=== PATIENT | female | born 1930 | race Caucasian/White ===

== ENCOUNTER 2016-09-06 00:21 | Emergency (ER) ==
[2016-09-06 00:21] VITALS: BMI 26.5
[2016-09-06] MEDS ORDERED: DECADRON 4 MG/ML SDV IM STA (00:31)
[2016-09-06] MEDS ORDERED: TORADOL IM STA (00:31)
[2016-09-06 00:32] VITALS: BP 146/83
--- NOTE | 2016-09-06 00:41 | ED.PDOC ---
General ED Provider: Dr. GERA BORJA Chief Complaint: Hip Pain/Injury Stated Complaint: Been hurting in the left hip and pain goes down, Dr borja, i have sciatica, hurting whole week, today is worse. daughter is in the room, no recent falls. n Time Seen by Physician: 00:57 Mode of Arrival: Wheelchair Information Source: Patient Primary Care Provider: ELSA NASCIMENTO Nursing and Triage Documentation Reviewed and Agree: Yes Musculoskeletal Complaint Exam - Hip/Pelvis Complaint/Exam Location of Pain: Reports: Left Mechanism of Injury: Reports: No known trauma Symptoms Are: Still present Initial Severity: Moderate Current Severity: Severe Location: Reports: Radiating Character: Reports: Aching, Throbbing Aggravating: Reports: Movement Alleviating: Reports: None Associated Signs and Symptoms: Denies: Swelling, Redness, Bruising, Fever, Weakness, Dizziness, Syncope, Abdominal pain, Knee pain Related History: Reports: Similar episode Able to Bear Weight: Yes Septic Arthritis Risk Factors: Reports: None Related Surgical History: Reports: None Rotation: Internal Pelvis Palpation: Stable Hip/Pelvis Findings: Absent: Extremity shortened, Swelling Tenderness: Present: Greater Trochanter Range of Motion Limited In: Present: Flexion, Extension, Abduction, Adduction Differential Diagnoses: Arthritis, Sciatica, Sprain Review of Systems - Review Of Systems Constitutional: Reports: No symptoms Eyes: Reports: No symptoms Ears, Nose, Mouth, Throat: Reports: No symptoms Respiratory: Reports: No symptoms Cardiac: Reports: No symptoms GI: Reports: No symptoms : Reports: No symptoms Musculoskeletal: Reports: Back pain, Joint pain Skin: Reports: No symptoms Neurological: Reports: No symptoms Endocrine: Reports: No symptoms Hematologic/Lymphatic: Reports: No symptoms All Other Systems: Reviewed and Negative Past Medical History - Past Medical History Previously Healthy: No Endocrine: Reports: Dyslipidemia Cardiovascular: Reports: Hypertension Respiratory: Reports: None Hematological: Reports: None Gastrointestinal: Reports: None Genitourinary: Reports: None Neuro/Psych: Reports: None Musculoskeletal: Reports: Arthritis, Back Pain Cancer: Reports: None Last Menstrual Period: post menopausal - Surgical History General Surgical History: Reports: Appendectomy, Cholecystectomy, CABG - Family History Family History: Reports: None - Social History Smoking Status: Never smoker Hx Substance Use: No Alcohol Screening: None - Immunizations Tetanus Shot up to Date: Yes Physical Exam - Physical Exam Appearance: Ill-appearing Pain Distress: Moderate Eyes: EOMI ENT: Ears normal, Nose normal, Oropharynx normal Respiratory: Airway patent, Breath sounds clear, Breath sounds equal, Respirations nonlabored Cardiovascular: RRR, Pulses normal, No rub, No murmur GI/: Soft, Nontender, No masses, Bowel sounds normal, No Organomegaly Musculoskeletal: Limited ROM, Limited strength Skin: Warm, Dry, Normal color Neurological: Sensation intact, Motor intact, Reflexes intact, Cranial nerves intact, Alert, Oriented Psychiatric: Affect appropriate, Mood appropriate Critical Care Note - Critical Care Note Total Time (mins): 0 Course - Course Orders, Labs, Meds: Orders Category Date Time Status Dexamethasone 4 mg/ml Inj [Decadron 4 mg/ml Sdv] MEDS 09/06/16 00:31 Discontinued 4 mg IM ONCE STA Ketorolac Tromethamine [Toradol] MEDS 09/06/16 00:31 Discontinued 60 mg IM ONCE STA CT PELVIS W/O CONTRAST Stat RADS 09/06/16 00:31 Ordered Medications Discontinued Medications Generic Name Dose Route Start Last Admin Trade Name Freq PRN Reason Stop Dose Admin Dexamethasone Sodium Phosphate 4 mg 09/06/16 00:31 09/06/16 00:39 Decadron 4 Mg/Ml Sdv IM 09/06/16 00:32 4 mg ONCE STA Administration Ketorolac Tromethamine 60 mg 09/06/16 00:31 09/06/16 00:43 Toradol IM 09/06/16 00:32 60 mg ONCE STA Administration Vital Signs: Temp Pulse Resp BP Pulse Ox 09/06/16 00:44 100.2 F H 09/06/16 00:22 100 F H 92 H 22 146/83 H 98 Departure - Departure Time of Disposition: 01:01 Disposition: HOME SELF-CARE Discharge Problem: Hip pain Sciatica Qualifiers: Laterality: left Qualifier Code: (M54.32) Sciatica, left side Instructions: Hip Pain (ED), Arthralgia (ED) Condition: Stable Pt referred to PMD for follow-up: Yes Additional Instructions: rest please have f/u with PMD in 3-4 days patient daughter is with her Prescriptions: Hydrocodone/Acetaminophen [[place] 5-325 Tablet] 1 tab PO TID PRN #12 tablet PRN Reason: PAIN Prednisone 10 mg PO BIDWM #14 tablet Allergies/Adverse Reactions: Allergies cephalexin monohydrate [From Realie] Adverse Reaction (Verified 09/06/16 00:31) Rash Home Medications: Ambulatory Orders Aspirin [Aspirin EC] 81 mg PO BEDTIME 06/01/13 Lovastatin 40 mg PO BEDTIME 06/01/13 Amlodipine Besylate [Norvasc] 5 mg PO DAILY #30 tablet 06/06/13 Lisinopril/Hydrochlorothiazide [Lisinopril-Hctz 20-25 mg Tab] 1 each PO DAILY # 30 tablet 06/06/13 Clonidine HCl [Catapres] 0.1 mg PO DAILY 05/12/15 Biotin 1,000 mcg PO DAILY 06/04/16 Calcium Carbonate/Vitamin D3 [Calcium 500 + D Tablet] 1 tab PO DAILY 06/04/16 Hydrocodone/Acetaminophen [[place] 5-325 Tablet] 1 tab PO TID PRN #12 tablet 09/06 Prednisone 10 mg PO BIDWM #14 tablet 09/06/16 Disposition Discussed With: Patient
[2016-09-06 00:45] VITALS: TEMP 100.2
--- NOTE | 2016-09-06 01:53 | CT ---
EXAM: CT pelvis without intravenous contrast 09/06/2016. Sagittal and coronal reformatted images o btained. HISTORY: Left hip pain. Question sciatic nerve pain COMPARISON: None. FINDINGS: No acute soft tissue process within the pelvis. No acute fracture or dislocation identified within the pelvis, right or left hip. Severe degenerative changes of both the right and left hip. End-stage degenerative change of the ri ght hip. [id number] apposition with articular sclerosis, osteophyte formation and subchondral cys t formation. Bulky osteophyte formation at the level of the left hip. IMPRESSION: 1. No acute fracture or subluxation. There is no acute osseous abnormality identified within the p emma, right hip or left hip. 2. Severe degenerative changes of the right and left hip, right greater than left. 3. Additional details as above.
--- NOTE | 2016-09-06 01:56 | CT ---
EXAM: CT scan lumbar spine HISTORY: Left-sided sciatica COMPARISON: None. FINDINGS: Contiguous axial images were obtained through the lumbar spine utilizing three millimeter collimation.. There is mild levoscoliosis There is a 2 mm anterolisthesis of L3 upon L4. Degenera te disc disease . L1-L2 through L4-L5 . Segmental analysis: T12-L1 The central canal foramen are patent. There is facet arthropathy. L1-L2: Moderate concentric disc bulge with facet arthropathy. The central canal and foramen are patent. L2-L3: Moderate concentric disc bulge with facet arthropathy. The central canal and foramen are patent. L3-L4: There is moderate concentric disc bulge with ligamentum flavum and facet hypertrophy stenosing the c entral canal with mild bilateral neural foraminal narrowing. L4-L5: There is a concentric disc bulge with ligamentum flavum and facet hypertrophy narrowing the central canal. There is mild left neural foraminal narrowing. L5-S1: There is mild concentric disc bulge with moderate facet arthropathy. The central canal and foramen are patent. 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 There is central canal stenosis L3-L4 and L4-L5 with neural foraminal narrowing as described.
== END 2016-09-06 02:30 | disposition home or self-care (01) ==
LOC: ED 00:21
DX: M54.32 Sciatica, left side (principal); M25.552 Pain in left hip; Z79.899 Other long term (current) drug therapy
CPT/HCPCS: 96372; 99283

== ENCOUNTER 2016-12-15 06:40 | Outpatient (CLI) ==
[2016-12-15] MEDS ORDERED: ATROPINE SULFATE PFS ONE (06:57)
[2016-12-15] MEDS ORDERED: DOBUTAMINE 250 ML IV ONE (06:57)
--- NOTE | 2016-12-17 08:20 | ECHOSTRESS ---
Date of Exam: 12/15/16 Ordering Physician: ELSA NASCIMENTO Reason for Echo: HTN, CAD, SURGICAL CLEARANCE, DOBUTAMINE STRESS--NO ISCHEMIA M-Mode Normal Adult Results LV Dimensions Normal Adult Results AoV Opening excursions >1.6 LVEDD-base- 3.5-5.8 Ao root dimensions 2.0-3.7 LVESD-base- 3.1-4.6 L. Atrium dimensions 1.9-3.8 Post. Wall thickness 0.8-1.1 IV septum (thickness) 0.7-1.2 Post. Wall excursion 0.72-1.3 Septal motion Systolic motion R. Ventricular cavity 1.5-2.0 LVEF 60% Paradoxical septal wall motion 2-D: NORMAL LEFT VENTRICULAR CONTRACTILITY--RESTING AND WITH DOBUTAMINE INFUSION M-MODE: MV: AV: TV: PV: CHAMBER SIZE: WALL MOTION: NORMAL LEFT VENTRICULAR CONTRACTILITY--RESTING AND WITH DOBUTAMINE INFUSION PERICARDIUM: INTERPRETATION: 1. NORMAL LEFT VENTRICULAR CONTRACTILITY--RESTING AND WITH DOBUTAMINE INFUSION MTDD
--- NOTE | 2016-12-17 08:24 | ECHO2D ---
Date of Exam: 12/15/16 Ordering Physician: ELSA NASCIMENTO Reason for Echo: HTN, CAD, SURGICAL CLEARANCE Auscultation: S1, S2 M-Mode Normal Adult Results LV Dimensions Normal Adult Results AoV Opening excursions >1.6 >1.6 LVEDD-base- 3.5-5.8 4.8 Ao root dimensions 2.0-3.7 2.7 LVESD-base- 3.1-4.6 L. Atrium dimensions 1.9-3.8 3.4 Post. Wall thickness 0.8-1.1 0.8 IV septum (thickness) 0.7-1.2 0.9 Post. Wall excursion 0.72-1.3 NORMAL Septal motion NORMAL Systolic motion R. Ventricular cavity 1.5-2.0 NORMAL LVEF 60% 56% Paradoxical septal wall motion NORMAL 2-D : 2-D M Mode Echocardiogram was performed using apical four chamber and left parasternal long and short axis views. Mitral, tricuspid and aortic valves appear to be normal. Contractility of the left ventricle seems to be normal, so is the cavity size. Left atrial cavity size and aortic root appear to be normal. There is no pericardial effusion. There is no thrombus noted in the left ventricular or left aortic cavity. No mitral valve prolapse noted. M-MODE: MV: NORMAL AV: NORMAL TV: NORMAL PV: CHAMBER SIZE: NORMAL WALL MOTION: NORMAL PERICARDIUM: NORMAL INTERPRETATION: 1. NORMAL LEFT VENTRICULAR CONTRACTILITY 2. NORMAL VALVES 3. NORMAL LEFT VENTRICLE AND LEFT ATRIAL SIZE MTDD
--- NOTE | 2016-12-17 08:32 | DOBSTECHO ---
Ordering Physician: ELSA NASCIMENTO Date of Test: 12/15/16 Reason for Examination: HTN, CAD, SURGICAL CLEARANCE Cardiac History: CABG X 3 Current Medications: MEVACOR, NORVASC, CLONIDINE,ULTRAM, ZESTORETIC, LOPRESSOR Height: 62" Weight: 150 LBS Target Heart Rate: 115/136 ST Segment Stage Time HR BPM BP mmhg Rhythm +/- Up Down Comments/Symptoms Control Sitting 55 144/68 SR X NONE Dobutamine 250mg/D5W 5cmg/KG/mn 10cmg/KG/mn 3" 85 146/64 SR X NONE 15cmg/KG/mn 2" 95 146/56 SR X NONE 20cmg/KG/mn 2" 110 SR X NONE 25cmg/KG/mn :20 117 SR X NONE 30cmg/KG/mn 35cmg/KG/mn 40cmg/KG/mn Time: 4 HR B/P Time: 8 HR B/P Time: HR B/P Recovery 100 132/68 Recovery 72 Recovery Total Time: 7:20 Maximum Heart Rate Reached: 117 Interpretation: 1. NO EVIDENCE OF ISCHEMIA BY ST-T WAVE 2. NO CHEST PAIN OR CHEST DISCOMFORT 3. NORMAL LEFT VENTRICULAR CONTRACTILITY--BEFORE AND DURING DOBUTAMINE INFUSION MTDD
== END 2016-12-15 06:41 | disposition home or self-care (01) ==
LOC: CAR 06:40
PROVIDERS: ATTEND Internal Medicine
DX: Z01.810 Encounter for preprocedural cardiovascular examination (principal); I10 Essential (primary) hypertension; I25.10 Atherosclerotic heart disease of native coronary artery without angina pectoris
CPT/HCPCS: 93005; 93010

== ENCOUNTER 2017-01-22 11:10 | Inpatient (IN) ==
[2017-01-22 12:20] VITALS: BMI 28.5
--- NOTE | 2017-01-22 14:17 | DI ---
EXAM: Chest one view HISTORY: Low saturation COMPARISON: 05/12/2015 TECHNIQUE: Single view of the chest was performed FINDINGS: Bibasilar atelectasis and/or infiltrate. There is no pleural effusion or pneumothorax. The heart is borderline enlarged in size. The mediastinal contour is normal, noting atherosclerosis . Median sternotomy wires.. There are no acute abnormalities of the bones. IMPRESSION: Bibasilar atelectasis and/or pneumonia.
[2017-01-22 14:34] LABS: ABG BASE EXCESS -3 (-2.0-2.0); ABG HCO3 22.4 (22.0-26.0); ABG PCO2 38.3 mmHg (35-45); ABG PH 7.375 (7.35-7.45)
[2017-01-22 14:35] LABS: ABG TCO2 24 (22.0-28.0)
[2017-01-22] MEDS ORDERED: XOPENEX 1.25 MG NEB STA (16:07)
[2017-01-22] MEDS: XOPENEX 1.25 MG NEB SCH ×2 (16:20→23:07)
[2017-01-22] MEDS: XARELTO PO SCH (16:56)
[2017-01-22 18:27] LABS: CREATINE KINASE MB 11.3 ng/ml (0.0-3.6)
[2017-01-22] MEDS: LOPRESSOR PO SCH (20:42)
[2017-01-22] MEDS: MEVACOR PO SCH (20:42)
[2017-01-22] MEDS: CATAPRES PO SCH (20:43)
[2017-01-22] MEDS: OXYCODONE PO PRN (20:48)
[2017-01-22] MEDS ORDERED: NON-FORMULARY MEDICATION (Lovastatin [Lovastatin] 40 MG) PO SCH ×22 (21:00)
[2017-01-23] MEDS: XOPENEX 1.25 MG NEB SCH ×4 (05:06→23:10)
[2017-01-23 06:21] LABS: BASOPHILS % (AUTO) 0.2 % (0.0-3.0); EOSINOPHILS # (AUTO) 0.1 K/ul (0.0-0.7); EOSINOPHILS % (AUTO) 1.2 % (0.0-7.0); HEMATOCRIT 28.3 % (37.0-47.0); HEMOGLOBIN 9.8 g/dl (12.0-16.0); IMMATURE GRANULOCYTE % (AUTO) 0.5 % (0.0-5.0); LYMPHOCYTES # (AUTO) 1.6 K/uL (0.60-3.4); LYMPHOCYTES % (AUTO) 17.2 (10.0-50.0); MEAN CORPUSCULAR HEMOGLOBIN 30.2 pg (27.0-31.0); MEAN CORPUSCULAR HGB CONC 34.6 (31.8-35.4); MEAN CORPUSCULAR VOLUME 87.1 fl (81.0-99.0); MONOCYTES # (AUTO) 0.9 K/uL (0.4-2.0); MONOCYTES % (AUTO) 9.5 (0-10); NEUTROPHILS # (AUTO) 6.8 K/ul (2.0-6.9); NEUTROPHILS % (AUTO) 71.4; PLATELET COUNT 172 10^3/uL (140-440); RED BLOOD COUNT 3.25 10^6/ul (4.20-5.40); WHITE BLOOD COUNT 9.56 K/ul (4.6-10.2)
[2017-01-23 06:41] LABS: ALBUMIN 2.6 g/dL (3.4-5.0); ALBUMIN/GLOBULIN RATIO 0.84; ANION GAP 13.5; BILIRUBIN,TOTAL 0.58 mg/dL (0.00-1.20); BUN/CREATININE RATIO 18.18; CALCIUM 8.9 mg/dL (8.2-10.2); CREATININE 0.77 mg/dL (0.60-1.30); POTASSIUM 3.5 mmol/L (3.5-5.10); TOTAL PROTEIN 5.7 g/dL (5.8-8.1)
[2017-01-23] MEDS: HYDROCHLOROTHIAZIDE PO SCH (08:17)
[2017-01-23] MEDS: CALCIUM 500 + VIT D 200 MG TABLET PO SCH (08:17)
[2017-01-23] MEDS: LOPRESSOR PO SCH (08:18)
[2017-01-23] MEDS: ZESTRIL PO SCH (08:18)
[2017-01-23] MEDS: NON-FORMULARY MEDICATION (Biotin [Biotin] 1,000 MCG) PO SCH (08:18)
[2017-01-23] MEDS: NORVASC PO SCH (08:18)
[2017-01-23] MEDS ORDERED: VITAMIN D3 T PO SCH (09:00)
[2017-01-23] MEDS ORDERED: CATAPRES PO SCH (09:00)
[2017-01-23] MEDS ORDERED: CALCIUM CARBONATE PO SCH (09:00)
[2017-01-23] MEDS ORDERED: [UNRECOGNIZED DRUG - OTHER] PO SCH (09:00)
--- NOTE | 2017-01-23 09:35 | HP ---
DATE OF SERVICE: 01/22/17 REASON FOR HOSPITALIZATION: Total right hip orthoplasty reason for it osteoarthritis HISTORY OF PRESENT ILLNESS: The patient is an 87 year old white female underwent total right hip arthroplasty two days ago. The patient's progress in the past two days has been very remarkable. She has done well and she has tolerated the surgery well with no post op complications so far. When she arrived at [facility] from [facility] her oxygen saturation was found to be in low 80's. It is to be noted that patient has history of chronic lung disease with drop in the oxygen saturation was from activity that she had to undergo from parking lot to the room that she is staying in now. When I saw the patient nearly two hours after that the patient was stable with no distress at all and her oxygen saturation was nearly 93% on 3 liters. The patient was talking with no distress at all, she looked normal. She complained of mild soreness in the right hip. REVIEW OF SYSTEMS: CONSTITUTIONAL: No night sweats. No fatigue, malaise, lethargy. No fever or chills. HEENT: Eyes: No visual changes. No eye pain. No eye discharge. ENT: No runny nose. No epistaxis. No sinus pain. No sore throat. No odynophagia. No ear pain. No congestion. RESPIRATORY: No cough, no congestion. No hemoptysis. CARDIOVASCULAR: No angina symptoms. No CHF symptoms. No atypical chest pain for CAD. No palpitations. No shortness of breath. GASTROINTESTINAL: No abdominal pain. No nausea or vomiting. No diarrhea or constipation. No hematemesis. No hematochezia. GENITOURINARY: No urgency. No frequency. No dysuria. No hematuria. No obstructive symptoms. No discharge. No pain. No significant abnormal bleeding. MUSCULOSKELETAL: No musculoskeletal pain. No joint swelling. No arthritis. Mild right hip soreness. NEUROLOGICAL: No headache. No neck pain. No syncope. No seizures. No dizziness. PSYCHIATRIC: Not anxious. No depression. No suicidal thoughts. No homicidal thoughts. SKIN: No rash. No lesions. No wounds. ENDOCRINE: No unexplained weight loss. No weight gain. HEMATOLOGIC/LYMPHATIC: No anemia. No purpura. No petechiae. No prolonged or excessive bleeding. No palpable lymph nodes. PERSONAL/FAMILY/SOCIAL HISTORY: The patient is and taken care of by family members and daughters. She is non-smoker and no alcohol abuse. PAST MEDICAL/SURGICAL PROBLEMS: The patient has history of now right hip replacement Chronic lung disease Severe hypertension MEDICATIONS: Aspirin Lovastatin Amlodipine Lisinopril Hydrochlorothiazide Clonidine Calcium Carbonate ALLERGIES: Keflex PHYSICAL EXAMINATION: GENERAL: The patient is oriented to time, place and person. VITAL SIGNS: Temperature 98.6, pulse 80, respiratory rate 15, blood pressure 130/70. HEENT: Head normocephalic, atraumatic. Eyes: Extraocular muscles are intact. Pupils are equal, round and reactive to light and accommodation. Ears: No lesions. Nose appeared normal. Throat: No exudate or erythema. NECK: Supple. No JVP, no carotid bruit. No lymphadenopathy or thyromegaly. LUNGS: Decreased breath sounds but clear to auscultation. No wheezing. Percussion note normal. Chest symmetrical. HEART: S1, S2, no S3. No murmurs. No cyanosis or clubbing. No ascites. Pulses: Dorsalis pedis and posterior tibial pulses +1 bilaterally. ABDOMEN: Soft. Nontender. Bowel sounds active. No CVA tenderness. No mass felt. EXTREMITIES: No edema. Full range of motion of all extremities, equal. Right hip incision looks clean. No evidence of infection. No drainage. Both calf muscles are non-tender. NEUROLOGIC: No focal deficit. Cranial nerves II through XII are grossly intact. No headache, no double vision or headache. SKIN: Not dry. Intact. Turgor - normal. LYMPHATIC: No palpable lymph nodes/no lymphedema. MUSCULOSKELETAL: Normal joints with no swelling. Muscle tone is normal. ASSESSMENT: 1. Right hip arthroplasty 2. Chronic lung disease 3. Hypertension 4. Dyslipidemia PLAN: 1. Continue Metoprolol 25mg twice a day 2. Xarelto 20mg PO daily 3. Valium 5mg Q 6 hours 4. Bactrim DS twice a day daily 5. Will add Xopenex four times a day PRN, starting one now 6. Oxygen 2-3 liters 7. ABG's were done 8. EKG showed right bundle branch type of pattern, no acute changes 9. Telemetry 10. Will have oximetry 11. The patient had a chest x-ray done which showed a bibasilar atelectasis and or pneumonia. My opinion the patient is not in distress and she doesn't have fever or chills and breathing quietly with no cough and no congestion. The patient has bibasilar atelectasis the patient would be given Xopenex treatment. 12.The patient's atrial blood gasses on three liters pO2 63, pCO2 30, pH 7.37 with 91% saturation which is acceptable. CONDITION: Stable The patient's daughters are in the room and discussed the patient's condition which is stable. TIME SPENT: More than 70 minutes. ELVA
--- NOTE | 2017-01-23 10:36 | PCM.PROG ---
Attending Provider: ATTENDING PROVIDER: Dr. ELSA NASCIMENTO DATE OF SERVICE: 01/23/17 SUBJECTIVE: This 87 year old WHITE/ F was hospitalized 01/22/17. The patient was admitted yesterday to swing bed for PT after total right hip replacement. The patient is up and about going to bathroom today. Chest x-ray showed bibasilar atelectasis, is on oxygen at 3L doing neb treatments. REVIEW OF SYSTEMS: CONSTITUTIONAL: Fatigue. No night sweats. No fever or chills. HEENT: Eyes: No visual changes. No eye pain. No eye discharge. ENT: No runny nose. No epistaxis. No sinus pain. No odynophagia. No congestion. RESPIRATORY: No cough, no congestion. No hemoptysis. CARDIOVASCULAR: No angina symptoms. No CHF symptoms. No atypical chest pain for CAD. No palpitations. Shortness of breath on minimal exertion. GASTROINTESTINAL: No abdominal pain. No nausea or vomiting. No diarrhea or constipation. No hematemesis. No hematochezia. GENITOURINARY: No urgency. No frequency. No dysuria. No hematuria. No obstructive symptoms. No discharge. No pain. No significant abnormal bleeding. MUSCULOSKELETAL: Weakness. No musculoskeletal pain; no joint swelling. NEUROLOGICAL: Awake, alert, oriented to time, place and person. No headache. No neck pain. No syncope. No seizures. No dizziness. PSYCHIATRIC: Not anxious. No depression. No suicidal thoughts. No homicidal thoughts. SKIN: No rash. Healing incision, right groin area, little bruising. ENDOCRINE: No unexplained weight loss. No weight gain. HEMATOLOGIC/LYMPHATIC: No anemia. No purpura. No petechiae. No prolonged or excessive bleeding. No palpable lymph nodes. PHYSICAL EXAMINATION: GENERAL: The patient is awake, alert and oriented, sitting up in bed in no distress. VITAL SIGNS: Temperature 98 F, Pulse 68, Respiratory Rate 16, BP 139/60, Pulse Ox 99% HEENT: Head normocephalic, atraumatic. Eyes: Extraocular muscles are intact. Pupils are equal, round and reactive to light and accommodation. Ears: No lesions. Nose appeared normal. Throat: No exudate or erythema. NECK: Supple. No JVD, no carotid bruit. No lymphadenopathy or thyromegaly. LUNGS: Bilaterally decreased breath sounds; clear to auscultation. Percussion note normal. Chest symmetrical. HEART: S1, S2, no S3. No murmurs. No cyanosis or clubbing. No ascites. Pulses: Dorsalis pedis and posterior tibial pulses +1 to +2 both sides. ABDOMEN: Soft. Non-tender. Bowel sounds active. No CVA tenderness. No mass felt. EXTREMITIES: No edema. Full range of motion of all extremities, equal. NEUROLOGIC: No focal deficit. Cranial nerves II through XII are grossly intact. No headache, no double vision or headache. SKIN: Not dry. Intact. Turgor-normal. 6" healing incision with mild bruising surrounding, drainage, no redness, appears to be healing well, no sign of infection on right groin area. LYMPHATIC: No palpable lymph nodes/no lymphedema. MUSCULOSKELETAL: Normal joints with no swelling. Muscle tone is normal. LAB REVIEW: 01/23/17 06:10 01/23/17 06:10 01/23/17 06:10: WBC 9.56, RBC 3.25 L, Hgb 9.8 L, Hct 28.3 L, MCV 87.1, MCH 30.2 , MCHC 34.6, RDW Coeff of Norris 14.2, Plt Count 172, Immature Gran % (Auto) 0.5, Neut % (Auto) 71.4, Lymph % (Auto) 17.2, [place] % (Auto) 9.5, Eos % (Auto) 1.2, Baso % (Auto) 0.2, Immature Gran # (Auto) 0.1, Neut # 6.8, Lymph # 1.6, [place] # 0.9, Eos # 0.1, Baso # 0.0, Sodium 133 L, Potassium 3.5, Chloride 101, Carbon Dioxide 22 L, Anion Gap 13.5, BUN 14, Creatinine 0.77, Estimated GFR (MDRD) 71.00, BUN/Creatinine Ratio 18.18, Glucose 99, Calcium 8.9, Total Bilirubin 0.58 , AST 30, ALT 34, Alkaline Phosphatase 86, Total Protein 5.7 L, Albumin 2.6 L, Globulin 3.1, Albumin/Globulin Ratio 0.84 01/22/17 17:27: D-Dimer (Manual) 785.68, Total Creatine Kinase 424, CK-MB (CK-2 ) 11.3 H*, CK-MB (CK-2) % 2.04813, B-Natriuretic Peptide 614 H 01/22/17 14:20: Puncture Site R brach, O2 Saturation 91.0 L, ABG pH 7.375, ABG pCO2 38.3, ABG pO2 63.0 L, ABG HCO3 22.4, ABG Total CO2 24, ABG Base Excess -3 L , Tulio Test +, O2 Delivery Device Nc, Oxygen Liter Flow 3.00 ASSESSMENT: 1. Status post total right hip replacement. 2. COPD. 3. Hypertension. 4. Dyslipidemia. PLAN: 1. Continue Xopenex nebs. 2. PT/OT evaluate and treat. 3. Fall precautions. Plan and coordination of the patient's care discussed in the presence of Chenille Machine Operator and nurse. CONDITION: Stable SCRIBED BY: CAN DUMONT Fruit Grading Supervisor scribed while in presence of service performed by Dr. ELSA NASCIMENTO/LEXIE JULIEN APRN on 01/23/17 ([id number])
--- NOTE | 2017-01-23 11:41 | RS.PTINEVL ---
Subjective - Patient information Date of Evaluation: 01/23/17 Date of Arrival on Unit: 01/22/17 Admitted From:: Facility Transfer (S/p Left MARIYA) Usual Living Arrangement: Alone Home Environment: House, Stairs (few) (3 to get into home) Medical History: Hypertension Medical History Comments:: Chronic lung disease, CABG X5 with Right LE vein harvesting 2001 Surgical History: Cholecystectomy Surgical History Comments:: Appendectomy Subjective Information/ Patient Comments:: Patient states she lives alone. States she was driving, was active in the community, and cared for herself independently prior to this surgery. - Level of function Current Equipment Used at Home: rolling walker, cane, hi-rise seat for toliet Interventions - Objective Patient Orientation: Person, Place, Time, Situation Current Interventions: Oxygen Range of Motion - ROM Right Upper Extremity AROM: WFL's Left Upper Extremity AROM: WFL's Right Lower Extremity AROM: Moderate limitation (hip limited due to recent MARIYA) Left Lower Extremity AROM: WFL's Muscle Strength - Muscle Strength Right Lower Extremity Strength: Mild Weakness Left Lower Extremity Strength: Mild Weakness Balance - Sitting Balance and Reactions Static Sitting Balance: Good Dynamic Sitting Balance: Good Functional Mobility - Transfers Sit to Stand: CGA, Min Assist, 1 person assist, Verbal Cues, Tactile Cues Stand to Sit: CGA, Min Assist, 1 person assist, Verbal Cues, Tactile Cues Stand Pivot Transfers: CGA, 2 person assist, Verbal Cues, Tactile Cues - Safety Awareness Safety Awareness: Fair Ambulation - Ambulation Weight Bearing Status: FWB Assistive Device Used: Rolling Walker Assistance needed with Ambulation: CGA, Min Assist, 2 person assist, Tactile Cues Gait Deviations: Narrow Based gait, Forward posture, Short stride Factors Affecting Ambulation: Breathing/O2 Saturation, Pain, Weakness, Decreased ROM, Decreased Safety, Limited Endurance Treatment time - Time with patient Total treatment time: 19 (mins) Assessment - Assessment Problem List:: Decreased level of function, Requires training/education, Decreased safety/Risk of falls, Weakness, Pain limits previous level of function Rehab Potential: Good Further Therapy Indicated?: Yes Short Term Goals GOAL #1: Supine to sit with min assist for RLE. Goal to be met by: 01/27/17 GOAL #2: Sit to stand with CGA of one and consistent use of UE's to push from chair. Goal to be met by: 01/27/17 GOAL #3: Amb. with RW with CGA of one 150 feet with good base of support. Goal to be met by: 01/27/17 Half-Way Goals GOAL #1: Pt independent with all bed mobility. Goal to be met by: 02/02/17 GOAL #2: Pt independent with all transfers with good safety. Goal to be met by: 02/02/17 GOAL #3: Amb. with RW household distances with good safety. Goal to be met by: 02/02/17 Plan Plan of Care: Therapeutic EX, Neuromuscular Re-Educ, Therapeutic Activity, Self- Care/Home Management Frequency of Treatment: 1-2 X day, as tolerated Duration of Treatment: 10 days Anticipated Discharge Destination: Home
[2017-01-23] MEDS: OXYCODONE PO PRN ×2 (13:30→20:32)
[2017-01-23] MEDS: XARELTO PO SCH (16:32)
--- NOTE | 2017-01-23 16:53 | RS.OTINEVL ---
Subjective - Patient information Date of Evaluation: 01/23/17 Date of Arrival on Unit: 01/22/17 Admitted From:: Facility Transfer (S/p Left MARIYA) Usual Living Arrangement: Alone Living Arrangement Comments: Pt lived alone until her hip began to hurt her so she could not walk. Her family has been coming to help her and staying with her. She has 2-3 steps to enter the home. Pt will have family staying with her when she returns home. Home Environment: House, Stairs (few) (3 to get into home) Medical History: Hypertension Medical History Comments:: Chronic lung disease, CABG X5 with Right LE vein harvesting 2001 Surgical History: Hip Replacement, Cholecystectomy Surgical History Comments:: Appendectomy Subjective Information/ Patient Comments:: I will have family staying with me when I go home. - Level of function Current Equipment Used at Home: rolling walker, cane, hi-rise seat for toliet Pain Assessment - Pain Pain Score: 3 Side: right Pain Location Body Site: Hip Pain Aggravating Factors: ADL's, Changing Position, Standing, Sitting Pain Alleviating Factors: Ice, Exercise, Position Change Interventions - Objective Patient Orientation: Person, Place, Time, Situation Current Interventions: IV's, Oxygen Observation: Pt has difficulty with self care management, decreased bed mobility , decreased BUE strength. Interventions - ROM Right Upper Extremity AROM: WFL's Left Upper Extremity AROM: WFL's - Strength Right Upper Extremity Strength: Mild Weakness Left Upper Extremity Strength: Mild Weakness - Sensation Right Upper Extremity Sensation: Intact/Normal Left Upper Extremity Sensation: Intact/Normal Balance - Sitting Balance Static Sitting Balance: Fair Dynamic Sitting Balance: Fair - Standing Balance Static Standing Balance: Fair Dynamic Standing Balance: Fair ADL Skills - Self Feeding Self Feeding: Independent - Grooming Grooming: CGA, Min Assist - Bathing Bathing UE: CGA Bathing LE: Max Assist - Dressing Dressing UE: CGA Dressing LE: Max Assist - Toilet Management Toileting Management: Min Assist Functional Mobility - Bed Mobility Rolling R/L: Min Assist Scooting: Min Assist Supine to Sit: Min Assist Sit to Supine: Min Assist - Transfers Sit to Stand: CGA Stand to Sit: Min Assist Stand Pivot Transfers: Min Assist - Ambulation Weight Bearing Status: FWB Assistive Device Used: Rolling Walker Assistance needed with Ambulation: Min Assist - Safety Awareness Safety Awareness: Good Additional Treatment Performed - Additional units charged ADL: 15 - Time with patient Total treatment time: 45 Activities Patient Interests:: Reading Books/Magazines, Watching Television, Puzzles/Games , Visiting/Socializing Patient Education Patient Education: Education of diagnosis, Home Exercise Program, Home Safety, Education of Plan of Care Teaching Recipient: Patient, Family Teaching Methods: Teach Back Method Used, Discussion Assessment Problem List:: Decreased level of function, Requires training/education, Decreased safety/Risk of falls, Weakness, Pain limits previous level of function Rehab Potential: Good Further Therapy Indicated?: Yes Short Term Goals - Goals GOAL 1: Pt to increase bed mobility to be supervision. Goal to be met by: 01/30/17 GOAL 2: Pt to increase sink level ADLS to be Supervision. Goal to be met by: 01/30/17 GOAL 3: Pt to tolerate 15 minutes of functional activity with rests PRN. Goal to be met by: 01/30/17 Visual Effects Editor Goals GOAL 1: Pt to increase bed mobility to independent. Goal to be met by: 02/06/17 GOAL 2: Pt to be modified independent with sink level ADLS. Goal to be met by: 02/06/17 GOAL 3: Pt to tolerate functional activity to 20 minutes with rests PRN. Goal to be met by: 02/06/17 Plan Plan of Care: Therapeutic EX, Neuromuscular Re-Educ, Therapeutic Activity, Self- Care/Home Management Modalities: Cold Pack/Cryotherapy Frequency of Treatment: 1-2 X day, as tolerated Duration of Treatment: 2 Weeks Anticipated Discharge Destination: Home
[2017-01-23] MEDS: COLACE PO SCH (20:32)
[2017-01-23] MEDS: CATAPRES PO SCH (20:32)
[2017-01-23] MEDS: MEVACOR PO SCH (20:33)
[2017-01-23 22:01] LABS: BILIRUBIN,URINE Negative (NEGATIVE); KETONES,URINE Negative (NEGATIVE); LEUKOCYTE ESTERASE ,URINE Negative (NEGATIVE); NITRITE,URINE Negative (NEGATIVE); PH,URINE 5.5 (5-9); PROTEIN,URINE Negative (NEGATIVE); URINE, BLOOD 1+ (NEGATIVE)
[2017-01-23 22:02] LABS: ADD URINE MICROSCOPIC YES
[2017-01-24] MEDS: XOPENEX 1.25 MG NEB SCH ×4 (05:08→23:00)
[2017-01-24 05:22] LABS: BASOPHILS % (AUTO) 0.3 % (0.0-3.0); EOSINOPHILS # (AUTO) 0.1 K/ul (0.0-0.7); EOSINOPHILS % (AUTO) 1.3 % (0.0-7.0); HEMOGLOBIN 8.9 g/dl (12.0-16.0); IMMATURE GRANULOCYTE % (AUTO) 0.5 % (0.0-5.0); LYMPHOCYTES # (AUTO) 1.3 K/uL (0.60-3.4); LYMPHOCYTES % (AUTO) 16.6 (10.0-50.0); MEAN CORPUSCULAR HEMOGLOBIN 29.7 pg (27.0-31.0); MEAN CORPUSCULAR HGB CONC 34.2 (31.8-35.4); MEAN CORPUSCULAR VOLUME 86.7 fl (81.0-99.0); MONOCYTES # (AUTO) 0.9 K/uL (0.4-2.0); MONOCYTES % (AUTO) 11.8 (0-10); NEUTROPHILS # (AUTO) 5.2 K/ul (2.0-6.9); NEUTROPHILS % (AUTO) 69.5; PLATELET COUNT 165 10^3/uL (140-440); WHITE BLOOD COUNT 7.53 K/ul (4.6-10.2)
[2017-01-24 05:47] LABS: ALBUMIN 2.3 g/dL (3.4-5.0); ALBUMIN/GLOBULIN RATIO 0.79; ANION GAP 11.7; BILIRUBIN,TOTAL 0.62 mg/dL (0.00-1.20); BUN/CREATININE RATIO 17.64; CALCIUM 8.8 mg/dL (8.2-10.2); CREATININE 0.68 mg/dL (0.60-1.30); POTASSIUM 3.7 mmol/L (3.5-5.10); TOTAL PROTEIN 5.2 g/dL (5.8-8.1)
[2017-01-24] MEDS: CALCIUM 500 + VIT D 200 MG TABLET PO SCH (09:34)
[2017-01-24] MEDS: NON-FORMULARY MEDICATION (Biotin [Biotin] 1,000 MCG) PO SCH (09:34)
[2017-01-24] MEDS: ZESTRIL PO SCH (09:35)
[2017-01-24] MEDS: HYDROCHLOROTHIAZIDE PO SCH (09:35)
[2017-01-24] MEDS: COLACE PO SCH ×2 (09:35→20:33)
[2017-01-24] MEDS: NORVASC PO SCH (09:35)
[2017-01-24] MEDS: OXYCODONE PO PRN (13:09)
[2017-01-24] MEDS: XARELTO PO SCH (18:08)
[2017-01-24] MEDS: MEVACOR PO SCH (20:34)
[2017-01-24] MEDS: CATAPRES PO SCH (20:35)
[2017-01-25] MEDS: XOPENEX 1.25 MG NEB SCH ×4 (05:04→23:22)
[2017-01-25] MEDS: NON-FORMULARY MEDICATION (Biotin [Biotin] 1,000 MCG) PO SCH (09:13)
[2017-01-25] MEDS: CALCIUM 500 + VIT D 200 MG TABLET PO SCH (09:13)
[2017-01-25] MEDS: ZESTRIL PO SCH (09:13)
[2017-01-25] MEDS: NORVASC PO SCH (09:13)
[2017-01-25] MEDS: COLACE PO SCH ×2 (09:13→20:08)
[2017-01-25] MEDS: HYDROCHLOROTHIAZIDE PO SCH (09:14)
[2017-01-25] MEDS: OXYCODONE PO PRN (09:19)
[2017-01-25] MEDS: XARELTO PO SCH (16:35)
[2017-01-25] MEDS: CATAPRES PO SCH (20:09)
[2017-01-25] MEDS: MEVACOR PO SCH (20:09)
[2017-01-26] MEDS: XOPENEX 1.25 MG NEB SCH ×4 (05:18→23:06)
[2017-01-26 08:28] LABS: BASOPHILS % (AUTO) 0.4 % (0.0-3.0); EOSINOPHILS # (AUTO) 0.1 K/ul (0.0-0.7); EOSINOPHILS % (AUTO) 1.7 % (0.0-7.0); HEMATOCRIT 31.1 % (37.0-47.0); HEMOGLOBIN 10.7 g/dl (12.0-16.0); IMMATURE GRANULOCYTE % (AUTO) 0.7 % (0.0-5.0); LYMPHOCYTES # (AUTO) 1.6 K/uL (0.60-3.4); LYMPHOCYTES % (AUTO) 19.5 (10.0-50.0); MEAN CORPUSCULAR HEMOGLOBIN 30.5 pg (27.0-31.0); MEAN CORPUSCULAR HGB CONC 34.4 (31.8-35.4); MEAN CORPUSCULAR VOLUME 88.6 fl (81.0-99.0); MONOCYTES % (AUTO) 11.5 (0-10); NEUTROPHILS # (AUTO) 5.5 K/ul (2.0-6.9); NEUTROPHILS % (AUTO) 66.2; PLATELET COUNT 254 10^3/uL (140-440); RED BLOOD COUNT 3.51 10^6/ul (4.20-5.40); WHITE BLOOD COUNT 8.34 K/ul (4.6-10.2)
[2017-01-26] MEDS: CALCIUM 500 + VIT D 200 MG TABLET PO SCH (08:38)
[2017-01-26] MEDS: ZESTRIL PO SCH (08:38)
[2017-01-26] MEDS: NON-FORMULARY MEDICATION (Biotin [Biotin] 1,000 MCG) PO SCH (08:39)
[2017-01-26] MEDS: HYDROCHLOROTHIAZIDE PO SCH (08:39)
[2017-01-26] MEDS: NORVASC PO SCH (08:39)
[2017-01-26] MEDS: COLACE PO SCH ×2 (08:39→20:45)
[2017-01-26 08:47] LABS: ALBUMIN 2.7 g/dL (3.4-5.0); ALBUMIN/GLOBULIN RATIO 0.75; ANION GAP 14.4; BILIRUBIN,TOTAL 0.71 mg/dL (0.00-1.20); BUN/CREATININE RATIO 14.08; CALCIUM 9.4 mg/dL (8.2-10.2); CREATININE 0.71 mg/dL (0.60-1.30); POTASSIUM 3.4 mmol/L (3.5-5.10); TOTAL PROTEIN 6.3 g/dL (5.8-8.1)
--- NOTE | 2017-01-26 11:22 | PCM.PROG ---
Attending Provider: ATTENDING PROVIDER: Dr. ELSA NASCIMENTO DATE OF SERVICE: 01/26/17 SUBJECTIVE: This 87 year old WHITE/ F was hospitalized 01/22/17. The patient is lying in bed, states she is doing well and has been up and about. She states she feels like she has a "hot spot" along incision site. No fever. hemoglobin is 8.9 on 01/24/17. REVIEW OF SYSTEMS: CONSTITUTIONAL: Pain and weakness right upper leg. No night sweats. No malaise, lethargy. No fever or chills. HEENT: Eyes: No visual changes. No eye pain. No eye discharge. ENT: No runny nose. No epistaxis. No sinus pain. No odynophagia. No congestion. RESPIRATORY: No cough, no congestion. No hemoptysis. CARDIOVASCULAR: No angina symptoms. No CHF symptoms. No atypical chest pain for CAD. No palpitations. No shortness of breath. GASTROINTESTINAL: No abdominal pain. No nausea or vomiting. No diarrhea or constipation. No hematemesis. No hematochezia. GENITOURINARY: No urgency. No frequency. No dysuria. No hematuria. No obstructive symptoms. No discharge. No pain. No significant abnormal bleeding. MUSCULOSKELETAL: No musculoskeletal pain; no joint swelling. NEUROLOGICAL: Awake, alert, oriented to time, place and person. No headache. No neck pain. No syncope. No seizures. No dizziness. PSYCHIATRIC: Not anxious. No depression. No suicidal thoughts. No homicidal thoughts. SKIN: No rash. Positive for 6" incision right groin with mild surrounding erythema no drainage, no warmth ENDOCRINE: No unexplained weight loss. No weight gain. HEMATOLOGIC/LYMPHATIC: No anemia. No purpura. No petechiae. No prolonged or excessive bleeding. No palpable lymph nodes. PHYSICAL EXAMINATION: GENERAL: The patient is awake, alert and oriented, sitting in bed in no distress. VITAL SIGNS: Temperature 97.0 F, Pulse 90, Respiratory Rate 20, BP 140/72, Pulse Ox 99% HEENT: Head normocephalic, atraumatic. Eyes: Extraocular muscles are intact. Pupils are equal, round and reactive to light and accommodation. Ears: No lesions. Nose appeared normal. Throat: No exudate or erythema. NECK: Supple. No JVD, no carotid bruit. No lymphadenopathy or thyromegaly. LUNGS: Clear to auscultation. Percussion note normal. Chest symmetrical. HEART: S1, S2, no S3. No murmurs. No cyanosis or clubbing. No ascites. Pulses: Dorsalis pedis and posterior tibial pulses +1 to +2 both sides. ABDOMEN: Soft. Non-tender. Bowel sounds active. No CVA tenderness. No mass felt. EXTREMITIES: Trace edema right lower extremity edema. Full range of motion of all extremities, equal. NEUROLOGIC: No focal deficit. Cranial nerves II through XII are grossly intact. No headache, no double vision or headache. SKIN: Not dry. Intact. Turgor-normal. There is a 6" incision right groin, mild , surrounding erythema no drainage, no warmth. LYMPHATIC: No palpable lymph nodes/no lymphedema. MUSCULOSKELETAL: Normal joints with no swelling. Muscle tone is normal. LAB REVIEW: 01/24/17 05:00 01/24/17 05:00 ASSESSMENT: 1. Increasing erythema at incision site. 2. Anemia. 3. Status post total right hip replacement. 4. COPD. 5. Hypertension. 6. Dyslipidemia. PLAN: 1. CBC, CMP today 2. Will monitor incision for worsening redness 3. Up and about with assistance as tolerated Plan and coordination of the patient's care discussed in the presence of Death Claim Examiner and nurse. CONDITION: Stable SCRIBED BY: CAN DUMONT Canvas Cutter Hand scribed while in presence of service performed by Dr. ELSA NASCIMENTO/LEXIE JULIEN APRN on 01/26/17 ([id number])
[2017-01-26] MEDS: XARELTO PO SCH (16:14)
[2017-01-26] MEDS: OXYCODONE PO PRN (16:14)
[2017-01-26] MEDS: CATAPRES PO SCH (20:45)
[2017-01-26] MEDS: MEVACOR PO SCH (20:45)
[2017-01-27] MEDS: XOPENEX 1.25 MG NEB SCH ×4 (05:13→23:16)
[2017-01-27] MEDS: NORVASC PO SCH (09:14)
[2017-01-27] MEDS: ZESTRIL PO SCH (09:15)
[2017-01-27] MEDS: HYDROCHLOROTHIAZIDE PO SCH (09:15)
[2017-01-27] MEDS: NON-FORMULARY MEDICATION (Biotin [Biotin] 1,000 MCG) PO SCH (09:15)
[2017-01-27] MEDS: CALCIUM 500 + VIT D 200 MG TABLET PO SCH (09:15)
[2017-01-27] MEDS: COLACE PO SCH ×2 (09:15→20:37)
[2017-01-27] MEDS: OXYCODONE PO PRN (15:28)
[2017-01-27] MEDS: XARELTO PO SCH (16:33)
[2017-01-27] MEDS: CATAPRES PO SCH (20:37)
[2017-01-27] MEDS: MEVACOR PO SCH (20:37)
[2017-01-28] MEDS: XOPENEX 1.25 MG NEB SCH ×4 (05:11→22:41)
[2017-01-28 05:55] LABS: BASOPHILS # (AUTO) 0.1 K/uL (0-0.2); BASOPHILS % (AUTO) 0.5 % (0.0-3.0); EOSINOPHILS # (AUTO) 0.2 K/ul (0.0-0.7); EOSINOPHILS % (AUTO) 2.2 % (0.0-7.0); HEMATOCRIT 30.9 % (37.0-47.0); HEMOGLOBIN 10.2 g/dl (12.0-16.0); IMMATURE GRANULOCYTE % (AUTO) 0.9 % (0.0-5.0); LYMPHOCYTES # (AUTO) 2.3 K/uL (0.60-3.4); LYMPHOCYTES % (AUTO) 24.8 (10.0-50.0); MEAN CORPUSCULAR HEMOGLOBIN 29.7 pg (27.0-31.0); MEAN CORPUSCULAR VOLUME 90.1 fl (81.0-99.0); MONOCYTES % (AUTO) 10.7 (0-10); NEUTROPHILS # (AUTO) 5.6 K/ul (2.0-6.9); NEUTROPHILS % (AUTO) 60.9; PLATELET COUNT 309 10^3/uL (140-440); RED BLOOD COUNT 3.43 10^6/ul (4.20-5.40); WHITE BLOOD COUNT 9.25 K/ul (4.6-10.2)
[2017-01-28 06:16] LABS: ALBUMIN 2.9 g/dL (3.4-5.0); ALBUMIN/GLOBULIN RATIO 0.83; ANION GAP 14.8; BILIRUBIN,TOTAL 0.56 mg/dL (0.00-1.20); BUN/CREATININE RATIO 18.42; CALCIUM 9.9 mg/dL (8.2-10.2); CREATININE 0.76 mg/dL (0.60-1.30); POTASSIUM 3.8 mmol/L (3.5-5.10); TOTAL PROTEIN 6.4 g/dL (5.8-8.1)
[2017-01-28] MEDS: NON-FORMULARY MEDICATION (Biotin [Biotin] 1,000 MCG) PO SCH (09:15)
[2017-01-28] MEDS: NORVASC PO SCH (09:16)
[2017-01-28] MEDS: HYDROCHLOROTHIAZIDE PO SCH (09:16)
[2017-01-28] MEDS: COLACE PO SCH ×2 (09:16→20:41)
[2017-01-28] MEDS: CALCIUM 500 + VIT D 200 MG TABLET PO SCH (09:16)
[2017-01-28] MEDS: ZESTRIL PO SCH (09:16)
--- NOTE | 2017-01-28 10:28 | PCM.PROG ---
Attending Provider: ATTENDING PROVIDER: Dr. ELSA NASCIMENTO DATE OF SERVICE: 01/28/17 SUBJECTIVE: This 87 year old WHITE/ F was hospitalized 01/22/17. The patient has been up walking 3 times a day. She is alert and oriented with good appetite. Anemia has improved since Thursday. REVIEW OF SYSTEMS: CONSTITUTIONAL: No night sweats. No fatigue, malaise, lethargy. No fever or chills. HEENT: Eyes: No visual changes. No eye pain. No eye discharge. ENT: No runny nose. No epistaxis. No sinus pain. No odynophagia. No congestion. RESPIRATORY: No cough, no congestion. No hemoptysis. CARDIOVASCULAR: No angina symptoms. No CHF symptoms. No atypical chest pain for CAD. No palpitations. No shortness of breath. GASTROINTESTINAL: No abdominal pain. No nausea or vomiting. No diarrhea or constipation. No hematemesis. No hematochezia. GENITOURINARY: No urgency. No frequency. No dysuria. No hematuria. No obstructive symptoms. No discharge. No pain. No significant abnormal bleeding. MUSCULOSKELETAL: Right hip pain. NEUROLOGICAL: Awake, alert, oriented to time, place and person. No headache. No neck pain. No syncope. No seizures. No dizziness. PSYCHIATRIC: Not anxious. No depression. No suicidal thoughts. No homicidal thoughts. SKIN: No rash. Incision right anterior hip with no worsening redness, nontender. No drainage. ENDOCRINE: No unexplained weight loss. No weight gain. HEMATOLOGIC/LYMPHATIC: No anemia. No purpura. No petechiae. No prolonged or excessive bleeding. No palpable lymph nodes. PHYSICAL EXAMINATION: GENERAL: The patient is awake, alert and oriented, sitting in the chair in no distress. VITAL SIGNS: Temperature 97.7 F, Pulse 81, Respiratory Rate 18, BP 133/69, Pulse Ox 100% HEENT: Head normocephalic, atraumatic. Eyes: Extraocular muscles are intact. Pupils are equal, round and reactive to light and accommodation. Ears: No lesions. Nose appeared normal. Throat: No exudate or erythema. NECK: Supple. No JVD, no carotid bruit. No lymphadenopathy or thyromegaly. LUNGS: Equal and clear, diminished bilaterally. Percussion note normal. Chest symmetrical. HEART: S1, S2, no S3. No murmurs. No cyanosis or clubbing. No ascites. Pulses: Dorsalis pedis and posterior tibial pulses +1 to +2 both sides. ABDOMEN: Soft. Non-tender. Bowel sounds active. No CVA tenderness. No mass felt. EXTREMITIES: Trace edema right lower extremity. Full range of motion of all extremities, equal. NEUROLOGIC: No focal deficit. Cranial nerves II through XII are grossly intact. No headache, no double vision or headache. SKIN: Not dry. Intact. Turgor-normal. Skin incision right anterior hip with no worsening redness, is nontender, no drainage. LYMPHATIC: No palpable lymph nodes/no lymphedema. MUSCULOSKELETAL: Normal joints with no swelling. Muscle tone is normal. LAB REVIEW: 01/28/17 05:45 01/28/17 05:45 01/28/17 05:45: WBC 9.25, RBC 3.43 L, Hgb 10.2 L, Hct 30.9 L, MCV 90.1, MCH 29.7 , MCHC 33.0, RDW Coeff of Norris 14.4, Plt Count 309, Immature Gran % (Auto) 0.9, Neut % (Auto) 60.9, Lymph % (Auto) 24.8, [place] % (Auto) 10.7 H, Eos % (Auto) 2.2 , Baso % (Auto) 0.5, Immature Gran # (Auto) 0.1, Neut # 5.6, Lymph # 2.3, [place] # 1.0, Eos # 0.2, Baso # 0.1, Sodium 136, Potassium 3.8, Chloride 94 L, Carbon Dioxide 31, Anion Gap 14.8, BUN 14, Creatinine 0.76, Estimated GFR (MDRD) 72.00 , BUN/Creatinine Ratio 18.42, Glucose 112, Calcium 9.9, Total Bilirubin 0.56, AST 33, ALT 46, Alkaline Phosphatase 85, Total Protein 6.4, Albumin 2.9 L, Globulin 3.5, Albumin/Globulin Ratio 0.83 ASSESSMENT: 1. Increasing erythema at incision site, not worsening 2. Anemia, improving 3. Status post total right hip replacement. 4. COPD. 5. Hypertension. 6. Dyslipidemia. PLAN: 1. Will continue to monitor anemia. 2. Continue to monitor incision site. 3. Continue PT/OT. Plan and coordination of the patient's care discussed in the presence of Medical Corps Officer and nurse. CONDITION: Stable SCRIBED BY: CAN DUMONT Asphalt Distributor Tender scribed while in presence of service performed by Dr. ELSA NASCIMENTO/LEXIE JULIEN APRN on 01/28/17 ([id number])
[2017-01-28] MEDS: XARELTO PO SCH (16:54)
[2017-01-28] MEDS: OXYCODONE PO PRN (18:29)
[2017-01-28] MEDS: MEVACOR PO SCH (20:41)
[2017-01-28] MEDS: CATAPRES PO SCH (20:41)
[2017-01-29] MEDS: XOPENEX 1.25 MG NEB SCH ×4 (05:38→22:55)
[2017-01-29] MEDS: NORVASC PO SCH (08:34)
[2017-01-29] MEDS: CALCIUM 500 + VIT D 200 MG TABLET PO SCH (08:34)
[2017-01-29] MEDS: COLACE PO SCH ×2 (08:34→20:45)
[2017-01-29] MEDS: NON-FORMULARY MEDICATION (Biotin [Biotin] 1,000 MCG) PO SCH (08:34)
[2017-01-29] MEDS: HYDROCHLOROTHIAZIDE PO SCH (08:34)
[2017-01-29] MEDS: ZESTRIL PO SCH (08:34)
--- NOTE | 2017-01-29 08:41 | PN ---
DATE OF SERVICE: 01/27/17 SUBJECTIVE: The patient is an 87 year old white female hospitalized with right hip arthroplasty. The patient is recovering very well. The patient has some mild irritation of the right groinal area incision with no evidence of infection or drainage. REVIEW OF SYSTEMS: CONSTITUTIONAL: No night sweats. No fatigue, malaise, lethargy. No fever or chills. HEENT: Eyes: No visual changes. No eye pain. No eye discharge. ENT: No runny nose. No epistaxis. No sinus pain. No sore throat. No odynophagia. No congestion. RESPIRATORY: No cough, no congestion. No hemoptysis. CARDIOVASCULAR: No angina symptoms. No CHF symptoms. No atypical chest pain for CAD. No palpitations. No shortness of breath. GASTROINTESTINAL: No abdominal pain. No nausea or vomiting. No diarrhea or constipation. No hematemesis. No hematochezia. Appetite has improved. GENITOURINARY: No urgency. No frequency. No dysuria. No hematuria. No obstructive symptoms. No discharge. No pain. No significant abnormal bleeding. MUSCULOSKELETAL: No musculoskeletal pain; no joint swelling. NEUROLOGICAL: No headache. No neck pain. No syncope. No seizures. No dizziness. PSYCHIATRIC: Not anxious. No depression. No suicidal thoughts. No homicidal thoughts. SKIN: No rash. No lesions. No wounds. ENDOCRINE: No unexplained weight loss. No weight gain. HEMATOLOGIC/LYMPHATIC: No anemia. No purpura. No petechiae. No prolonged or excessive bleeding. No palpable lymph nodes. PHYSICAL EXAMINATION: GENERAL: The patient is oriented to time, place and person. VITAL SIGNS: Temperature 97.8, pulse 96, respiratory rate 16, blood pressure 146/70 and pulse ox 96%. HEENT: Head normocephalic, atraumatic. Eyes: Extraocular muscles are intact. Pupils are equal, round and reactive to light and accommodation. Ears: No lesions. Nose appeared normal. Throat: No exudate or erythema. NECK: Supple. No JVD, no carotid bruit. No lymphadenopathy or thyromegaly. LUNGS: Decreased breath sounds but clear to auscultation. Percussion note normal. Chest symmetrical. HEART: S1, S2, no S3. No murmurs. No cyanosis or clubbing. No ascites. Pulses: Dorsalis pedis and posterior tibial pulses +1 to +2 both sides. ABDOMEN: Soft. Nontender. Bowel sounds active. No CVA tenderness. No mass felt. EXTREMITIES: No edema. Full range of motion of all extremities, equal. NEUROLOGIC: No focal deficit. Cranial nerves II through XII are grossly intact. No headache, no double vision or headache. SKIN: Not dry. Intact. Turgor - normal. LYMPHATIC: No palpable lymph nodes/no lymphedema. MUSCULOSKELETAL: Normal joints with no swelling. Muscle tone is normal. LABS: Hgb 10.7, hct 31, WBC 9,300 normal differential, creatinine 0.7, BUN 10, potassium 3.54 and BNP 614. ASSESSMENT: 1. Right hip arthroplasty, recovering very well with no evidence of infection. 2. Chronic lung disease, stable 3. Hypokalemia, resolving PLAN: 1. Continue all the medications 2. NEB treatment 3. Continue monitor CBC and CMP CONDITION: Stable TIME SPENT: More than 30 minutes. Plan and coordination of the patient's care discussed in the presence of nurse. ELVA
--- NOTE | 2017-01-29 09:07 | PN ---
DATE OF SERVICE: 01/28/17 SUBJECTIVE: The patient was seen with Nurse Practitioner. The patient is stable and anemia seems to be improving. PHYSICAL EXAMINATION: HEENT: Head normocephalic, atraumatic. Eyes: Extraocular muscles are intact. Pupils are equal, round and reactive to light and accommodation. Ears: No lesions. Nose appeared normal. Throat: No exudate or erythema. NECK: Supple. No JVD, no carotid bruit. No lymphadenopathy or thyromegaly. LUNGS: Decreased breath sounds but clear to auscultation. Percussion note normal. Chest symmetrical. HEART: S1, S2, no S3. No murmurs. No cyanosis or clubbing. No ascites. Pulses: Dorsalis pedis and posterior tibial pulses +1 to +2 both sides. ABDOMEN: Soft. Nontender. Bowel sounds active. No CVA tenderness. No mass felt. EXTREMITIES: No edema. Full range of motion of all extremities, equal. Walking with help. NEUROLOGIC: No focal deficit. Cranial nerves II through XII are grossly intact. No headache, no double vision or headache. SKIN: Not dry. Intact. Turgor - normal. Incision looks dry with mild irritation surrounding part. LYMPHATIC: No palpable lymph nodes/no lymphedema. MUSCULOSKELETAL: Normal joints with no swelling. Muscle tone is normal. TIME SPENT: More than 30 minutes. Plan and coordination of the patient's care discussed in the presence of nurse. ELVA
[2017-01-29] MEDS: XARELTO PO SCH (17:39)
[2017-01-29] MEDS: CATAPRES PO SCH (20:45)
[2017-01-29] MEDS: MEVACOR PO SCH (20:45)
[2017-01-30 04:56] LABS: BASOPHILS # (AUTO) 0.1 K/uL (0-0.2); BASOPHILS % (AUTO) 0.5 % (0.0-3.0); EOSINOPHILS # (AUTO) 0.1 K/ul (0.0-0.7); EOSINOPHILS % (AUTO) 1.4 % (0.0-7.0); HEMATOCRIT 29.6 % (37.0-47.0); HEMOGLOBIN 9.7 g/dl (12.0-16.0); IMMATURE GRANULOCYTE % (AUTO) 0.8 % (0.0-5.0); LYMPHOCYTES % (AUTO) 20.5 (10.0-50.0); MEAN CORPUSCULAR HEMOGLOBIN 29.7 pg (27.0-31.0); MEAN CORPUSCULAR HGB CONC 32.8 (31.8-35.4); MEAN CORPUSCULAR VOLUME 90.5 fl (81.0-99.0); MONOCYTES # (AUTO) 0.9 K/uL (0.4-2.0); MONOCYTES % (AUTO) 9.2 (0-10); NEUTROPHILS # (AUTO) 6.6 K/ul (2.0-6.9); NEUTROPHILS % (AUTO) 67.6; PLATELET COUNT 371 10^3/uL (140-440); RED BLOOD COUNT 3.27 10^6/ul (4.20-5.40); WHITE BLOOD COUNT 9.84 K/ul (4.6-10.2)
[2017-01-30] MEDS: XOPENEX 1.25 MG NEB SCH ×2 (05:04→11:14)
[2017-01-30 05:30] LABS: ALBUMIN 2.8 g/dL (3.4-5.0); ALBUMIN/GLOBULIN RATIO 0.78; BILIRUBIN,TOTAL 0.45 mg/dL (0.00-1.20); BUN/CREATININE RATIO 21.91; CALCIUM 9.8 mg/dL (8.2-10.2); CREATININE 0.73 mg/dL (0.60-1.30); TOTAL PROTEIN 6.4 g/dL (5.8-8.1)
[2017-01-30] MEDS: COLACE PO SCH ×2 (08:45→20:48)
[2017-01-30] MEDS: NON-FORMULARY MEDICATION (Biotin [Biotin] 1,000 MCG) PO SCH (08:45)
[2017-01-30] MEDS: CALCIUM 500 + VIT D 200 MG TABLET PO SCH (08:45)
[2017-01-30] MEDS: NORVASC PO SCH (08:45)
[2017-01-30] MEDS: HYDROCHLOROTHIAZIDE PO SCH (08:46)
[2017-01-30] MEDS: ZESTRIL PO SCH (08:46)
--- NOTE | 2017-01-30 08:46 | PCM.PROG ---
Attending Provider: ATTENDING PROVIDER: Dr. ELSA NASCIMENTO DATE OF SERVICE: 01/30/17 SUBJECTIVE: This 87 year old WHITE/ F was hospitalized 01/22/17. The patient is seen with Danay, Nurse Practitioner. The patient is alert and oriented, sitting up in the chair. The patient has been walking and doing stairs. She states she is feeling well, using walker eating 75 to 100% of meals. REVIEW OF SYSTEMS: CONSTITUTIONAL: No night sweats. No fatigue, malaise, lethargy. No fever or chills. HEENT: Eyes: No visual changes. No eye pain. No eye discharge. ENT: No runny nose. No epistaxis. No sinus pain. No odynophagia. No congestion. RESPIRATORY: No cough, no congestion. No hemoptysis. CARDIOVASCULAR: No angina symptoms. No CHF symptoms. No atypical chest pain for CAD. No palpitations. No shortness of breath. GASTROINTESTINAL: No abdominal pain. No nausea or vomiting. No diarrhea or constipation. No hematemesis. No hematochezia. GENITOURINARY: No urgency. No frequency. No dysuria. No hematuria. No obstructive symptoms. No discharge. No pain. No significant abnormal bleeding. MUSCULOSKELETAL: Pain right hip. NEUROLOGICAL: Awake, alert, oriented to time, place and person. No headache. No neck pain. No syncope. No seizures. No dizziness. PSYCHIATRIC: Not anxious. No depression. No suicidal thoughts. No homicidal thoughts. SKIN: No rash. Skin incision ENDOCRINE: No unexplained weight loss. No weight gain. HEMATOLOGIC/LYMPHATIC: No anemia. No purpura. No petechiae. No prolonged or excessive bleeding. No palpable lymph nodes. PHYSICAL EXAMINATION: GENERAL: The patient is awake, alert and oriented, sitting in chair in no distress. VITAL SIGNS: Temperature 98.7 F, Pulse 80, Respiratory Rate 16, BP 122/58, Pulse Ox 98% HEENT: Head normocephalic, atraumatic. Eyes: Extraocular muscles are intact. Pupils are equal, round and reactive to light and accommodation. Ears: No lesions. Nose appeared normal. Throat: No exudate or erythema. NECK: Supple. No JVD, no carotid bruit. No lymphadenopathy or thyromegaly. LUNGS: Clear equally diminished. Percussion note normal. Chest symmetrical. HEART: S1, S2, no S3. No murmurs. No cyanosis or clubbing. No ascites. Pulses: Dorsalis pedis and posterior tibial pulses +1 to +2 both sides. ABDOMEN: Soft. Non-tender. Bowel sounds active. No CVA tenderness. No mass felt. EXTREMITIES: Trace edema right lower extremity. Full range of motion of all extremities, equal. NEUROLOGIC: No focal deficit. Cranial nerves II through XII are grossly intact. No headache, no double vision or headache. SKIN: There is appropriate healing of incision site with no signs of infection. LYMPHATIC: No palpable lymph nodes/no lymphedema. MUSCULOSKELETAL: Normal joints with no swelling. Muscle tone is normal. LAB REVIEW: 01/30/17 04:30 01/30/17 04:30 01/30/17 04:30: WBC 9.84, RBC 3.27 L, Hgb 9.7 L, Hct 29.6 L, MCV 90.5, MCH 29.7 , MCHC 32.8, RDW Coeff of Norris 14.0, Plt Count 371, Immature Gran % (Auto) 0.8, Neut % (Auto) 67.6, Lymph % (Auto) 20.5, [place] % (Auto) 9.2, Eos % (Auto) 1.4, Baso % (Auto) 0.5, Immature Gran # (Auto) 0.1, Neut # 6.6, Lymph # 2.0, [place] # 0.9, Eos # 0.1, Baso # 0.1, Sodium 137, Potassium 4.0, Chloride 97 L, Carbon Dioxide 29, Anion Gap 15.0, BUN 16, Creatinine 0.73, Estimated GFR (MDRD) 76.00 , BUN/Creatinine Ratio 21.91, Glucose 109, Calcium 9.8, Total Bilirubin 0.45, AST 24, ALT 33, Alkaline Phosphatase 98, Total Protein 6.4, Albumin 2.8 L, Globulin 3.6, Albumin/Globulin Ratio 0.78 ASSESSMENT: 1. Anemia, improving. 2. Status post total right hip replacement. 3. COPD. 4. Hypertension. 5. Dyslipidemia. PLAN: 1. Continue PT/OT. 2. Anticipate discharge next week. Plan and coordination of the patient's care discussed in the presence of Cycle Director and nurse. CONDITION: Stable SCRIBED BY: CAN DUMONT Letter Carrier scribed while in presence of service performed by Dr. ELSA NASCIMENTO/DANAY JULIEN APRN on 01/30/17 ([id number])
--- NOTE | 2017-01-30 15:54 | PN ---
Ms. Barrera states she feels that she will be ready to return home next week. She has been receiving Physical Therapy for safety instruction, strengthening , and to increase her level of independence at home. She has been compliant with all treatment and receptive to instructions and advice. She has shown progress since her initial evaluation on 01/23/17, with bed mobility, transfers, and ambulation. At this time, transfers take supervision to CGA of one for safety. She demonstrates good safety awareness. Her ambulation has improved with distance and improved safety with CGA to supervision to walk with a rolling walker. Short Term Goals GOAL #1: Supine to sit with min assist for RLE. Goal to be met by: 01/27/17 Progressing with bed mobility. Need for assistance with RLE depends on pain level. GOAL #2: Sit to stand with CGA of one and consistent use of UE's to push from chair. Goal to be met by: 01/27/17 Met GOAL #3: Amb. with RW with CGA of one 150 feet with good base of support. Goal to be met by: 01/27/17-- Patient is progressing well with ambulation. She is requiring CGA to supervision. She has been progressing with distances, but has yet to walk 150 feet (household distance) at one time. Alf Goals GOAL #1: Pt independent with all bed mobility. Goal to be met by: 02/02/17 Progressing, again assist needed for RLE depends on pain level. GOAL #2: Pt independent with all transfers with good safety. Goal to be met by: 02/02/17 Progressing GOAL #3: Amb. with RW household distances with good safety. Goal to be met by: 02/02/17 Progressing Ms. Barrera demonstrates potential to gain further independence and safety to decrease her risk for falls at home. Anticipate patient discharge the beginning to middle of next week. MTDD
[2017-01-30] MEDS: XARELTO PO SCH (17:18)
[2017-01-30] MEDS: CATAPRES PO SCH (20:48)
[2017-01-30] MEDS: MEVACOR PO SCH (20:49)
[2017-01-31] MEDS: HYDROCHLOROTHIAZIDE PO SCH (09:58)
[2017-01-31] MEDS: NORVASC PO SCH (09:58)
[2017-01-31] MEDS: NON-FORMULARY MEDICATION (Biotin [Biotin] 1,000 MCG) PO SCH (09:58)
[2017-01-31] MEDS: ZESTRIL PO SCH (09:59)
[2017-01-31] MEDS: CALCIUM 500 + VIT D 200 MG TABLET PO SCH (09:59)
[2017-01-31] MEDS: COLACE PO SCH ×2 (09:59→21:00)
[2017-01-31] MEDS: XARELTO PO SCH (17:13)
[2017-01-31] MEDS: CATAPRES PO SCH (20:59)
[2017-01-31] MEDS: MEVACOR PO SCH (20:59)
[2017-02-01 06:59] LABS: BASOPHILS # (AUTO) 0.1 K/uL (0-0.2); BASOPHILS % (AUTO) 0.6 % (0.0-3.0); EOSINOPHILS # (AUTO) 0.2 K/ul (0.0-0.7); EOSINOPHILS % (AUTO) 1.7 % (0.0-7.0); HEMATOCRIT 31.2 % (37.0-47.0); HEMOGLOBIN 10.4 g/dl (12.0-16.0); IMMATURE GRANULOCYTE % (AUTO) 0.3 % (0.0-5.0); LYMPHOCYTES # (AUTO) 1.9 K/uL (0.60-3.4); LYMPHOCYTES % (AUTO) 21.5 (10.0-50.0); MEAN CORPUSCULAR HEMOGLOBIN 29.7 pg (27.0-31.0); MEAN CORPUSCULAR HGB CONC 33.3 (31.8-35.4); MEAN CORPUSCULAR VOLUME 89.1 fl (81.0-99.0); MONOCYTES # (AUTO) 0.8 K/uL (0.4-2.0); NEUTROPHILS # (AUTO) 5.8 K/ul (2.0-6.9); NEUTROPHILS % (AUTO) 66.9; PLATELET COUNT 412 10^3/uL (140-440); WHITE BLOOD COUNT 8.65 K/ul (4.6-10.2)
[2017-02-01 07:21] LABS: ALBUMIN 2.9 g/dL (3.4-5.0); ALBUMIN/GLOBULIN RATIO 0.85; BILIRUBIN,TOTAL 0.38 mg/dL (0.00-1.20); BUN/CREATININE RATIO 24.67; CALCIUM 9.9 mg/dL (8.2-10.2); CREATININE 0.77 mg/dL (0.60-1.30); TOTAL PROTEIN 6.3 g/dL (5.8-8.1)
[2017-02-01] MEDS: NON-FORMULARY MEDICATION (Biotin [Biotin] 1,000 MCG) PO SCH (08:10)
[2017-02-01] MEDS: ZESTRIL PO SCH (08:11)
[2017-02-01] MEDS: HYDROCHLOROTHIAZIDE PO SCH (08:11)
[2017-02-01] MEDS: CALCIUM 500 + VIT D 200 MG TABLET PO SCH (08:11)
[2017-02-01] MEDS: NORVASC PO SCH (08:11)
[2017-02-01] MEDS: COLACE PO SCH ×2 (08:11→20:23)
[2017-02-01] MEDS: XARELTO PO SCH (16:07)
[2017-02-01] MEDS: OXYCODONE PO PRN (19:55)
[2017-02-01] MEDS: CATAPRES PO SCH (20:22)
[2017-02-01] MEDS: MEVACOR PO SCH (20:23)
[2017-02-02 05:26] VITALS: BP 125/66; TEMP 97
[2017-02-02] MEDS: NORVASC PO SCH (08:13)
[2017-02-02] MEDS: ZESTRIL PO SCH (08:13)
[2017-02-02] MEDS: HYDROCHLOROTHIAZIDE PO SCH (08:13)
[2017-02-02] MEDS: CALCIUM 500 + VIT D 200 MG TABLET PO SCH (08:13)
[2017-02-02] MEDS: NON-FORMULARY MEDICATION (Biotin [Biotin] 1,000 MCG) PO SCH (08:13)
[2017-02-02] MEDS: COLACE PO SCH ×2 (08:14→08:15)
--- NOTE | 2017-02-02 10:14 | PN ---
DATE OF SERVICE: 02/01/17 SUBJECTIVE: The patient is a 87 year old white hospitalized with total right arthroplasty. The patient's incision is dry and very faint redness surrounding part and no drainage at all. The patient is up and about feeling better. REVIEW OF SYSTEMS: CONSTITUTIONAL: No night sweats. No fatigue, malaise, lethargy. No fever or chills. HEENT: Eyes: No visual changes. No eye pain. No eye discharge. ENT: No runny nose. No epistaxis. No sinus pain. No sore throat. No odynophagia. No congestion. RESPIRATORY: No cough, no congestion. No hemoptysis. CARDIOVASCULAR: No angina symptoms. No CHF symptoms. No atypical chest pain for CAD. No palpitations. No shortness of breath. GASTROINTESTINAL: No abdominal pain. No nausea or vomiting. No diarrhea or constipation. No hematemesis. No hematochezia. Appetite is good. GENITOURINARY: No urgency. No frequency. No dysuria. No hematuria. No obstructive symptoms. No discharge. No pain. No significant abnormal bleeding. MUSCULOSKELETAL: No musculoskeletal pain; no joint swelling. NEUROLOGICAL: No headache. No neck pain. No syncope. No seizures. No dizziness. PSYCHIATRIC: Not anxious. No depression. No suicidal thoughts. No homicidal thoughts. SKIN: No rash. No lesions. No wounds. ENDOCRINE: No unexplained weight loss. No weight gain. HEMATOLOGIC/LYMPHATIC: No anemia. No purpura. No petechiae. No prolonged or excessive bleeding. No palpable lymph nodes. PHYSICAL EXAMINATION: GENERAL: The patient is oriented to time, place and person. VITAL SIGNS: Temperature 97.4, pulse 80, respiratory rate 16, blood pressure 130/64 and pulse ox 94% HEENT: Head normocephalic, atraumatic. Eyes: Extraocular muscles are intact. Pupils are equal, round and reactive to light and accommodation. Ears: No lesions. Nose appeared normal. Throat: No exudate or erythema. NECK: Supple. No JVD, no carotid bruit. No lymphadenopathy or thyromegaly. LUNGS: Decreased breath sounds but clear to auscultation. Percussion note normal. Chest symmetrical. HEART: S1, S2, no S3. No murmurs. No cyanosis or clubbing. No ascites. Pulses: Dorsalis pedis and posterior tibial pulses +1 to +2 both sides. ABDOMEN: Soft. Nontender. Bowel sounds active. No CVA tenderness. No mass felt. EXTREMITIES: No edema. Full range of motion of all extremities, equal. The incision is clean on the right inguinal area. No drainage. NEUROLOGIC: No focal deficit. Cranial nerves II through XII are grossly intact. No headache, no double vision or headache. SKIN: Not dry. Intact. Turgor - normal. LYMPHATIC: No palpable lymph nodes/no lymphedema. MUSCULOSKELETAL: Normal joints with no swelling. Muscle tone is normal. LABS: hgb 9.7, hct 29, WBC 9,800 normal differential, creatinine 0.7, BUN 16. ASSESSMENT: 1. Right hip arthroplasty recovering really well. PLAN: 1. Dr. Khushboo Trejo did the surgery and followup appointment will call and make sure the patient knows the date for Dr. Khushboo Trejo to follow. 2. I will see the patient in 7 days. TIME SPENT: More than 30 minutes. Plan and coordination of the patient's care discussed in the presence of nurse. ELVA
--- NOTE | 2017-02-02 10:22 | PCM.PROG ---
Attending Provider: ATTENDING PROVIDER: Dr. ELSA NASCIMENTO DATE OF SERVICE: 02/02/17 SUBJECTIVE: This 87 year old WHITE/ F was hospitalized 01/22/17. The patient is seen with Danay, Nurse Practitioner. The patient is ready to go home. She states her daughters will help her at home. Discussed home health care and she has chosen [facility] for therapy at home. REVIEW OF SYSTEMS: CONSTITUTIONAL: No night sweats. No fatigue, malaise, lethargy. No fever or chills. HEENT: Eyes: No visual changes. No eye pain. No eye discharge. ENT: No runny nose. No epistaxis. No sinus pain. No odynophagia. No congestion. RESPIRATORY: No cough, no congestion. No hemoptysis. CARDIOVASCULAR: No angina symptoms. No CHF symptoms. No atypical chest pain for CAD. No palpitations. No shortness of breath. GASTROINTESTINAL: No abdominal pain. No nausea or vomiting. No diarrhea or constipation. No hematemesis. No hematochezia. GENITOURINARY: No urgency. No frequency. No dysuria. No hematuria. No obstructive symptoms. No discharge. No pain. No significant abnormal bleeding. MUSCULOSKELETAL: Mild swelling right hip. NEUROLOGICAL: Awake, alert, oriented to time, place and person. No headache. No neck pain. No syncope. No seizures. No dizziness. PSYCHIATRIC: Not anxious. No depression. No suicidal thoughts. No homicidal thoughts. SKIN: No rash. Incision site is healing well, no redness. ENDOCRINE: No unexplained weight loss. No weight gain. HEMATOLOGIC/LYMPHATIC: No anemia. No purpura. No petechiae. No prolonged or excessive bleeding. No palpable lymph nodes. PHYSICAL EXAMINATION: GENERAL: The patient is awake, alert and oriented, sitting in chair in no distress. VITAL SIGNS: Temperature 97.0 F, Pulse 74, Respiratory Rate 16, BP 125/66, Pulse Ox 96% HEENT: Head normocephalic, atraumatic. Eyes: Extraocular muscles are intact. Pupils are equal, round and reactive to light and accommodation. Ears: No lesions. Nose appeared normal. Throat: No exudate or erythema. NECK: Supple. No JVD, no carotid bruit. No lymphadenopathy or thyromegaly. LUNGS: Clear to auscultation. Percussion note normal. Chest symmetrical. HEART: S1, S2, no S3. No murmurs. No cyanosis or clubbing. No ascites. Pulses: Dorsalis pedis and posterior tibial pulses +1 to +2 both sides. ABDOMEN: Soft. Non-tender. Bowel sounds active. No CVA tenderness. No mass felt. No redness at incision site. EXTREMITIES: Trace edema right lower extremity. Full range of motion of all extremities, equal. NEUROLOGIC: No focal deficit. Cranial nerves II through XII are grossly intact. No headache, no double vision or headache. SKIN: Not dry. Intact. Turgor-normal. LYMPHATIC: No palpable lymph nodes/no lymphedema. MUSCULOSKELETAL: Normal joints with no swelling. Muscle tone is normal. LAB REVIEW: 02/01/17 06:40 02/01/17 06:40 ASSESSMENT: 1. Anemia, resolved 2. Status post total right hip replacement. 3. COPD. 4. Hypertension. 5. Dyslipidemia. PLAN: 1. Discharge home today. 2. PT through [facility] at home, patient is in agreement. 3. Keep followup appointment with Dr. Khushboo Nascimento. 4. Will see the patient back in Dr. Nascimento's office in one week. 5. Continue Xarelto daily. Plan and coordination of the patient's care discussed in the presence of Doctor Assistant and nurse. CONDITION: Stable SCRIBED BY: Gary JEREZist scribed while in presence of service performed by Dr. ELSA NASCIMENTO/DANAY JULIEN APRN on 02/02/17 ([id number])
--- NOTE | 2017-02-02 14:06 | CM.DICTOOL ---
ADMISSION: 01/22/17 11:10 DISCHARGE: FEBRUARY 02, 2017 DATE OF SERVICE: 02/02/17 FINAL DIAGNOSIS RIGHT HIP ARTHROPLASTY, ANTERIOR, DR. Khushboo NASCIMENTO 01/19/2017 DECLINE IN FUNCTIONAL MOBILITY OSTEOARTHRITIS RIGHT HIP HYPERTENSION ANEMIA CHRONIC LUNG DISEASE DYSLIPIDEMIA UTI CABG, 2003 CHOLECYSTECTOMY APPENDECTOMY LAST VITALS Temp Pulse Resp BP Pulse Ox 97.0 F L 74 16 125/66 96 02/02/17 05:25 02/02/17 05:25 02/02/17 05:25 02/02/17 05:25 02/02/17 05:25 ACTIVE HOME MEDICATIONS Amlodipine Besylate (Norvasc) 5 mg PO DAILY [facility] Last Admin: 02/02/17 08:13 Dose: 5 mg Calcium/Vitamin D (Calcium 500 + Vit D 200 Mg Tablet) 2 each PO DAILY [facility] Last Admin: 02/02/17 08:13 Dose: 2 each Clonidine (Catapres) 0.1 mg PO BEDTIME [facility] Last Admin: 02/01/17 20:22 Dose: 0.1 mg Hydrochlorothiazide (Hydrochlorothiazide) 25 mg PO DAILY [facility] Last Admin: 02/02/17 08:13 Dose: 25 mg Lisinopril (Zestril) 20 mg PO DAILY [facility] Last Admin: 02/02/17 08:13 Dose: 20 mg Lovastatin (Mevacor) 40 mg PO BEDTIME [facility] Last Admin: 02/01/17 20:23 Dose: 40 mg Non-Formulary Medication (Biotin [Biotin]) 1,000 mcg PO DAILY [facility] Last Admin: 02/02/17 08:13 Dose: 1,000 mcg ALLERGIES cephalexin monohydrate [From Keflex] Adverse Reaction (Verified 09/06/16 00:31) Rash NEW PRESCRIPTIONS: XARELTO 10 MG TAKE 1 DAILY AT SUPPER. LAST DOSE DUE 02-10-2017 OXYCODONE 5 MG TAKE 1-3 TABLETS EVERY 4 HOURS NEEDED FOR PAIN ASA 81 MG TAKE 1 TWICE A DAY FOR 3 WEEKS, STARTING ON 02-11-2017 THE ABOVE RX WERE ISSUED BY DR. ANN NASCIMENTO SMOKING: NOT APPLICABLE DISEASE SPECIFIC EDUCATION: HIP PRECAUTIONS ACTIVITY USE OF ICE SURGICAL SITE PRESCRIPTIONS APPOINTMENTS LAB REVIEW: 02/01/17 06:40 02/01/17 06:40 PLAN: DISCHARGE HOME DIET: HEART HEALTHY ACTIVITY: FULL WEIGHT BEARING WITH USE OF ROLLING WALKER MAY USE ICE PACK TO AFFECTED EXTREMITY 20-30 MINUTES EVERY 2 HOURS FOR PAIN, SWELLING. USE BARRIER BETWEEN SKIN AND ICE TO PREVENT FROSTBITE MAY SHOWER. DO NOT SCRUB INCISION. PAT DRY. NO TUB BATHS THE ADHESIVE DRESSING WILL BE REMOVED AT THE OFFICE VISIT ON January CALL DR. Khushboo NASCIMENTO IF ANY REDNESS OR DRAINAGE AT INCISION SITE DO NOT WALK FOR EXERCISE. WALK SEVERAL TIMES A DAY, BUT ONLY FOR SHORT DISTANCES DO NOT TAKE ASA, NSAIDS, ALEVE, IBUPROFEN OR MOTRIN WHILE TAKING THE BLOOD THINNER AND ASPIRIN. [facility] REFERRAL FOR NURSING ASSESSMENT, WOUND ASSESSMENT, NUTRITION PHYSICAL AND OCCUPATIONAL THERAPY EVALUATION CONTINUE MEDICATIONS LISTED ON NURSING DISCHARGE INFORMATION SHEET AN APPOINTMENT IS SCHEDULED WITH DR. ELSA NASCIMENTO ON January AT 2 PM AN APPOINTMENT IS SCHEDULED WITH DR. ANN NASCIMENTO ON January AT 9:40 AM MS. RIVERO IS ALERT AND ORIENTED X 3. SHE IS AMBULATORY WITH FULL WEIGHT BEARING AND USE OF A ROLLING WALKER. SHE REPORTS OCCASIONAL RIGHT HIP PAIN AND REQUIRES OXYCODONE 5 MG. SHE DENIES ABDOMINAL PAIN, NAUSEA OR CONSTIPATION. MEAL INTAKES ARE GOOD AT 100%. RIGHT ANTERIOR HIP INCISION IS WELL APPROXIMATED AND FREE OF REDNESS OR DRAINAGE. THE SKIN IS SLIGHTLY PINK AROUND THE DERMABOND DRESSING. THE SKIN IS OTHERWISE INTACT. ELSA NASCIMENTO MD LEXIE JULIEN APRN
--- NOTE | 2017-02-03 08:19 | PN ---
DATE OF SERVICE: 01/25/17 SUBJECTIVE: The patient is an 87 year old white female hospitalized with osteoarthritis of the right knee which was operated upon with right hip arthroplasty of nearly 6 days ago. The patient earlier had hypoxemia with chronic respiratory failure which is more or less controlled now with oxygen. The patient's condition is stable and appetite is improving and her appetite is improving and progressing very well. Her incision on the right hip looks clear and dry. REVIEW OF SYSTEMS: CONSTITUTIONAL: No night sweats. No fatigue, malaise, lethargy. No fever or chills. HEENT: Eyes: No visual changes. No eye pain. No eye discharge. ENT: No runny nose. No epistaxis. No sinus pain. No sore throat. No odynophagia. No congestion. RESPIRATORY: No cough, no congestion. No hemoptysis. CARDIOVASCULAR: No angina symptoms. No CHF symptoms. No atypical chest pain for CAD. No palpitations. No shortness of breath. GASTROINTESTINAL: No abdominal pain. No nausea or vomiting. No diarrhea or constipation. No hematemesis. No hematochezia. GENITOURINARY: No urgency. No frequency. No dysuria. No hematuria. No obstructive symptoms. No discharge. No pain. No significant abnormal bleeding. MUSCULOSKELETAL: No musculoskeletal pain; no joint swelling. Mild soreness of the right hip. NEUROLOGICAL: No headache. No neck pain. No syncope. No seizures. No dizziness. PSYCHIATRIC: Not anxious. No depression. No suicidal thoughts. No homicidal thoughts. SKIN: No rash. No lesions. No wounds. ENDOCRINE: No unexplained weight loss. No weight gain. HEMATOLOGIC/LYMPHATIC: No anemia. No purpura. No petechiae. No prolonged or excessive bleeding. No palpable lymph nodes. PHYSICAL EXAMINATION: GENERAL: The patient is oriented to time, place and person. VITAL SIGNS: Temperature 98.6, pulse 70, respiratory rate 14, blood pressure 140 /70. HEENT: Head normocephalic, atraumatic. Eyes: Extraocular muscles are intact. Pupils are equal, round and reactive to light and accommodation. Ears: No lesions. Nose appeared normal. Throat: No exudate or erythema. NECK: Supple. No JVD, no carotid bruit. No lymphadenopathy or thyromegaly. LUNGS: Decreased breath sounds but clear to auscultation. Percussion note normal. Chest symmetrical. HEART: S1, S2, no S3. No murmurs. No cyanosis or clubbing. No ascites. Pulses: Dorsalis pedis and posterior tibial pulses +1 to +2 both sides. ABDOMEN: Soft. Nontender. Bowel sounds active. No CVA tenderness. No mass felt. EXTREMITIES: No edema. Full range of motion of all extremities, equal. No calf tenderness. Right hip incision looks good. NEUROLOGIC: No focal deficit. Cranial nerves II through XII are grossly intact. No headache, no double vision or headache. SKIN: Not dry. Intact. Turgor - normal. LYMPHATIC: No palpable lymph nodes/no lymphedema. MUSCULOSKELETAL: Normal joints with no swelling. Muscle tone is normal. LABS: hgb 8.9, hct 26, WBC 7,500 normal differential, creatinine 0.6, BUN 12, potassium 3.7. CONDITION: Stable TIME SPENT: More than 30 minutes. Plan and coordination of the patient's care discussed in the presence of nurse. ELVA
--- NOTE | 2017-02-03 09:53 | PN ---
DATE OF SERVICE: 02/02/17 SUBJECTIVE: The patient is an 87 year old white female hospitalized in the swing bed after status post right arthroplasty. The patient has recovered very nicely and she is up and about. Hgb and hct have been stable. Incision looks clean and no drainage. The patient will be discharged home in stable condition. The patient was seen with Nurse Practitioner. TIME SPENT: More than 30 minutes. Plan and coordination of the patient's care discussed in the presence of nurse. ELVA
--- NOTE | 2017-02-09 11:34 | DS ---
DATE OF SERVICE: 02/02/2017 FINAL DIAGNOSIS: 1. RIGHT HIP ARTHROPLASTY, ANTERIOR, DR. Khushboo NASCIMENTO 01/19/17 2. DECLINE IN FUNCTIONAL MOBILITY 3. OSTEOARTHRITIS RIGHT HIP 4. HYPERTENSION 5. ANEMIA 6. CHRONIC LUNG DISEASE 7. DYSLIPIDEMIA 8. UTI 9. CABG, 2002 10. CHOLECYSTECTOMY 11. APPENDECTOMY VITAL SIGNS AT DISCHARGE: Temperature 97.0, pulse 74, respiratory rate 16, BP 125/66, pulse ox 96 DISCHARGE INSTRUCTIONS: 1. Followup appointment is scheduled with Dr. Cortez Nascimento on 02/09/17 at 2 p.m. 2. An appointment is scheduled with Dr. Khushboo Nascimento on 02/13/17 at 9:40 a.m. 3. [facility] Referral for Physical and Occupational Therapy to evaluate and treat, nursing assessment, wound, nutrition, elimination, respiratory status. 4. Elevate and ice affected extremity 20-30 minutes every 2 hours as needed for swelling and pain. Use barrier between ice pack and skin to prevent frostbite. 5. May shower. Do not scrub incision. Pat dry. No tub baths. 6. The adhesive dressing will be removed at your appointment with Dr. Khushboo Nascimento on the . MEDICATIONS AT DISCHARGE: 1. Aspirin 81 mg p.o. bedtime 2. Lovastatin 40 mg p.o. bedtime 3. Lisinopril/Hydrochlorothiazide 20-25 mg tab, take one each p.o. daily 4. Amlodipine Besylate (Norvasc) 5 mg p.o. daily 5. Clonidine (Catapres) 0.1 mg p.o. daily 6. Biotin 1,000 mcg p.o. daily 7. Calcium Carbonate/Vitamin D3 one tab p.o. daily NEW PRESCRIPTIONS: 1. Xarelto 10 mg take every evening at 5 p.m. The last dose should be taken on 02/10/2017. 2. Oxycodone 5 mg tablets. Take 1-3 tablets as needed every 4 hours for pain. 3. ASA 81 mg one tablet daily. This should start on February 11. Take this for 3 weeks. 4. DO NOT TAKE ANY NSAIDS LIKE NAPROXN, IBUOPROFEN, MOTRIN OR ALEVE WHILE TAKING XARELTO OR ASPIRIN. DIET INSTRUCTIONS: Heart Healthy ACTIVITY: Full weight bearing as tolerated. Use walker for ambulation. SMOKING: N/A DISEASE SPECIFIC EDUCATION: MEDICATIONS APPOINTMENTS HOME HEALTH CARE CARE OF INCISION SITE HOSPITAL COURSE: The patient is an 87 year old white female who was admitted on 01/22/17 to swing bed after having a complete total right hip replacement by Dr. Khushboo Nascimento at the [facility]. She had been discharged from [facility] and was brought to our facility to undergo Physical and Occupational Therapy treatment and evaluation. On the day of admission, the patient had been experiencing some anemia since the surgery, which is to be expected. Hemoglobin was 10.3, hematocrit 31. Over the course of her hospital stay, hemoglobin fluctuated slightly but today, on the day of discharge, it is 10.4 and has been steady for the last couple of days. The patient has done remarkably well since being admitted. She started out having to have assistance getting up out of bed and going to the restroom. She is able to ambulate on her own now and walk up and down the meraz with the assistance of a walker, She has not reported any pain in the past several days. Her incision site looks clean and intact. About the third day it did have some increasing redness. It never had any drainage. That has since resolved. Her labs have remained steady during the course of her hospital stay. UA was normal with a negative urine culture. She has been on Xarelto since being admitted from Dr. Khushboo Nascimento's care. Xarelto 10 mg. She is expected to be no this until the 10 of February and then is to start taking aspirin per Dr. Khushboo Nascimento's order. A home visit was conducted on and stated that the person's home was ready for her to go to. This morning she was seen and states that she feels like going home today. She has been up and about and has agreed to have Physical Therapy and Occupational Therapy in her home three times a week which will be established. On the date of discharge , temperature was 97, heart rate 74, respirations 16, BP 125/66. Oxygen 96% on room air. She is up with minimal assistance and using a rolling walker. At the time of admission, she did have low oxygen saturation for the first 24 hours and was using oxygen at 2L. She quickly weaned off this oxygen after the first 24 hours from admission. She has been eating 75 to 100% of her meals, is not experiencing any pain with ambulation. She has been taking 5 to 10 mg of Oxycodone, only using this about 2 times a day and usually is just needed for severe pain, sometimes with ambulation and some days has not required pain medicine at all. At time of discharge, she states her two daughters are going to be taking turns staying with her at home so she will not be alone. She has a followup appointment scheduled with Dr. Khushboo Nascimento on 02/13 at 9:40 a.m. which she was instructed to keep. She will be discharged home on Xarelto 10 mg preventative for blood clots. All of her other home medications will continue .She has chosen [facility] to come into her home for Physical Therapy treatment and evaluation. She will be discharged from [facility] Therapy. We will continue to follow up with her and will see her in one week at our office. The patient seems to be alert, doing well, up and about on her own and states she is ready to go home on day of discharge. The patient was seen with Nurse Practitioner. TIME SPENT: More than 60 minutes. ELVA
== END 2017-02-02 14:49 | disposition home or self-care (01) | DRG 560 ==
LOC: MEDSURG B 11:10 → UNDODISIN 15:25
PROVIDERS: ADMIT Internal Medicine; ATTEND Internal Medicine
DX: Z47.1 Aftercare following joint replacement surgery (principal); J98.11 Atelectasis; Z96.641 Presence of right artificial hip joint; M16.11 Unilateral primary osteoarthritis, right hip; R06.02 Shortness of breath; R53.81 Other malaise; I10 Essential (primary) hypertension; D64.9 Anemia, unspecified; J44.9 Chronic obstructive pulmonary disease, unspecified; E78.5 Hyperlipidemia, unspecified; E87.6 Hypokalemia; Z95.1 Presence of aortocoronary bypass graft; Z79.899 Other long term (current) drug therapy
CPT/HCPCS: 36415; 80053; 81001; 82550; 82553; 82803; 83880; 85025; 85379; 87081; 93005; 93010; 94640; 97802

== ENCOUNTER 2018-08-18 11:10 | Inpatient (IN) ==
[2018-08-18] MEDS ORDERED: CARDENE-NACL 20 MG/200 ML SOLN 200 ML IV ONE ×3 (11:45→19:55)
[2018-08-18] MEDS: CARDENE-NACL 20 MG/200 ML SOLN 20 MG in PREMIX 200ML 0.86% SODIUM CHLORIDE 1 BAG IV SCH ×3 (11:52→20:02)
[2018-08-18] MEDS ORDERED: LASIX TAB PO PRN (12:19)
--- NOTE | 2018-08-18 12:26 | ED.PDOC ---
General ED Provider: Dr. JESSICA SCHREIBER Chief Complaint: Hypertension Stated Complaint: HYPERTENSION Time Seen by Physician: 11:10 (NO CHEST PAIN NURSE PRESENT DURING EXAM AT ALL TIMES [facility] Mode of Arrival: Walk-In Information Source: Patient Exam Limitations: No limitations Primary Care Provider: ELSA NASCIMENTO Nursing and Triage Documentation Reviewed and Agree: Yes Does patient meet sepsis criteria?: No System Inflammatory Response Syndrome: Not Applicable Sepsis Protocol: For patient's 13 years and over: Temp is 96.8 and below OR 101 and greater Pulse >90 BPM Resp >20/minute Acutely Altered Mental Status Are patient's symptoms suggestive of a new infection, such as: -Pneumonia -Skin, Soft Tissue -Endocarditis -UTI -Bone, Joint Infection -Implantable Device -Acute Abdominal Infection -Wound Infection -Meningitis -Blood Stream Catheter Infection -Unknown Cardiovascular Complaint Exam - Hypertension Complaint/Exam Symptoms Are: Still present Timing: Constant Reported B/P Prior to Arrival: 250/70 Aggravating: Reports: None Alleviating: Reports: None Associated Signs and Symptoms: Denies: Chest pain, Vision changes, Anxiety, Recent stress, Headache, Numbness, Tingling, Weakness, Dizziness, Short of air, Swelling Related History: Reports: Similar episode Related Surgical History: Reports: None Cardiac Risk Factors: Reports: Hypertension Recent Change in Medications: No A/V [place]icking: No Papilledema Present: No JVD Present: No Carotid Bruit Present: No Femoral Pulses Bounding: No Differential Diagnoses: Hypertension, Hypertensive Urgency Quality Indicator For Non-Traumatic Chest Pain/Syncope: EKG Performed Review of Systems - Review Of Systems Constitutional: Reports: No symptoms Eyes: Reports: No symptoms Ears, Nose, Mouth, Throat: Reports: No symptoms Respiratory: Reports: No symptoms Cardiac: Reports: No symptoms GI: Reports: No symptoms : Reports: No symptoms Musculoskeletal: Reports: No symptoms Skin: Reports: No symptoms Neurological: Reports: No symptoms Endocrine: Reports: No symptoms Hematologic/Lymphatic: Reports: No symptoms All Other Systems: Reviewed and Negative Past Medical History - Past Medical History Previously Healthy: No Endocrine: Reports: Dyslipidemia Cardiovascular: Reports: Hypertension Respiratory: Reports: None Hematological: Reports: None Gastrointestinal: Reports: None Genitourinary: Reports: None Neuro/Psych: Reports: None Musculoskeletal: Reports: Arthritis, Back Pain Cancer: Reports: None Last Menstrual Period: none - Surgical History General Surgical History: Reports: Appendectomy, Cholecystectomy, CABG - Family History Family History: Reports: None - Social History Smoking Status: Never smoker Hx Substance Use: No Alcohol Screening: None Physical Exam - Physical Exam Appearance: Well-appearing, No pain distress, Well-nourished Eyes: JAYCEE, EOMI, Conjunctiva clear ENT: Ears normal, Nose normal, Oropharynx normal Respiratory: Airway patent, Breath sounds clear, Breath sounds equal, Respirations nonlabored Cardiovascular: RRR, Pulses normal, No rub, No murmur GI/: Soft, Nontender, No masses, Bowel sounds normal, No Organomegaly Musculoskeletal: Normal strength, ROM intact, No edema, No calf tenderness Skin: Warm, Dry, Normal color Neurological: Sensation intact, Motor intact, Reflexes intact, Cranial nerves intact, Alert, Oriented Psychiatric: Affect appropriate, Mood appropriate Interpretation - Chief Sustainability Officer Rate: Aristides Rhythm: Sinus Ectopy: None - EKG Interpretation Rate: Aristides Rhythm: Sinus Re-Evaluation - Re-Evaluation Time of Re-Evaluation: 12:26 (PT DENIES CHEST PAIN AND NOT SHORT OF BREATH ) Status: Unchanged Vital Signs Stable: Yes Pain Level: 0 Appearance: NAD Lungs: Clear Skin: Warm and Dry Neuro: Alert and Oriented X3 CV: RRR Additional Comments: neuro exam wnl no deficit no vision related issue RN PRESENT DURING THE RE Physician Notification - Case Discussed Physician Notified: 12:30 Time of Notification: 12:25 Admit To: Inpatient Critical Care Note - Critical Care Note Total Time (mins): 60 Course - Course Hematology/Chemistry: 08/18/18 11:45 08/18/18 11:45 Orders, Labs, Meds: Lab Review 08/18/18 08/18/18 11:45 11:45 WBC 6.36 RBC 5.04 Hgb 15.1 Hct 45.0 MCV 89.3 MCH 30.0 MCHC 33.6 RDW Coeff of Norris 12.4 Plt Count 188 Immature Gran % (Auto) 0.2 Neut % (Auto) 61.0 Lymph % (Auto) 22.8 [place] % (Auto) 11.0 H Eos % (Auto) 4.4 Baso % (Auto) 0.6 Immature Gran # (Auto) 0.0 Neut # (Auto) 3.9 Lymph # (Auto) 1.5 [place] # (Auto) 0.7 Eos # (Auto) 0.3 Baso # (Auto) 0.0 Sodium 139.4 Potassium 4.47 Chloride 100.0 Carbon Dioxide 30.7 H Anion Gap 13.17 BUN 17.9 H Creatinine 0.91 Estimated GFR (MDRD) 59.00 BUN/Creatinine Ratio 19.67 Glucose 131.2 H Calcium 9.65 Total Bilirubin 0.96 AST 24.3 ALT 18.1 Alkaline Phosphatase 98.5 Total Creatine Kinase 46.1 Troponin I < 0.012 Total Protein 7.24 Albumin 4.24 Globulin 3.00 Albumin/Globulin Ratio 1.41 Orders Category Date Time Status EKG-(ED ONLY) Stat CARDIO 08/18/18 11:25 Completed EKG-(IP & OP ONLY) DAILY CARDIO 08/19/18 06:00 Ordered EKG-(IP & OP ONLY) DAILY CARDIO 08/20/18 06:00 Ordered EKG-(IP & OP ONLY) DAILY CARDIO 08/21/18 06:00 Ordered ACTIVITY .Complete BR CARE 08/18/18 12:22 Ordered Neuro Check [NEUROLOGICAL CHECKS] Q4HR CARE 08/18/18 12:22 Ordered VITAL SIGNS Q8HR CARE 08/18/18 12:22 Ordered REGULAR DIET DIETARY 08/18/18 Lunch Ordered ED IV/MEDIPORT/POWERPORT .ONCE EMERGENCY 08/18/18 11:25 Active CBC W/ AUTO DIFF DAILY@0600 LAB 08/19/18 06:00 Ordered CBC W/ AUTO DIFF DAILY@0600 LAB 08/20/18 06:00 Ordered CBC W/ AUTO DIFF Stat LAB 08/18/18 11:45 Completed COMPREHENSIVE METABOLIC PANEL DAILY@0600 LAB 08/19/18 06:00 Ordered COMPREHENSIVE METABOLIC PANEL DAILY@0600 LAB 08/20/18 06:00 Ordered COMPREHENSIVE METABOLIC PANEL Stat LAB 08/18/18 11:45 Completed CREATINE KINASE Q8H LAB 08/18/18 18:30 Ordered CREATINE KINASE Q8H LAB 08/19/18 02:30 Ordered CREATINE KINASE Stat LAB 08/18/18 11:45 Completed TROPONIN I Q8H LAB 08/18/18 18:30 Ordered TROPONIN I Q8H LAB 08/19/18 02:30 Ordered TROPONIN I Stat LAB 08/18/18 11:45 Completed URINALYSIS C & S IF INDICATED Stat LAB 08/18/18 11:24 Uncollected 0.9 % Sodium Chloride [Premix 200Ml 0.86% Sodium MEDS 08/18/18 11:30 Active Chloride] 1 bag Nicardipine in NaCl, Iso-Osm [Cardene-NaCl 20 mg/200 ml Soln] 20 mg IV 5 mg/hr 0.9 % Sodium Chloride [Saline Flush] MEDS 08/18/18 11:24 Active 1 syr IVF PRN PRN Aspirin [Aspirin EC] MEDS 08/18/18 21:00 Ordered 81 mg PO BEDTIME Calcium Carbonate/Vitamin D3 [Calcium 500-Vit D3 400 MEDS 08/19/18 09:00 Ordered Tablet] 1 tab PO DAILY Clonidine HCl [Catapres] MEDS 08/18/18 21:00 Ordered 0.1 mg PO BID Furosemide [Lasix Tab] MEDS 08/18/18 12:19 Ordered 40 mg PO QDAC PRN Lisinopril [Zestril] MEDS 08/18/18 21:00 Ordered 20 mg PO BID Lovastatin [Lovastatin] MEDS 08/18/18 21:00 Ordered 40 mg PO BEDTIME Metoprolol Succinate [Toprol Xl] MEDS 08/18/18 21:00 Ordered 25 mg PO BID Nicardipine in NaCl, Iso-Osm [Cardene-NaCl 20 mg/200 ml MEDS 08/18/18 11:45 Discontinued Soln] 200 ml IV .STK-MED Sodium Chloride 0.9% [Sodium Chloride] 1,000 ml MEDS 08/18/18 12:30 Ordered IV 75 mls/hr Medications Generic Name Dose Route Start Last Admin Trade Name Freq PRN Reason Stop Dose Admin Aspirin 81 mg 08/18/18 21:00 Aspirin Ec PO BEDTIME BRAYDEN Clonidine 0.1 mg 08/18/18 21:00 Catapres PO BID BRAYDEN Furosemide 40 mg 08/18/18 12:19 Lasix Tab PO QDAC PRN Blood Pressure Nicardipine/Sodium Chloride 20 200 mls @ 50 mls/hr 08/18/18 11:30 08/18/18 11 :52 mg/ Sodium Chloride IV 5 mg/hr .Q4H BRAYDEN 50 mls/hr Administration Protocol 5 MG/HR Sodium Chloride 1,000 mls @ 75 mls/hr 08/18/18 12:30 Sodium Chloride IV .[id number] BRAYDEN Metoprolol Succinate 25 mg 08/18/18 21:00 Toprol Xl PO BID BRAYDEN Non-Formulary Medication 1 tab 08/19/18 09:00 Calcium Carbonate/Vitamin D3 [Calcium 500-Vit D3 400 Tablet] PO DAILY BRAYDEN Non-Formulary Medication 40 mg 08/18/18 21:00 Lovastatin [Lovastatin] PO BEDTIME BRAYDEN Non-Formulary Medication 20 mg 08/18/18 21:00 Lisinopril [Zestril] PO BID BRAYDEN Sodium Chloride 1 syr 08/18/18 11:24 08/18/18 11:53 Saline Flush IVF 1 syr PRN PRN Administration To flush IV Vital Signs: Temp Pulse Resp BP Pulse Ox 08/18/18 11:10 98.9 F 62 20 230/97 H 94 L ELIGIO Risk Score ELIGIO Risk Score: Risk Score Odds of by 30D 0 0.1 (0.1-0.2) 1 0.3 (0.2-0.3) 2 0.4 (0.3-0.5) 3 0.7 (0.6-0.9) 4 1.2 (1.0-1.5) 5 2.2 (1.9-2.6) 6 3.0 (2.5-3.6) 7 4.8 (3.8-6.1) Departure - Departure Time of Disposition: 12:36 Disposition: ADMITTED INPATIENT Discharge Problem: Hypertension Qualifiers: Hypertension type: unspecified Qualified Code(s): I10 - Essential (primary) hypertension Condition: Good Pt referred to PMD for follow-up: Yes IPMP verified?: No Allergies/Adverse Reactions: Allergies cephalexin monohydrate [From Keflex] Adverse Reaction (Verified 08/18/18 11:15) Rash pravastatin [From Pravachol] Adverse Reaction (Verified 08/18/18 11:15) Home Medications: Ambulatory Orders Aspirin [Aspirin EC] 81 mg PO BEDTIME 06/01/13 Lovastatin 40 mg PO BEDTIME 06/01/13 Clonidine HCl [Catapres] 0.1 mg PO BID 05/12/15 Calcium Carbonate/Vitamin D3 [Calcium 500 + D Tablet] 1 tab PO DAILY 06/04/16 Furosemide [Lasix Tab] 40 mg PO QDAC PRN 08/18/18 Lisinopril [Zestril] 20 mg PO BID 08/18/18 Metoprolol Succinate [Toprol Xl] 25 mg PO BID 08/18/18 Potassium Chloride [K-Dur] 20 meq PO ONCE PRN 08/18/18 Disposition Discussed With: Patient
[2018-08-18 16:32] VITALS: BMI 28.4
[2018-08-18] MEDS: MEVACOR PO SCH (20:06)
[2018-08-18] MEDS: ASPIRIN EC PO SCH (20:06)
[2018-08-18] MEDS: CATAPRES PO SCH (20:06)
[2018-08-18] MEDS: TOPROL XL PO SCH (20:06)
[2018-08-18] MEDS ORDERED: NON-FORMULARY MEDICATION (Lisinopril [Zestril] 20 MG) PO SCH (21:00)
[2018-08-18] MEDS ORDERED: NON-FORMULARY MEDICATION (Lovastatin [Lovastatin] 40 MG) PO SCH (21:00)
[2018-08-18] MEDS ORDERED: ZESTRIL PO SCH (21:00)
[2018-08-18] MEDS: SODIUM CHLORIDE 1,000 ML IV SCH (23:28)
[2018-08-19] MEDS ORDERED: CARDENE-NACL 20 MG/200 ML SOLN 200 ML IV ONE ×2 (02:09→06:26)
[2018-08-19] MEDS: CARDENE-NACL 20 MG/200 ML SOLN 20 MG in PREMIX 200ML 0.86% SODIUM CHLORIDE 1 BAG IV SCH ×6 (02:11→19:54)
[2018-08-19] MEDS: SODIUM CHLORIDE 1,000 ML IV SCH ×3 (03:51→16:58)
[2018-08-19] MEDS ORDERED: COZAAR PO ONE (08:16)
[2018-08-19] MEDS ORDERED: HYDROCHLOROTHIAZIDE PO ONE (08:17)
[2018-08-19] MEDS ORDERED: [UNRECOGNIZED DRUG - OTHER] PO SCH (09:00)
[2018-08-19] MEDS ORDERED: CALCIUM CARBONATE PO SCH (09:00)
[2018-08-19] MEDS ORDERED: VITAMIN D3 T PO SCH (09:00)
[2018-08-19] MEDS: CALCIUM 500 + VIT D 200 MG TABLET PO SCH (09:42)
[2018-08-19] MEDS: CATAPRES PO SCH ×2 (09:42→21:09)
[2018-08-19] MEDS: TOPROL XL PO SCH ×2 (09:43→21:09)
--- NOTE | 2018-08-19 09:51 | PCM.PROG ---
Attending Provider: ATTENDING PROVIDER: Dr. ELSA NASCIMENTO DATE OF SERVICE: 08/19/18 SUBJECTIVE: This 88 year old WHITE/ F was hospitalized 08/18/18 with hypertensive urgency. Blood pressure systolic is more than 250. She is feeling good on Cardene drip from ER. EKG showed sinus rhythm, no acute changes. REVIEW OF SYSTEMS: CONSTITUTIONAL: No night sweats. No fatigue, malaise, lethargy. No fever or chills. HEENT: Eyes: No visual changes. No eye pain. No eye discharge. ENT: No runny nose. No epistaxis. No sinus pain. No odynophagia. No congestion. RESPIRATORY: No cough, no congestion. No hemoptysis. No shortness of breath. CARDIOVASCULAR: No angina symptoms. No CHF symptoms. No atypical chest pain for CAD. No palpitations. No orthopnea.. GASTROINTESTINAL: No abdominal pain. No nausea or vomiting. No diarrhea or constipation. No hematemesis. No hematochezia. GENITOURINARY: No urgency. No frequency. No dysuria. No hematuria. No obstructive symptoms. No discharge. No pain. No significant abnormal bleeding. MUSCULOSKELETAL: No musculoskeletal pain; no joint swelling. NEUROLOGICAL: Awake, alert, oriented to time, place and person. No headache. No neck pain. No syncope. No seizures. No dizziness. PSYCHIATRIC: Not anxious. No depression. No suicidal thoughts. No homicidal thoughts. SKIN: No rash. No lesions. No wounds. ENDOCRINE: No unexplained weight loss. No weight gain. HEMATOLOGIC/LYMPHATIC: No anemia. No purpura. No petechiae. No prolonged or excessive bleeding. No palpable lymph nodes. PHYSICAL EXAMINATION: GENERAL: The patient is awake, alert and oriented, lying in bed in no distress. VITAL SIGNS: Temperature 98.4 F, Pulse 58, Respiratory Rate 18, BP 134/48, Pulse Ox 96% HEENT: Head normocephalic, atraumatic. Eyes: Extraocular muscles are intact. Pupils are equal, round and reactive to light and accommodation. Ears: No lesions. Nose appeared normal. Throat: No exudate or erythema. NECK: Supple. No JVD, no carotid bruit. No lymphadenopathy or thyromegaly. LUNGS: Clear to auscultation. Percussion note normal. Chest symmetrical. HEART: S1, S2, no S3. No murmurs. No cyanosis or clubbing. No ascites. Pulses: Dorsalis pedis and posterior tibial pulses +1 to +2 both sides. ABDOMEN: Soft. Non-tender. Bowel sounds active. No CVA tenderness. No mass felt. EXTREMITIES: No edema. Full range of motion of all extremities, equal. NEUROLOGIC: No focal deficit. Cranial nerves II through XII are grossly intact. No headache, no double vision or headache. SKIN: Warm and dry. Intact. Turgor-normal. LYMPHATIC: No palpable lymph nodes/no lymphedema. MUSCULOSKELETAL: Normal joints with no swelling. Muscle tone is normal. LAB REVIEW: 08/19/18 02:48 08/19/18 02:48 08/19/18 02:48: Sodium 138.2, Potassium 3.98, Chloride 103.3, Carbon Dioxide 26.2, Anion Gap 12.68, BUN 17.5 H, Creatinine 0.77, Estimated GFR (MDRD) 71.00, BUN/Creatinine Ratio 22.72, Glucose 109.4 H, Calcium 9.30, Total Bilirubin 0.80 , AST 26.0, ALT 16.4, Alkaline Phosphatase 94.2, Total Protein 7.06, Albumin 3.97, Globulin 3.09, Albumin/Globulin Ratio 1.28 08/19/18 02:48: WBC 7.11, RBC 4.76, Hgb 14.3, Hct 42.3, MCV 88.9, MCH 30.0, MCHC 33.8, RDW Coeff of [place] 12.3, Plt Count 178, Immature Gran % (Auto) 0.3, Neut % (Auto) 55.9, Lymph % (Auto) 28.0, [place] % (Auto) 11.3 H, Eos % (Auto) 3.5 , Baso % (Auto) 1.0, Immature Gran # (Auto) 0.0, Neut # (Auto) 4.0, Lymph # ( Auto) 2.0, [place] # (Auto) 0.8, Eos # (Auto) 0.3, Baso # (Auto) 0.1 08/19/18 02:48: Total Creatine Kinase 48.4, Troponin I 0.021 08/18/18 18:36: Total Creatine Kinase 47.1, Troponin I < 0.012 08/18/18 12:15: Urine Color Yellow, Urine Clarity Clear, Urine pH 6.5, Ur Specific [place] <=1.005, Urine Protein Negative, Urine Glucose (UA) Negative, Urine Ketones Negative, Urine Blood 1+, Urine Nitrite Negative, Urine Bilirubin Negative, Urine Urobilinogen 0.2, Ur Leukocyte Esterase Negative, Urine Microscopic RBC 0-2, Ur Squamous Epith Cells 0-2 08/18/18 11:45: Sodium 139.4, Potassium 4.47, Chloride 100.0, Carbon Dioxide 30.7 H, Anion Gap 13.17, BUN 17.9 H, Creatinine 0.91, Estimated GFR (MDRD) 59.00 , BUN/Creatinine Ratio 19.67, Glucose 131.2 H, Calcium 9.65, Total Bilirubin 0.96, AST 24.3, ALT 18.1, Alkaline Phosphatase 98.5, Total Creatine Kinase 46.1 , Troponin I < 0.012, Total Protein 7.24, Albumin 4.24, Globulin 3.00, Albumin/ Globulin Ratio 1.41 08/18/18 11:45: WBC 6.36, RBC 5.04, Hgb 15.1, Hct 45.0, MCV 89.3, MCH 30.0, MCHC 33.6, RDW Coeff of [place] 12.4, Plt Count 188, Immature Gran % (Auto) 0.2, Neut % (Auto) 61.0, Lymph % (Auto) 22.8, [place] % (Auto) 11.0 H, Eos % (Auto) 4.4 , Baso % (Auto) 0.6, Immature Gran # (Auto) 0.0, Neut # (Auto) 3.9, Lymph # ( Auto) 1.5, [place] # (Auto) 0.7, Eos # (Auto) 0.3, Baso # (Auto) 0.0 ASSESSMENT: 1. Hypertension seems under control with Cardene drip; however, plan to change to Hyzaar 100/12.5 mg daily. PLAN: 1. Clonidine 0.1 mg twice a day. 2. Metoprolol as before. 3. Losartan/HCTZ 100/12.5 mg p.o. this morning - one dose. 4. D/C Zestril. 5. Continue Toprol and Catapres. Plan and coordination of the patient's care discussed in the presence of Roll Dough Divider and nurse. CONDITION: Stable SCRIBED BY: CAN DUMONT, [place] Operator scribed while in presence of service performed by Dr. ELSA NASCIMENTO on 08/19/18 ([id number])
[2018-08-19] MEDS: MEVACOR PO SCH (21:08)
[2018-08-19] MEDS: ASPIRIN EC PO SCH (21:08)
[2018-08-20] MEDS: CARDENE-NACL 20 MG/200 ML SOLN 20 MG in PREMIX 200ML 0.86% SODIUM CHLORIDE 1 BAG IV SCH ×6 (00:19→20:54)
[2018-08-20] MEDS: CALCIUM 500 + VIT D 200 MG TABLET PO SCH (08:54)
[2018-08-20] MEDS: CATAPRES PO SCH ×2 (08:54→20:28)
[2018-08-20] MEDS: NORVASC PO SCH ×2 (08:54→20:29)
[2018-08-20] MEDS: TOPROL XL PO SCH ×2 (08:54→20:28)
--- NOTE | 2018-08-20 10:46 | PCM.PROG ---
Attending Provider: ATTENDING PROVIDER: Dr. ELSA NASCIMENTO DATE OF SERVICE: 08/20/18 SUBJECTIVE: This 88 year old WHITE/ F was hospitalized 08/18/18 with hypertensive urgency. The patient is feeling a lot better. Systolic blood pressure is close to 170 off Cardene drip. REVIEW OF SYSTEMS: CONSTITUTIONAL: No night sweats. No fatigue, malaise, lethargy. No fever or chills. HEENT: Eyes: No visual changes. No eye pain. No eye discharge. ENT: No runny nose. No epistaxis. No sinus pain. No odynophagia. No congestion. RESPIRATORY: No cough, no congestion. No hemoptysis. No shortness of breath. CARDIOVASCULAR: No angina symptoms. No CHF symptoms. No atypical chest pain for CAD. No palpitations. No orthopnea.. GASTROINTESTINAL: No abdominal pain. No nausea or vomiting. No diarrhea or constipation. No hematemesis. No hematochezia. GENITOURINARY: No urgency. No frequency. No dysuria. No hematuria. No obstructive symptoms. No discharge. No pain. No significant abnormal bleeding. MUSCULOSKELETAL: No musculoskeletal pain; no joint swelling. NEUROLOGICAL: Awake, alert, oriented to time, place and person. No headache. No neck pain. No syncope. No seizures. No dizziness. PSYCHIATRIC: Not anxious. No depression. No suicidal thoughts. No homicidal thoughts. SKIN: No rash. No lesions. No wounds. ENDOCRINE: No unexplained weight loss. No weight gain. HEMATOLOGIC/LYMPHATIC: No anemia. No purpura. No petechiae. No prolonged or excessive bleeding. No palpable lymph nodes. PHYSICAL EXAMINATION: GENERAL: The patient is awake, alert and oriented, sitting in chair in no distress. VITAL SIGNS: Temperature 97.7 F, Pulse 53, Respiratory Rate 18, BP 165/68, Pulse Ox 95% HEENT: Head normocephalic, atraumatic. Eyes: Extraocular muscles are intact. Pupils are equal, round and reactive to light and accommodation. Ears: No lesions. Nose appeared normal. Throat: No exudate or erythema. NECK: Supple. No JVD, no carotid bruit. No lymphadenopathy or thyromegaly. LUNGS: Clear to auscultation. Percussion note normal. Chest symmetrical. HEART: S1, S2, no S3. No murmurs. No cyanosis or clubbing. No ascites. Pulses: Dorsalis pedis and posterior tibial pulses +1 to +2 both sides. ABDOMEN: Soft. Non-tender. Bowel sounds active. No CVA tenderness. No mass felt. EXTREMITIES: No edema. Full range of motion of all extremities, equal. NEUROLOGIC: No focal deficit. Cranial nerves II through XII are grossly intact. No headache, no double vision or headache. SKIN: Warm and dry. Intact. Turgor-normal. LYMPHATIC: No palpable lymph nodes/no lymphedema. MUSCULOSKELETAL: Normal joints with no swelling. Muscle tone is normal. LAB REVIEW: 08/20/18 05:00 08/20/18 05:36 08/20/18 05:36: Sodium 138.0, Potassium 4.08, Chloride 103.6, Carbon Dioxide 25.0, Anion Gap 13.48, BUN 18.7 H, Creatinine 0.91, Estimated GFR (MDRD) 59.00, BUN/Creatinine Ratio 20.54, Glucose 109.2 H, Calcium 9.39, Total Bilirubin 1.03 , AST 23.1, ALT 14.9, Alkaline Phosphatase 100.8, Total Protein 7.19, Albumin 3.96, Globulin 3.23, Albumin/Globulin Ratio 1.22 08/20/18 05:00: WBC 7.11, RBC 4.74, Hgb 14.0, Hct 42.3, MCV 89.2, MCH 29.5, MCHC 33.1, RDW Coeff of [place] 12.4, Plt Count 195, Immature Gran % (Auto) 0.3, Neut % (Auto) 55.6, Lymph % (Auto) 27.1, [place] % (Auto) 11.7 H, Eos % (Auto) 4.6 , Baso % (Auto) 0.7, Immature Gran # (Auto) 0.0, Neut # (Auto) 4.0, Lymph # ( Auto) 1.9, [place] # (Auto) 0.8, Eos # (Auto) 0.3, Baso # (Auto) 0.1 ASSESSMENT: 1. Hypertension is better the last couple of days without Cardene. 2. History of CABG, 2001. PLAN: 1. Will add Norvasc 5 mg now and then twice a day. 2. Continue the rest of the medications. 3. Echocardiogram to review LV function. 4. Monitor blood pressure. Plan and coordination of the patient's care discussed in the presence of Free Lance Artist and nurse. CONDITION: Stable. SCRIBED BY: CAN DUMONT Senior Scrum Master scribed while in presence of service performed by Dr. ELSA NASCIMENTO on 08/20/18 ([id number])
[2018-08-20] MEDS: SODIUM CHLORIDE 1,000 ML IV SCH ×2 (11:28→20:54)
[2018-08-20] MEDS ORDERED: VASOTEC IV IVP STA ×2 (16:35→21:12)
[2018-08-20] MEDS ORDERED: VASOTEC IV ONE ×2 (16:36→21:26)
[2018-08-20] MEDS: MEVACOR PO SCH (20:28)
[2018-08-20] MEDS: ASPIRIN EC PO SCH (20:28)
[2018-08-20] MEDS ORDERED: MINOXIDIL PO STA (21:13)
[2018-08-20] MEDS ORDERED: MINOXIDIL ONE (21:26)
[2018-08-20] MEDS ORDERED: VASOTEC IV IVP PRN (22:36)
[2018-08-21] MEDS: CARDENE-NACL 20 MG/200 ML SOLN 20 MG in PREMIX 200ML 0.86% SODIUM CHLORIDE 1 BAG IV SCH ×4 (03:12→12:36)
[2018-08-21] MEDS: TOPROL XL PO SCH (09:19)
[2018-08-21] MEDS: CALCIUM 500 + VIT D 200 MG TABLET PO SCH (09:19)
[2018-08-21] MEDS: CATAPRES PO SCH (09:19)
[2018-08-21] MEDS: NORVASC PO SCH ×2 (09:19→20:14)
[2018-08-21] MEDS ORDERED: COZAAR ONE (12:28)
[2018-08-21] MEDS ORDERED: COREG ONE (12:28)
[2018-08-21] MEDS ORDERED: MINOXIDIL ONE (12:28)
[2018-08-21] MEDS: COREG PO SCH ×2 (12:29→18:15)
[2018-08-21] MEDS: MINOXIDIL PO SCH (12:29)
[2018-08-21] MEDS: COZAAR PO SCH (12:29)
[2018-08-21] MEDS: SODIUM CHLORIDE 1,000 ML IV SCH ×2 (12:30→17:41)
[2018-08-21] MEDS: MEVACOR PO SCH (20:13)
[2018-08-21] MEDS: ASPIRIN EC PO SCH (20:14)
[2018-08-22] MEDS: COREG PO SCH ×2 (08:44→16:35)
[2018-08-22] MEDS: CATAPRES PO SCH (08:44)
[2018-08-22] MEDS: CALCIUM 500 + VIT D 200 MG TABLET PO SCH (08:44)
[2018-08-22] MEDS: COZAAR PO SCH (08:44)
[2018-08-22] MEDS: MINOXIDIL PO SCH (08:44)
[2018-08-22] MEDS: NORVASC PO SCH ×2 (08:44→20:52)
[2018-08-22] MEDS: MEVACOR PO SCH (20:53)
[2018-08-22] MEDS: ASPIRIN EC PO SCH (20:53)
[2018-08-22] MEDS: SODIUM CHLORIDE 1,000 ML IV SCH (23:54)
--- NOTE | 2018-08-23 08:05 | HP ---
DATE OF SERVICE: 08/18/18 REASON FOR HOSPITALIZATION: Severe hypertension. HISTORY OF PRESENT ILLNESS: 88-year-old white female who walked into the office. The patient's blood pressure was 170 systolic. Later on it was checked and kept on climbing. The patient's blood pressure systolic after one hour recording four times, the highest was noted to be 220. She was advised to go to the emergency room and her blood pressure was noted to be 250. The workup was practically negative in the way of labs and the cardiac markers. 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 REVIEW OF SYSTEMS: CONSTITUTIONAL: No night sweats. No fatigue, malaise, lethargy. No fever or chills. HEENT: Eyes: No visual changes. No eye pain. No eye discharge. ENT: No runny nose. No epistaxis. No sinus pain. No sore throat. No odynophagia. No ear pain. No congestion. RESPIRATORY: No cough, no congestion. No hemoptysis. No shortness of breath. CARDIOVASCULAR: No angina symptoms. No CHF symptoms. No atypical chest pain for CAD. No palpitations. No PND. No orthopnea. GASTROINTESTINAL: No abdominal pain. No nausea or vomiting. No diarrhea or constipation. No hematemesis. No hematochezia. GENITOURINARY: No urgency. No frequency. No dysuria. No hematuria. No obstructive symptoms. No discharge. No pain. No significant abnormal bleeding. MUSCULOSKELETAL: Generalized aches and pains consistent with arthritis. NEUROLOGICAL: No headache. No neck pain. No syncope. No seizures. No dizziness. PSYCHIATRIC: Not anxious. No depression. No suicidal thoughts. No homicidal thoughts. SKIN: No rash. No lesions. No wounds. ENDOCRINE: No unexplained weight loss. No weight gain. HEMATOLOGIC/LYMPHATIC: No anemia. No purpura. No petechiae. No prolonged or excessive bleeding. No palpable lymph nodes. PERSONAL/FAMILY/SOCIAL HISTORY: The patient lives by herself, does all activity of daily living. She drives. She is intelligent. She nonsmoker. No alcohol abuse. MEDICATIONS: (HOME) Aspirin 81 mg p.o. bedtime Lovastatin 40 mg p.o. bedtime Clonidine 0.1 mg p.o. b.i.d. Calcium Carbonate/Vitamin D3 one tab p.o. daily Furosemide 40 mg p.o. q.d. a.c. p.r.n. Lisinopril (Zestril) 20 mg p.o. b.i.d. Metoprolol (Toprol XL) 25 mg p.o. b.i.d. Potassium Chloride (K-Dur) 20 mEq p.o. once p.r.n. ALLERGIES: CEPHALEXIN MONOHYDRATE, PRAVASTATIN PHYSICAL EXAMINATION: GENERAL: The patient is oriented to time, place and person. VITAL SIGNS: Temperature 98.4, pulse 70/min, BP 250 systolic in the emergency room. Oxygen saturation 94%. Height: 5'5"; Weight 166 lbs. BMI 28. HEENT: Head normocephalic, atraumatic. Eyes: Extraocular muscles are intact. Pupils are equal, round and reactive to light and accommodation. Ears: No lesions. Nose appeared normal. Throat: No exudate or erythema. NECK: Supple. No JVD, no carotid bruit. No lymphadenopathy or thyromegaly. LUNGS: Decreased breath sounds. Clear to auscultation. Percussion note normal. Chest symmetrical. HEART: S1, S2, no S3, questionable S4. No cyanosis or clubbing. No ascites. Pulses: Dorsalis pedis and posterior tibial pulses +2 bilaterally. ABDOMEN: Soft. Nontender. Bowel sounds active. No CVA tenderness. No mass felt. EXTREMITIES: No pedal edema. Full range of motion of all extremities, equal. NEUROLOGIC: Mental status normal. No focal deficit. Cranial nerves II through XII are grossly intact. No headache, no double vision or headache. SKIN: Not dry. Intact. Turgor - normal. LYMPHATIC: No palpable lymph nodes/no lymphedema. MUSCULOSKELETAL: Normal joints with no swelling. Muscle tone is normal. ASSESSMENT: 1. SEVERE HYPERTENSION. 2. 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 3. DYSLIPIDEMIA. 4. HISTORY OF LEG EDEMA. 5. VITAMIN B12 DEFICIENCY. 6. RIGHT HIP REPLACEMENT. 7. GENERAL OSTEOARTHRITIS. 8. LEFT SCIATICA. 9. HYPERTENSION. 10. LVH. 11. DYSLIPIDEMIA. 12. OSTEOARTHRITIS OF THE KNEES. PLAN: 1. The patient was put on Cardene drip. The patient's blood pressure has been brought to 181/70 systolic. 2. Will continue all the medications 3. Will change some of the medications. 4. Will change Zestril, will discontinue and put her on Hyzaar 100/12.5. 5. Will continue the rest of the medications, Clonidine on a small dose, will be continued for awhile. 6. The patient will be on telemetry. 7. Daily CBC and CMP. 8. Also will do echo to evaluate LV function. CONDITION: Stable. TIME SPENT: More than 70 minutes. MTDD
[2018-08-23] MEDS: COREG PO SCH (08:44)
[2018-08-23] MEDS: MINOXIDIL PO SCH (08:47)
[2018-08-23] MEDS: CALCIUM 500 + VIT D 200 MG TABLET PO SCH (08:47)
[2018-08-23] MEDS: COZAAR PO SCH (08:48)
[2018-08-23] MEDS: NORVASC PO SCH (08:48)
[2018-08-23] MEDS: CATAPRES PO SCH (08:48)
[2018-08-23 10:27] VITALS: BP 119/48; TEMP 98
--- NOTE | 2018-08-23 10:28 | PCM.PROG ---
Attending Provider: ATTENDING PROVIDER: Dr. ELSA NASCIMENTO This patient is seen with Danay Valadez, Nurse Practitioner. DATE OF SERVICE: 08/23/18 SUBJECTIVE: This 88 year old WHITE/ F was hospitalized 08/18/18. The patient is resting comfortably. No shortness of breath. Blood pressure is control. She is scheduled for renal Doppler today. REVIEW OF SYSTEMS: CONSTITUTIONAL: No night sweats. No fatigue, malaise, lethargy. No fever or chills. HEENT: Eyes: No visual changes. No eye pain. No eye discharge. ENT: No runny nose. No epistaxis. No sinus pain. No odynophagia. No congestion. RESPIRATORY: No cough, no congestion. No hemoptysis. No shortness of breath. CARDIOVASCULAR: No angina symptoms. No CHF symptoms. No atypical chest pain for CAD. No palpitations. No orthopnea.. GASTROINTESTINAL: No abdominal pain. No nausea or vomiting. No diarrhea or constipation. No hematemesis. No hematochezia. GENITOURINARY: No urgency. No frequency. No dysuria. No hematuria. No obstructive symptoms. No discharge. No pain. No significant abnormal bleeding. MUSCULOSKELETAL: No musculoskeletal pain; no joint swelling. NEUROLOGICAL: Awake, alert, oriented to time, place and person. No headache. No neck pain. No syncope. No seizures. No dizziness. PSYCHIATRIC: Not anxious. No depression. No suicidal thoughts. No homicidal thoughts. SKIN: No rash. No lesions. No wounds. ENDOCRINE: No unexplained weight loss. No weight gain. HEMATOLOGIC/LYMPHATIC: No anemia. No purpura. No petechiae. No prolonged or excessive bleeding. No palpable lymph nodes. PHYSICAL EXAMINATION: GENERAL: The patient is awake, alert and oriented, sitting in bed in no distress. VITAL SIGNS: Temperature 98.4 F, Pulse 64, Respiratory Rate 16, BP 123/45, Pulse Ox 93% HEENT: Head normocephalic, atraumatic. Eyes: Extraocular muscles are intact. Pupils are equal, round and reactive to light and accommodation. Ears: No lesions. Nose appeared normal. Throat: No exudate or erythema. NECK: Supple. No JVD, no carotid bruit. No lymphadenopathy or thyromegaly. LUNGS: Clear to auscultation. Percussion note normal. Chest symmetrical. HEART: S1, S2, no S3. No murmurs. No cyanosis or clubbing. No ascites. Pulses: Dorsalis pedis and posterior tibial pulses +1 to +2 both sides. ABDOMEN: Soft. Non-tender. Bowel sounds active. No CVA tenderness. No mass felt. EXTREMITIES: No edema. Full range of motion of all extremities, equal. NEUROLOGIC: No focal deficit. Cranial nerves II through XII are grossly intact. No headache, no double vision or headache. SKIN: Not dry. Intact. Turgor-normal. LYMPHATIC: No palpable lymph nodes/no lymphedema. MUSCULOSKELETAL: Normal joints with no swelling. Muscle tone is normal. LAB REVIEW: 08/23/18 04:42 08/23/18 04:42 08/23/18 04:42: Sodium 137.5, Potassium 4.01, Chloride 104.3, Carbon Dioxide 25.6, Anion Gap 11.61, BUN 22.1 H, Creatinine 0.86, Estimated GFR (MDRD) 63.00, BUN/Creatinine Ratio 25.69, Glucose 120.9 H, Calcium 8.78, Total Bilirubin 0.42 , AST 17.7, ALT 14.2, Alkaline Phosphatase 83.2, Total Protein 6.41, Albumin 3.35 L, Globulin 3.06, Albumin/Globulin Ratio 1.09 08/23/18 04:42: WBC 6.52, RBC 4.34, Hgb 12.9, Hct 38.6, MCV 88.9, MCH 29.7, MCHC 33.4, RDW Coeff of Norris 12.4, Plt Count 185, Immature Gran % (Auto) 0.2, Neut % (Auto) 50.2, Lymph % (Auto) 29.8, [place] % (Auto) 13.8 H, Eos % (Auto) 5.1 , Baso % (Auto) 0.9, Immature Gran # (Auto) 0.0, Neut # (Auto) 3.3, Lymph # ( Auto) 1.9, [place] # (Auto) 0.9, Eos # (Auto) 0.3, Baso # (Auto) 0.1 ASSESSMENT: Please see below. 1. Hypertensive emergency, controlled. 2. Chronic leg edema 3. Dyslipidemia PLAN: 1. Chest x-ray 2. Renal Doppler today 3. Continue all home medications. 4. Anticipate discharge home today. Plan and coordination of the patient's care discussed in the presence of Respiratory Therapy Instructor and nurse. SCRIBED BY: ROXANNE THOMPSON [employer] Draftsperson scribed while in presence of service performed by Dr. Nascimento/Danay Valadez APRN on 08/23/18 ([id number])
--- NOTE | 2018-08-23 11:31 | ECHO2D ---
Date of Exam: 08/21/18 Ordering Physician: DR. ELSA NASCIMENTO Room #: SCU 1 Reason for Echo: CABG, LV FUNCTION AND EVALUATION, HTN, DYSLIPIDEMIA, CHEST PAIN M-Mode Normal Adult Results LV Dimensions Normal Adult Results AoV Opening excursions >1.6 >1.6 LVEDD-base- 3.5-5.8 5.3 Ao root dimensions 2.0-3.7 2.9 LVESD-base- 3.1-4.6 L. Atrium dimensions 1.9-3.8 4.0 Post. Wall thickness 0.8-1.1 1.1 IV septum (thickness) 0.7-1.2 1.2 Post. Wall excursion 0.72-1.3 NORMAL Septal motion NORMAL Systolic motion R. Ventricular cavity 1.5-2.0 NORMAL LVEF 60% 64% Paradoxical septal wall motion NORMAL 2-D : 2-D M Mode Echocardiogram was performed using apical four chamber and left parasternal long and short axis views. Mitral, tricuspid and aortic valves appear to be normal. Contractility of the left ventricle seems to be normal, so is the cavity size. Left atrial cavity size and aortic root appear to be normal. There is no pericardial effusion. There is no thrombus noted in the left ventricular or left aortic cavity. No mitral valve prolapse noted. M-MODE: MV: CALCIFIC MITRAL VALVE ANNULUS AV: NORMAL TV: NORMAL PV: CHAMBER SIZE: NORMAL WALL MOTION: NORMAL PERICARDIUM: NORMAL INTERPRETATION: 1. LEFT VENTRICULAR HYPERTROPHY WITH BORDERLINE LEFT ATRIAL CAVITY 2. NORMAL VALVES 3. NORMAL LEFT VENTRICULAR CONTRACTILITY 4. CALCIFIC MITRAL VALVE ANNULUS MTDD
--- NOTE | 2018-08-23 13:47 | DI ---
Exam: Two views of the chest. Comparison: 01/22/2017. Reason for exam: Hypertension. FINDINGS: No pneumothorax, pleural effusion, or focal consolidation. The cardiac silhouette is not enlarged. The imaged osseous structures appear grossly unremarkable without acute fracture. Impression: No acute cardiopulmonary process
--- NOTE | 2018-08-23 14:03 | CM.DICTOOL ---
ADMISSION: 08/18/18 13:46 DISCHARGE: AUGUST 23, 2018 DATE OF SERVICE: 08/23/18 FINAL DIAGNOSIS HYPERTENSIVE URGENCY CAD LVH DYSLIPIDEMIA OSTEOARTHRITIS; KNEES, SHOULDERS, LEFT HIP SCIATICA, LEFT ANXIETY STRESS INCONTINENCE CABG, 2001 APPENDECTOMY - DATE UNKNOWN CHOLECYSTECTOMY - DATE UNKNOWN RIGHT HIP REPLACEMENT, 2017 CATARACTS BILATERALLY LAST VITALS Temp Pulse Resp BP Pulse Ox 98.0 F 61 18 119/48 L 98 08/23/18 10:00 08/23/18 10:00 08/23/18 10:00 08/23/18 10:00 08/23/18 10:00 TAKE THESE MEDICATIONS AT HOME Amlodipine Besylate (Norvasc) 5 mg PO BID [facility] Last Admin: 08/23/18 08:48 Dose: 5 mg Aspirin (Aspirin Ec) 81 mg PO BEDTIME [facility] Last Admin: 08/22/18 20:53 Dose: 81 mg Calcium/Vitamin D (Calcium 500 + Vit D 200 Mg Tablet) 1 each PO DAILY [facility] Last Admin: 08/23/18 08:47 Dose: 1 each Carvedilol (Coreg) 12.5 mg PO BIDWM [facility] Last Admin: 08/23/18 08:44 Dose: 12.5 mg Clonidine (Catapres) 0.1 mg PO DAILY [facility] Last Admin: 08/23/18 08:48 Dose: 0.1 mg Furosemide (Lasix Tab) 40 mg PO QDAC PRN PRN Reason: Blood Pressure Losartan Potassium (Cozaar) 100 mg PO DAILY [facility] Last Admin: 08/23/18 08:48 Dose: 100 mg Lovastatin (Mevacor) 40 mg PO BEDTIME [facility] Last Admin: 08/22/18 20:53 Dose: 40 mg Minoxidil (Minoxidil) 5 mg PO DAILY [facility] Last Admin: 08/23/18 08:47 Dose: 5 mg ALLERGIES cephalexin monohydrate [From Keflex] Adverse Reaction (Verified 08/18/18 11:15) Rash pravastatin [From Pravachol] Adverse Reaction (Verified 08/18/18 11:15) DISCONTINUED MEDICATIONS ZESTRIL METOPROLOL SUCCINATE (TOPROL XL) NEW PRESCRIPTIONS: MINOXIDIL 5 MG DAILY COZAAR 100 MG DAILY NORVASC 5 MG BID COREG 12.5 MG BID SMOKING: NOT APPLICABLE DISEASE SPECIFIC EDUCATION: HYPERTENSION MEDICATION CHANGES ACTIVITY APPOINTMENT LAB REVIEW: 08/23/18 04:42 08/23/18 04:42 08/23/18 04:42: Sodium 137.5, Potassium 4.01, Chloride 104.3, Carbon Dioxide 25.6, Anion Gap 11.61, BUN 22.1 H, Creatinine 0.86, Estimated GFR (MDRD) 63.00, BUN/Creatinine Ratio 25.69, Glucose 120.9 H, Calcium 8.78, Total Bilirubin 0.42 , AST 17.7, ALT 14.2, Alkaline Phosphatase 83.2, Total Protein 6.41, Albumin 3.35 L, Globulin 3.06, Albumin/Globulin Ratio 1.09 08/23/18 04:42: WBC 6.52, RBC 4.34, Hgb 12.9, Hct 38.6, MCV 88.9, MCH 29.7, MCHC 33.4, RDW Coeff of Norris 12.4, Plt Count 185, Immature Gran % (Auto) 0.2, Neut % (Auto) 50.2, Lymph % (Auto) 29.8, [place] % (Auto) 13.8 H, Eos % (Auto) 5.1 , Baso % (Auto) 0.9, Immature Gran # (Auto) 0.0, Neut # (Auto) 3.3, Lymph # ( Auto) 1.9, [place] # (Auto) 0.9, Eos # (Auto) 0.3, Baso # (Auto) 0.1 PLAN: DISCHARGE HOME DIET: REGULAR ACTIVITY: RESUME TOLERATED AN APPOINTMENT IS SCHEDULED WITH LEXIE JULIEN APRN/DR. NASCIMENTO ON Jul AT 10:30 AM CHECK BLOOD PRESSURES 1-2 TIMES DAILY AND KEEP LOG FOR MD OFFICE APPOINTMENT CONTINUE MEDICATIONS LISTED ON NURSING DISCHARGE INFORMATION SHEET CODE STATUS: DNR MS. RIVEOR IS ALERT AND ORIENTED X 3. SHE IS PLEASANT AND COOPERATIVE. SHE TRANSFERS FROM THE BED TO THE CHAIR AND IS AMBULATORY WITHOUT STAFF ASSISTANCE. HER GAIT IS STEADY. MS. RIVERO LIVES ALONE, BUT HER DAUGHTER LIVES CLOSE BY. SHE IS INDEPENDENT WITH ACTIVITIES OF DAILY LIVING. HER APPETITE IS GOOD WITH INTAKES OF 50-100%. SHE IS CONTINENT OF BOWEL AND BLADDER. DME AVAILABLE IN THE HOME: SHOWER BENCH, CANE AND WALKER. COLOR IS GOOD, SKIN IS WARM/DRY. SKIN TURGOR IS GOOD. SKIN IS FREE OF DECUBITUS ULCERS, RASHES OR IRRITATION. MS. RIVERO IS AWARE OF DISCHARGE PLANS FOR TODAY. SHE IS AGREEABLE TO DISCHARGE AND TO OFFICE FOLLOW-UP. ELSA NASCIMENTO MD LEXIE JULIEN APRN
--- NOTE | 2018-08-23 14:06 | US ---
Exam: May-scale and color duplex Doppler ultrasonographic evaluation of the kidneys. Renal arteria l duplex evaluation for renal duplex Doppler. Spectral waveform analysis was performed Comparison: None available. Reason for exam: Renal artery Stenosis FINDINGS: The right kidney measures 9.02 cm in length. Peak systolic velocity at the right renal ostium 0.63 meters per second. RA/AO ratio 0.96 Peak systolic velocity mid right kidney 0.76 meters per second. RA/AO ratio 1.1 Peak systolic velocity right arcuate 0.27 meters per second with a resistive index 0.72 Peak systolic velocity right hilum 0.53 meters per second. RA/AO ratio 0.81 Right renal vein appears patent. Aortic diameter measures 1.22 a centimeters Left kidney measures 10.1 cm. Peak systolic velocity left renal ostium 0.39 meters per second, with an RA/AO ratio 0.6 Peak systolic velocity left mid kidney 0.5 meters per second. RA/AO ratio 0.76 Peak systolic velocity left renal hilum 0.45 meters per second. RA/AO ratio 0.69 Peak systolic velocity left arcuate 0.11 meters per second, resistive index 0.71 Peak systolic velocity at the level of the superior mesenteric artery 0.65 meters per second Impression: No ultrasonographic evidence of significant stenotic disease is seen by peak systolic velocity measur ement
--- NOTE | 2018-08-23 14:52 | US ---
EXAM: Renal ultrasound HISTORY: Renal stenosis COMPARISON: None TECHNIQUE: Renal ultrasound was performed FINDINGS: Right kidney measures 3.1 x 3.7 x 9.0 cm. Left kidney measures 3.8 x 5.0 x 9.5 cm. Renal cortical echogenicity is normal. No hydronephrosis or renal calculus large enough to cause acoustic shadowing. Bladder only minimally distended and poorly evaluated. IMPRESSION: Sonographically normal kidneys.
--- NOTE | 2018-08-24 14:22 | DS ---
DATE OF SERVICE: 08/23/18 FINAL DIAGNOSIS: 1. HYPERTENSIVE URGENCY 2. CAD 3. LVH 4. DYSLIPIDEMIA 5. OSTEOARTHRITIS; KNEES, SHOULDERS, LEFT HIP 6. SCIATICA, LEFT 7. ANXIETY 8. STRESS INCONTINENCE 9. CABG, 2001 10. APPENDECTOMY - DATE UNKNOWN 11. CHOLECYSTECTOMY - DATE UNKNOWN 12. RIGHT HIP REPLACEMENT, 2016 13. CATARACTS BILATERALLY LAST VITALS: Temperature 98.0, pulse 61, respiratory rate 18, BP 119/48, pulse ox 98 DISCHARGE INSTRUCTIONS: 1. Followup appointment: Danay Valadez/CELINA/Dr. Trejo on 08/26/18 at 10:30 a.m. 2. Check blood pressures 1-2 times daily and keep log for M.D office appointment 3. Code Status DNR MEDICATIONS AT DISCHARGE: Norvasc 5 mg p.o. b.i.d. [place] Aspirin 81 mg p.o. bedtime [facility] Calcium/Vitamin D one each p.o. daily [facility] Carvedilol 12.5 mg p.o. b.i.d. with meal [place] Furosemide 40 mg p.o. q. d. a.c. p.r.n. Losartan 100 mg p.o. daily [facility] Mevacor 40 mg p.o. bedtime [facility] Minoxidil 5 mg p.o. daily [facility] DISCONTINUED MEDICATIONS: Zestril Metoprolol Succinate (Toprol XL) NEW PRESCRIPTIONS: Minoxidil 5 mg daily Cozaar 100 mg daily Norvasc 5 mg b.i.d Coreg 12.5 mg b.i.d. DIET INSTRUCTIONS: Regular ACTIVITY: Resume as tolerated SMOKING: N/A DISEASE SPECIFIC EDUCATION: Hypertension Medication Changes Activity Appointment HOSPITAL COURSE: This is an 88-year-old white female who presented to the office with elevated blood pressure 200/140, was admitted from the office. She was placed in the Special Care Unit. Blood pressure has remained elevated throughout her stay. She received IV Vasotec. Her new medication, Lisinopril, was discontinued along with her Metoprolol. She is now on Minoxidil 5 mg daily, Cozaar 100 mg daily, Norvasc 5 mg b.i.d. and Coreg 12.5 mg b.i.d. She had a renal Doppler, results still pending. She had that this morning. Blood pressure has been under control for the past 36 hours. She has been eating well. Labs are normal. This morning blood pressure 119/48, pulse ox 98%, respirations 18, pulse 61, temperature 98. Echo was done which showed normal ejection fraction. No acute abnormality. She has remained alert and oriented. She has been up and about walking around, has tolerated this fine. We will discharge in stable condition and followup with her on this week. TIME SPENT: More than 60 minutes. ELVA
--- NOTE | 2018-08-25 14:47 | PN ---
DATE OF SERVICE: 08/23/18 SUBJECTIVE: The patient was seen and examined with Nurse Practitioner. Her blood pressure is stable. The patient is going to be discharged on changed medication list which was explained to her in detail with Cozaar 100mg one a day along with Minoxidil and Norvasc. CONDITION: Stable CARDIOVASCULAR STATUS: Stable. TIME SPENT: More than 30 minutes. Plan and coordination of the patient's care discussed in the presence of nurse. ELVA
--- NOTE | 2018-08-27 09:02 | PN ---
DATE OF SERVICE: 08/21/18 SUBJECTIVE: The patient's blood pressure fluctuates. Systolic is around 160. REVIEW OF SYSTEMS: CONSTITUTIONAL: No night sweats. No fatigue, malaise, lethargy. No fever or chills. HEENT: Eyes: No visual changes. No eye pain. No eye discharge. ENT: No runny nose. No epistaxis. No sinus pain. No sore throat. No odynophagia. No congestion. RESPIRATORY: No cough, no congestion. No hemoptysis. No shortness of breath. CARDIOVASCULAR: No angina symptoms. No CHF symptoms. No atypical chest pain for CAD. No palpitations. No PND. No orthopnea. GASTROINTESTINAL: No abdominal pain. No nausea or vomiting. No diarrhea or constipation. No hematemesis. No hematochezia. GENITOURINARY: No urgency. No frequency. No dysuria. No hematuria. No obstructive symptoms. No discharge. No pain. No significant abnormal bleeding. MUSCULOSKELETAL: No musculoskeletal pain; no joint swelling. NEUROLOGICAL: No headache. No neck pain. No syncope. No seizures. No dizziness. PSYCHIATRIC: Not anxious. No depression. No suicidal thoughts. No homicidal thoughts. SKIN: No rash. No lesions. No wounds. ENDOCRINE: No unexplained weight loss. No weight gain. HEMATOLOGIC/LYMPHATIC: No anemia. No purpura. No petechiae. No prolonged or excessive bleeding. No palpable lymph nodes. PHYSICAL EXAMINATION: GENERAL: The patient is oriented to time, place and person. HEENT: Head normocephalic, atraumatic. Eyes: Extraocular muscles are intact. Pupils are equal, round and reactive to light and accommodation. Ears: No lesions. Nose appeared normal. Throat: No exudate or erythema. NECK: Supple. No JVD, no carotid bruit. No lymphadenopathy or thyromegaly. LUNGS: Clear to auscultation. Percussion note normal. Chest symmetrical. HEART: S1, S2, no S3. No murmurs. No cyanosis or clubbing. No ascites. Pulses: Dorsalis pedis and posterior tibial pulses +1 to +2 bilaterally. ABDOMEN: Soft. Nontender. Bowel sounds active. No CVA tenderness. No mass felt. EXTREMITIES: No edema. Full range of motion of all extremities, equal. NEUROLOGIC: No focal deficit. Cranial nerves II through XII are grossly intact. No headache, no double vision or headache. SKIN: Not dry. Intact. Turgor - normal. LYMPHATIC: No palpable lymph nodes/no lymphedema. MUSCULOSKELETAL: Normal joints with no swelling. Muscle tone is normal. ASSESSMENT: 1. SEVERE HYPERTENSION 2. CORONARY ARTERY BYPASS SURGERY 3. DYSLIPIDEMIA 4. HISTORY OF HYPERTENSION PLAN: 1. Echo which was done and showed borderline left ventricular hypertrophy with borderline enlargement of the left atrium with normal LV contractility. 2. Minoxidil 5 mg twice a day. 3. Cozaar 100 mg p.o. q.a.m. 4. Continue Clonidine but only morning 0.1 mg (d/c evening dose). 5. Norvasc 5 mg twice a day. 6. Thursday will do renal flow study to rule out renal artery stenosis. CONDITION: Stable TIME SPENT: More than 30 minutes. Plan and coordination of the patient's care discussed in the presence of nurse. ELVA
--- NOTE | 2018-08-27 09:08 | PN ---
DATE OF SERVICE: 08/22/18 SUBJECTIVE: 88-year-old white male hospitalized with hypertensive urgency with systolic blood pressure more than 250 recorded in the emergency room, 220 was recorded in the office. The patient's condition is stable. REVIEW OF SYSTEMS: CONSTITUTIONAL: No night sweats. No fatigue, malaise, lethargy. No fever or chills. HEENT: Eyes: No visual changes. No eye pain. No eye discharge. ENT: No runny nose. No epistaxis. No sinus pain. No sore throat. No odynophagia. No congestion. RESPIRATORY: No cough, no congestion. No hemoptysis. No shortness of breath. CARDIOVASCULAR: No angina symptoms. No CHF symptoms. No atypical chest pain for CAD. No palpitations. No PND. No orthopnea. GASTROINTESTINAL: No abdominal pain. No nausea or vomiting. No diarrhea or constipation. No hematemesis. No hematochezia. GENITOURINARY: No urgency. No frequency. No dysuria. No hematuria. No obstructive symptoms. No discharge. No pain. No significant abnormal bleeding. MUSCULOSKELETAL: No musculoskeletal pain; no joint swelling. NEUROLOGICAL: No headache. No neck pain. No syncope. No seizures. No dizziness. PSYCHIATRIC: Not anxious. No depression. No suicidal thoughts. No homicidal thoughts. SKIN: No rash. No lesions. No wounds. ENDOCRINE: No unexplained weight loss. No weight gain. HEMATOLOGIC/LYMPHATIC: No anemia. No purpura. No petechiae. No prolonged or excessive bleeding. No palpable lymph nodes. PHYSICAL EXAMINATION: GENERAL: The patient is oriented to time, place and person. HEENT: Head normocephalic, atraumatic. Eyes: Extraocular muscles are intact. Pupils are equal, round and reactive to light and accommodation. Ears: No lesions. Nose appeared normal. Throat: No exudate or erythema. NECK: Supple. No JVD, no carotid bruit. No lymphadenopathy or thyromegaly. LUNGS: Clear to auscultation. Percussion note normal. Chest symmetrical. HEART: S1, S2, no S3. No murmurs. No cyanosis or clubbing. No ascites. Pulses: Dorsalis pedis and posterior tibial pulses +1 to +2 bilaterally. ABDOMEN: Soft. Nontender. Bowel sounds active. No CVA tenderness. No mass felt. EXTREMITIES: No edema. Full range of motion of all extremities, equal. NEUROLOGIC: No focal deficit. Cranial nerves II through XII are grossly intact. No headache, no double vision or headache. SKIN: Not dry. Intact. Turgor - normal. LYMPHATIC: No palpable lymph nodes/no lymphedema. MUSCULOSKELETAL: Normal joints with no swelling. Muscle tone is normal. LABS: Blood gases - oxygen saturation more than 96%. Appetite is good. ASSESSMENT: 1. Hypertension seems to be coming under control, barely stable for the past 12 hours. The patient is on Cozaar, Norvasc, Minoxidil. Clonidine has been reduced to 0.1. Condition improving. 2. Echo was done to evaluate LV function. The patient's LV function is almost normal with normal valvular structures, borderline LVH with borderline LA cavity enlargement. Condition improving. TIME SPENT: More than 30 minutes. Plan and coordination of the patient's care discussed in the presence of nurse. ELVA
== END 2018-08-23 14:50 | disposition home or self-care (01) | DRG 293 ==
LOC: ED 11:10 → SCU 13:46
PROVIDERS: ADMIT Internal Medicine; ATTEND Internal Medicine
DX: I50.1 Left ventricular failure, unspecified (principal); I25.10 Atherosclerotic heart disease of native coronary artery without angina pectoris; E78.5 Hyperlipidemia, unspecified; F41.9 Anxiety disorder, unspecified; M54.32 Sciatica, left side; E53.8 Deficiency of other specified B group vitamins; M15.9 Polyosteoarthritis, unspecified; R60.0 Localized edema
CPT/HCPCS: 36415; 80053; 81001; 82550; 84484; 85025; 87081; 93005; 93010; 96365; 96366; 99223; 99232; 99239; 99284

== ENCOUNTER 2018-12-20 09:31 | Inpatient (IN) ==
[2018-12-20] MEDS ORDERED: MINOXIDIL PO STA (11:27)
[2018-12-20] MEDS ORDERED: CARDENE-NACL 20 MG/200 ML SOLN 20 MG in PREMIX 200ML 0.86% SODIUM CHLORIDE 1 BAG IV SCH (11:30)
--- NOTE | 2018-12-20 11:34 | ED.PDOC ---
General ED Provider: Dr. JESSICA SCHREIBER Chief Complaint: Hypertension Stated Complaint: hypertension Time Seen by Physician: 09:33 (seen with november) Mode of Arrival: Walk-In Information Source: Patient, Family Exam Limitations: No limitations Primary Care Provider: ELSA NASCIMENTO Nursing and Triage Documentation Reviewed and Agree: Yes Does patient meet sepsis criteria?: No If yes, has appropriate treatment been initiated?: No System Inflammatory Response Syndrome: Not Applicable Sepsis Protocol: For patient's 13 years and over: Temp is 96.8 and below OR 101 and greater Pulse >90 BPM Resp >20/minute Acutely Altered Mental Status Are patient's symptoms suggestive of a new infection, such as: -Pneumonia -Skin, Soft Tissue -Endocarditis -UTI -Bone, Joint Infection -Implantable Device -Acute Abdominal Infection -Wound Infection -Meningitis -Blood Stream Catheter Infection -Unknown Cardiovascular Complaint Exam - Hypertension Complaint/Exam Onset/Duration: today Symptoms Are: Still present Timing: Constant Reported B/P Prior to Arrival: 200 systolic Aggravating: Reports: None Alleviating: Reports: None Associated Signs and Symptoms: Denies: Chest pain, Vision changes, Anxiety, Recent stress, Headache, Numbness, Tingling, Weakness, Dizziness, Short of air, Swelling Related History: Reports: Similar episode Related Surgical History: Reports: None Cardiac Risk Factors: Reports: Hypertension, Elevated lipids Recent Change in Medications: No A/V [place]: No Papilledema Present: No JVD Present: No Carotid Bruit Present: No Femoral Pulses Bounding: No Differential Diagnoses: Hypertensive Urgency Quality Indicator For Non-Traumatic Chest Pain/Syncope: EKG Performed Review of Systems - Review Of Systems Constitutional: Reports: No symptoms Eyes: Reports: No symptoms Ears, Nose, Mouth, Throat: Reports: No symptoms Respiratory: Reports: No symptoms Cardiac: Reports: No symptoms GI: Reports: No symptoms : Reports: No symptoms Musculoskeletal: Reports: No symptoms Skin: Reports: No symptoms Neurological: Reports: No symptoms Endocrine: Reports: No symptoms Hematologic/Lymphatic: Reports: No symptoms All Other Systems: Reviewed and Negative Past Medical History - Past Medical History Previously Healthy: No Endocrine: Reports: Dyslipidemia Cardiovascular: Reports: Hypertension Respiratory: Reports: None Hematological: Reports: None Gastrointestinal: Reports: None Genitourinary: Reports: None Neuro/Psych: Reports: None Musculoskeletal: Reports: Arthritis, Back Pain Cancer: Reports: None Last Menstrual Period: na - Surgical History General Surgical History: Reports: Appendectomy, Cholecystectomy, CABG - Family History Family History: Reports: None - Social History Smoking Status: Never smoker Hx Substance Use: No Alcohol Screening: None - Immunizations Tetanus Shot up to Date: No Physical Exam - Physical Exam Appearance: Well-appearing, No pain distress, Well-nourished Eyes: JAYCEE, EOMI, Conjunctiva clear ENT: Ears normal, Nose normal, Oropharynx normal Respiratory: Airway patent, Breath sounds clear, Breath sounds equal, Respirations nonlabored Cardiovascular: RRR, Pulses normal, No rub, No murmur GI/: Soft, Nontender, No masses, Bowel sounds normal, No Organomegaly Musculoskeletal: Normal strength, ROM intact, No edema, No calf tenderness Skin: Warm, Dry, Normal color Neurological: Sensation intact, Motor intact, Reflexes intact, Cranial nerves intact, Alert, Oriented Psychiatric: Affect appropriate, Mood appropriate Interpretation - Mechanical Engineering Manager Rate: Aristides Rhythm: Sinus - EKG Interpretation Rate: Aristides Rhythm: Sinus Ectopy: None [place]: NL ST Segment: Normal Re-Evaluation - Re-Evaluation Time of Re-Evaluation: 11:00 Status: Unchanged Vital Signs Stable: Yes Pain Level: 0 Appearance: NAD Lungs: Clear Skin: Warm and Dry Neuro: Alert and Oriented X3 CV: RRR - Re-Evaluation Time of Re-Evaluation: 11:34 Status: Unchanged Physician Notification - Case Discussed Physician Notified: pmd Time of Notification: 11:34 (admitt start [place]) Admit/Transition Orders Entered by ED Provider: Yes Admit To: Inpatient Critical Care Note - Critical Care Note Total Time (mins): 0 Course - Course Hematology/Chemistry: 12/20/18 10:25 12/20/18 10:25 Orders, Labs, Meds: Lab Review 12/20/18 12/20/18 12/20/18 10:25 10:25 11:05 WBC 5.15 RBC 4.09 L Hgb 12.4 Hct 37.3 MCV 91.2 MCH 30.3 MCHC 33.2 RDW Coeff of Norris 13.5 Plt Count 159 Immature Gran % (Auto) 0.2 Neut % (Auto) 57.3 Lymph % (Auto) 28.7 [place] % (Auto) 10.1 H Eos % (Auto) 2.9 Baso % (Auto) 0.8 Immature Gran # (Auto) 0.0 Neut # (Auto) 3.0 Lymph # (Auto) 1.5 [place] # (Auto) 0.5 Eos # (Auto) 0.2 Baso # (Auto) 0.0 Sodium 139.7 Potassium 4.01 Chloride 106.7 Carbon Dioxide 24.7 Anion Gap 12.31 BUN 19.9 H Creatinine 1.03 Estimated GFR (MDRD) 51.00 BUN/Creatinine Ratio 19.32 Glucose 111.1 H Calcium 9.67 Total Bilirubin 0.88 AST 19.9 ALT 13.1 Alkaline Phosphatase 74.5 Total Protein 6.88 Albumin 4.31 Globulin 2.57 Albumin/Globulin Ratio 1.67 Urine Color Yellow Urine Clarity Clear Urine pH 7.0 Ur Specific [place] 1.010 Urine Protein Negative Urine Glucose (UA) Negative Urine Ketones Negative Urine Blood 1+ Urine Nitrite Negative Urine Bilirubin Negative Urine Urobilinogen 0.2 Ur Leukocyte Esterase 1+ Urine Microscopic RBC 2-5 Urine Microscopic WBC 10-20 Ur Squamous Epith Cells 0-2 Ur Transition Epith Cell 2-5 Urine Bacteria 1+ Orders Category Date Time Status EKG-(ED ONLY) Stat CARDIO 12/20/18 10:05 Completed EKG-(IP & OP ONLY) DAILY CARDIO 12/21/18 06:00 Ordered EKG-(IP & OP ONLY) DAILY CARDIO 12/22/18 06:00 Ordered EKG-(IP & OP ONLY) DAILY CARDIO 12/23/18 06:00 Ordered BLOOD GLUCOSE MONITORING ACCUCHECK Q6H CARE 12/20/18 11:28 Ordered INTAKE & OUTPUT Q8HR CARE 12/20/18 11:28 Ordered Neuro Check [NEUROLOGICAL CHECKS] Q4HR CARE 12/20/18 11:30 Ordered VITAL SIGNS Q4HR CARE 12/20/18 11:28 Ordered REGULAR DIET DIETARY 12/20/18 Lunch Ordered CBC W/ AUTO DIFF DAILY@0600 LAB 12/21/18 06:00 Ordered CBC W/ AUTO DIFF DAILY@0600 LAB 12/22/18 06:00 Ordered CBC W/ AUTO DIFF Stat LAB 12/20/18 10:25 Completed COMPREHENSIVE METABOLIC PANEL DAILY@0600 LAB 12/21/18 06:00 Ordered COMPREHENSIVE METABOLIC PANEL DAILY@0600 LAB 12/22/18 06:00 Ordered COMPREHENSIVE METABOLIC PANEL Stat LAB 12/20/18 10:25 Completed CREATINE KINASE Q8H LAB 12/20/18 17:30 Ordered CREATINE KINASE Q8H LAB 12/21/18 01:30 Ordered URINALYSIS C & S IF INDICATED Stat LAB 12/20/18 11:05 Results URINE CULTURE Stat LAB 12/20/18 11:28 Received Aspirin [Aspirin EC] MEDS 12/20/18 21:00 Ordered 81 mg PO BEDTIME Carvedilol [Coreg] MEDS 12/20/18 17:30 Ordered 12.5 mg PO BIDWM Clonidine HCl [Catapres] MEDS 12/21/18 09:00 Ordered 0.1 mg PO DAILY Losartan Potassium [Cozaar] MEDS 12/21/18 09:00 Ordered 100 mg PO DAILY Lovastatin [Lovastatin] MEDS 12/20/18 21:00 Ordered 40 mg PO BEDTIME Minoxidil MEDS 12/20/18 11:27 Discontinued 2.5 mg PO ONCE STA [id number] MG in 0.86% SODIUM CHLORIDE @ 5 MG/HR( MEDS 12/20/18 11:30 Ordered 200ml) 0.9 % Sodium Chloride [Premix 200Ml 0.86% Sodium Chloride] 1 bag Nicardipine in NaCl, Iso-Osm [Cardene-NaCl 20 mg/200 ml Soln] 20 mg IV 5 mg/hr Sodium Chloride 0.9% [Sodium Chloride] 1,000 ml MEDS 12/20/18 11:30 Ordered IV 75 mls/hr Medications Generic Name Dose Route Start Last Admin Trade Name Freq PRN Reason Stop Dose Admin Aspirin 81 mg 12/20/18 21:00 Aspirin Ec PO BEDTIME BRAYDEN Carvedilol 12.5 mg 12/20/18 17:30 Coreg PO BIDWM BRAYDEN Clonidine 0.1 mg 12/21/18 09:00 Catapres PO DAILY BRAYDEN Sodium Chloride 1,000 mls @ 75 mls/hr 12/20/18 11:30 Sodium Chloride IV .[id number] BRAYDEN Nicardipine/Sodium Chloride 20 200 mls @ 50 mls/hr 12/20/18 11:30 mg/ Sodium Chloride IV .Q4H BRAYDEN Protocol 5 MG/HR Losartan Potassium 100 mg 12/21/18 09:00 Cozaar PO DAILY BRAYDEN Non-Formulary Medication 40 mg 12/20/18 21:00 Lovastatin [Lovastatin] PO BEDTIME BRAYDEN Discontinued Medications Generic Name Dose Route Start Last Admin Trade Name Freq PRN Reason Stop Dose Admin Minoxidil 2.5 mg 12/20/18 11:27 Minoxidil PO 12/20/18 11:28 ONCE STA Vital Signs: Temp Pulse Resp BP Pulse Ox 12/20/18 11:11 55 L 16 214/84 H 12/20/18 10:00 67 16 197/98 H 12/20/18 09:31 98.6 F 62 18 216/91 H 94 L ELIGIO Risk Score ELIGIO Risk Score: Risk Score Odds of by 30D 0 0.1 (0.1-0.2) 1 0.3 (0.2-0.3) 2 0.4 (0.3-0.5) 3 0.7 (0.6-0.9) 4 1.2 (1.0-1.5) 5 2.2 (1.9-2.6) 6 3.0 (2.5-3.6) 7 4.8 (3.8-6.1) Departure - Departure Time of Disposition: 11:35 Disposition: ADMITTED INPATIENT Discharge Problem: Hypertension Instructions: Hypertension (ED) Condition: Good Pt referred to PMD for follow-up: Yes IPMP verified?: No Additional Instructions: Please call your Family Physician as soon as possible to schedule a follow-up appointment. Allergies/Adverse Reactions: Allergies cephalexin monohydrate [From Keflex] Adverse Reaction (Verified 12/20/18 09:46) Rash pravastatin [From Pravachol] Adverse Reaction (Verified 12/20/18 09:46) Home Medications: Ambulatory Orders Aspirin [Aspirin EC] 81 mg PO BEDTIME 06/01/13 Lovastatin 40 mg PO BEDTIME 06/01/13 Clonidine HCl [Catapres] 0.1 mg PO DAILY 05/12/15 Calcium Carbonate/Vitamin D3 [Calcium 500 + D Tablet] 1 tab PO DAILY 06/04/16 Furosemide [Lasix Tab] 40 mg PO QDAC PRN 08/18/18 Potassium Chloride [K-Dur] 20 meq PO ONCE PRN 08/18/18 Carvedilol [Coreg] 12.5 mg PO BIDWM #60 tablet 08/23/18 Losartan Potassium [Cozaar] 100 mg PO DAILY #30 tablet 08/23/18 Minoxidil 5 mg PO DAILY #30 tablet 08/23/18 Biotin 5 mg PO DAILY 12/20/18
[2018-12-20] MEDS ORDERED: VASOTEC IV IVP STA (12:59)
[2018-12-20 13:08] VITALS: BMI 33.3
[2018-12-20] MEDS ORDERED: CARDENE-NACL 20 MG/200 ML SOLN 200 ML IV ONE (13:23)
[2018-12-20] MEDS: SODIUM CHLORIDE 1,000 ML IV SCH (13:38)
[2018-12-20] MEDS: COREG PO SCH (17:03)
[2018-12-20] MEDS ORDERED: NON-FORMULARY MEDICATION (Lovastatin [Lovastatin] 40 MG) PO SCH (21:00)
[2018-12-20] MEDS: MINOXIDIL PO SCH (21:26)
[2018-12-20] MEDS: MEVACOR PO SCH (21:27)
[2018-12-20] MEDS: ASPIRIN EC PO SCH (21:27)
[2018-12-21] MEDS: SODIUM CHLORIDE 1,000 ML IV SCH (03:21)
[2018-12-21] MEDS ORDERED: LASIX IVP STA (09:00)
[2018-12-21] MEDS: COZAAR PO SCH (09:08)
[2018-12-21] MEDS: MINOXIDIL PO SCH ×2 (09:08→21:13)
[2018-12-21] MEDS ORDERED: MINOXIDIL PO STA (09:08)
[2018-12-21] MEDS: COREG PO SCH ×2 (09:09→16:43)
[2018-12-21] MEDS: CATAPRES PO SCH (09:09)
--- NOTE | 2018-12-21 10:46 | PCM.PROG ---
Attending Provider: ATTENDING PROVIDER: Dr. ELSA NASCIMENTO This patient is seen with Danay Valadez, Nurse Practitioner. DATE OF SERVICE: 12/21/18 SUBJECTIVE: This 88 year old WHITE/ F was hospitalized 12/20/18. The patient is sitting in chair resting comfortably. Blood pressure has improved but still elevated. REVIEW OF SYSTEMS: CONSTITUTIONAL: No night sweats. No fatigue, malaise, lethargy. No fever or chills. HEENT: Eyes: No visual changes. No eye pain. No eye discharge. ENT: No runny nose. No epistaxis. No sinus pain. No odynophagia. No congestion. RESPIRATORY: No cough, no congestion. No hemoptysis. Positive for mild shortness of breath. CARDIOVASCULAR: No angina symptoms. No CHF symptoms. No atypical chest pain for CAD. No palpitations. No orthopnea.. GASTROINTESTINAL: No abdominal pain. No nausea or vomiting. No diarrhea or constipation. No hematemesis. No hematochezia. GENITOURINARY: No urgency. No frequency. No dysuria. No hematuria. No obstructive symptoms. No discharge. No pain. No significant abnormal bleeding. MUSCULOSKELETAL: No musculoskeletal pain; no joint swelling. NEUROLOGICAL: Awake, alert, oriented to time, place and person. Positive for headache. No neck pain. No syncope. No seizures. No dizziness. PSYCHIATRIC: Not anxious. No depression. No suicidal thoughts. No homicidal thoughts. SKIN: No rash. No lesions. No wounds. ENDOCRINE: No unexplained weight loss. No weight gain. HEMATOLOGIC/LYMPHATIC: No anemia. No purpura. No petechiae. No prolonged or excessive bleeding. No palpable lymph nodes. PHYSICAL EXAMINATION: GENERAL: The patient is awake, alert and oriented, lying/sitting in bed in no distress. VITAL SIGNS: Temperature 98.1 F, Pulse 65, Respiratory Rate 16, BP 152/59, Pulse Ox 96% HEENT: Head normocephalic, atraumatic. Eyes: Extraocular muscles are intact. Pupils are equal, round and reactive to light and accommodation. Ears: No lesions. Nose appeared normal. Throat: No exudate or erythema. NECK: Supple. No JVD, no carotid bruit. No lymphadenopathy or thyromegaly. LUNGS: Diminished breath sounds. Clear to auscultation. Percussion note normal. Chest symmetrical. HEART: S1, S2, no S3. No murmurs. No cyanosis or clubbing. No ascites. Pulses: Dorsalis pedis and posterior tibial pulses +1 to +2 both sides. ABDOMEN: Soft. Non-tender. Bowel sounds active. No CVA tenderness. No mass felt. EXTREMITIES: +2 bilateral extremity edema. Full range of motion of all extremities, equal. NEUROLOGIC: No focal deficit. Cranial nerves II through XII are grossly intact. No headache, no double vision or headache. SKIN: Not dry. Intact. Turgor-normal. LYMPHATIC: No palpable lymph nodes/no lymphedema. MUSCULOSKELETAL: Normal joints with no swelling. Muscle tone is normal. LAB REVIEW: 12/21/18 01:30 12/21/18 01:30 12/21/18 01:30: WBC 7.80, RBC 4.20, Hgb 12.8, Hct 38.1, MCV 90.7, MCH 30.5, MCHC 33.6, RDW Coeff of [place] 13.3, Plt Count 159, Immature Gran % (Auto) 0.4, Neut % (Auto) 60.7, Lymph % (Auto) 26.3, [place] % (Auto) 9.2, Eos % (Auto) 2.9, Baso % (Auto) 0.5, Immature Gran # (Auto) 0.0, Neut # (Auto) 4.7, Lymph # (Auto ) 2.1, [place] # (Auto) 0.7, Eos # (Auto) 0.2, Baso # (Auto) 0.0 12/21/18 01:30: Sodium 140.6, Potassium 3.97, Chloride 108.2 H, Carbon Dioxide 24.4, Anion Gap 11.97, BUN 16.3, Creatinine 0.84, Estimated GFR (MDRD) 64.00, BUN/Creatinine Ratio 19.40, Glucose 115.6 H, Calcium 9.37, Total Bilirubin 0.93 , AST 19.7, ALT 13.2, Alkaline Phosphatase 70.4, Total Creatine Kinase 58.4, Total Protein 7.06, Albumin 4.43, Globulin 2.63, Albumin/Globulin Ratio 1.68 12/20/18 11:05: Urine Color Yellow, Urine Clarity Clear, Urine pH 7.0, Ur Specific [place] 1.010, Urine Protein Negative, Urine Glucose (UA) Negative, Urine Ketones Negative, Urine Blood 1+, Urine Nitrite Negative, Urine Bilirubin Negative, Urine Urobilinogen 0.2, Ur Leukocyte Esterase 1+, Urine Microscopic RBC 2-5, Urine Microscopic WBC 10-20, Ur Squamous Epith Cells 0-2, Ur Transition Epith Cell 2-5, Urine Bacteria 1+ 12/20/18 10:25: Sodium 139.7, Potassium 4.01, Chloride 106.7, Carbon Dioxide 24.7, Anion Gap 12.31, BUN 19.9 H, Creatinine 1.03, Estimated GFR (MDRD) 51.00, BUN/Creatinine Ratio 19.32, Glucose 111.1 H, Calcium 9.67, Total Bilirubin 0.88 , AST 19.9, ALT 13.1, Alkaline Phosphatase 74.5, Total Protein 6.88, Albumin 4.31, Globulin 2.57, Albumin/Globulin Ratio 1.67 12/20/18 10:25: WBC 5.15, RBC 4.09 L, Hgb 12.4, Hct 37.3, MCV 91.2, MCH 30.3, MCHC 33.2, RDW Coeff of [place] 13.5, Plt Count 159, Immature Gran % (Auto) 0.2, Neut % (Auto) 57.3, Lymph % (Auto) 28.7, [place] % (Auto) 10.1 H, Eos % (Auto) 2.9 , Baso % (Auto) 0.8, Immature Gran # (Auto) 0.0, Neut # (Auto) 3.0, Lymph # ( Auto) 1.5, [place] # (Auto) 0.5, Eos # (Auto) 0.2, Baso # (Auto) 0.0 12/20/18 10:23: Total Creatine Kinase 52.7 ASSESSMENT: 1. Hypertension. 2. Leg edema. 3. Shortness of breath. PLAN: 1. D/C IV fluids. 2. Lasix 40 mg IV. 3. Increase Minoxidil to 5 mg b.i.d. Plan and coordination of the patient's care discussed in the presence of Airframe Technical Officer and nurse. CONDITION: Stable SCRIBED BY: CAN DUMONT [employer] Maintenance Worker scribed while in presence of service performed by Dr. Nascimento/Danay Valadez APRN on 12/21/18 ([id number])
--- NOTE | 2018-12-21 13:39 | DI ---
EXAM: CHEST FRONTAL AND LATERAL VIEWS HISTORY: Hypertension, chest heaviness. COMPARISON: 08/23/2018 FINDINGS: Stable cardiomegaly. Atherosclerotic disease. Sternotomy wires are present. There are s cattered calcifications suggesting old granulomatous disease. No acute infiltrates are seen. No vas cular congestion. There is no consolidation, visible pleural fluid or pneumothorax. Bones reveal no acute fracture. IMPRESSION: Cardiomegaly and atherosclerosis. No acute cardiopulmonary process.
[2018-12-21] MEDS: MEVACOR PO SCH (21:12)
[2018-12-21] MEDS: ASPIRIN EC PO SCH (21:12)
[2018-12-22] MEDS: LASIX TAB PO SCH (05:54)
--- NOTE | 2018-12-22 09:09 | PCM.PROG ---
Attending Provider: ATTENDING PROVIDER: Dr. ELSA NASCIMENTO This patient is seen with Danay Valadez, Nurse Practitioner. DATE OF SERVICE: 12/22/18 SUBJECTIVE: This 88 year old WHITE/ F was hospitalized 12/20/18. The patient is sitting in chair resting comfortably. Blood pressure has been more controlled, 110 to 140 systolic. She is eating well. Leg edema improved. REVIEW OF SYSTEMS: CONSTITUTIONAL: No night sweats. No fatigue, malaise, lethargy. No fever or chills. HEENT: Eyes: No visual changes. No eye pain. No eye discharge. ENT: No runny nose. No epistaxis. No sinus pain. No odynophagia. No congestion. RESPIRATORY: No cough, no congestion. No hemoptysis. No shortness of breath. CARDIOVASCULAR: No angina symptoms. No CHF symptoms. No atypical chest pain for CAD. No palpitations. No orthopnea.. GASTROINTESTINAL: No abdominal pain. No nausea or vomiting. No diarrhea or constipation. No hematemesis. No hematochezia. GENITOURINARY: No urgency. No frequency. No dysuria. No hematuria. No obstructive symptoms. No discharge. No pain. No significant abnormal bleeding. MUSCULOSKELETAL: No musculoskeletal pain; no joint swelling. NEUROLOGICAL: Awake, alert, oriented to time, place and person. No headache. No neck pain. No syncope. No seizures. No dizziness. PSYCHIATRIC: Not anxious. No depression. No suicidal thoughts. No homicidal thoughts. SKIN: No rash. No lesions. No wounds. Leg edema improved. ENDOCRINE: No unexplained weight loss. No weight gain. HEMATOLOGIC/LYMPHATIC: No anemia. No purpura. No petechiae. No prolonged or excessive bleeding. No palpable lymph nodes. PHYSICAL EXAMINATION: GENERAL: The patient is awake, alert and oriented, sitting in chair in no distress. VITAL SIGNS: Temperature 97.8 F, Pulse 74, Respiratory Rate 18, BP 141/68, Pulse Ox 95% HEENT: Head normocephalic, atraumatic. Eyes: Extraocular muscles are intact. Pupils are equal, round and reactive to light and accommodation. Ears: No lesions. Nose appeared normal. Throat: No exudate or erythema. NECK: Supple. No JVD, no carotid bruit. No lymphadenopathy or thyromegaly. LUNGS: Diminished breath sounds. Clear to auscultation. Percussion note normal. Chest symmetrical. HEART: S1, S2, no S3. No murmurs. No cyanosis or clubbing. No ascites. Pulses: Dorsalis pedis and posterior tibial pulses +1 to +2 both sides. ABDOMEN: Soft. Non-tender. Bowel sounds active. No CVA tenderness. No mass felt. EXTREMITIES: Trace bilateral lower extremity edema. Full range of motion of all extremities, equal. NEUROLOGIC: No focal deficit. Cranial nerves II through XII are grossly intact. No headache, no double vision or headache. SKIN: Not dry. Intact. Turgor-normal. LYMPHATIC: No palpable lymph nodes/no lymphedema. MUSCULOSKELETAL: Normal joints with no swelling. Muscle tone is normal. LAB REVIEW: 12/22/18 05:00 12/22/18 05:00 12/22/18 05:00: Sodium 139.3, Potassium 3.61, Chloride 105.4, Carbon Dioxide 26.4, Anion Gap 11.11, BUN 20.6 H, Creatinine 0.98, Estimated GFR (MDRD) 54.00, BUN/Creatinine Ratio 21.02, Glucose 90.2, Calcium 9.09, Total Bilirubin 0.86, AST 18.2, ALT 11.1, Alkaline Phosphatase 66.1, Total Protein 6.12 L, Albumin 3.72, Globulin 2.40, Albumin/Globulin Ratio 1.55 12/22/18 05:00: WBC 5.73, RBC 3.96 L, Hgb 11.8 L, Hct 35.7 L, MCV 90.2, MCH 29.8 , MCHC 33.1, RDW Coeff of [place] 13.3, Plt Count 161, Immature Gran % (Auto) 0.2, Neut % (Auto) 47.2, Lymph % (Auto) 35.3, [place] % (Auto) 12.2 H, Eos % (Auto) 4.4 , Baso % (Auto) 0.7, Immature Gran # (Auto) 0.0, Neut # (Auto) 2.7, Lymph # ( Auto) 2.0, [place] # (Auto) 0.7, Eos # (Auto) 0.3, Baso # (Auto) 0.0 ASSESSMENT: 1. Hypertension. 2. Leg edema. 3. Shortness of breath. PLAN: 1. Continue Minoxidil. 2. Continue to monitor. 3. Anticipate discharge home tomorrow. Plan and coordination of the patient's care discussed in the presence of Assembler Cards And Announcements and nurse. CONDITION: Stable SCRIBED BY: Gary JEREZist scribed while in presence of service performed by Dr. Nascimento/Danay Valadez APRN on 12/22/18 ([id number])
[2018-12-22] MEDS: COZAAR PO SCH (09:35)
[2018-12-22] MEDS: CATAPRES PO SCH (09:35)
[2018-12-22] MEDS: MINOXIDIL PO SCH ×2 (09:35→20:36)
[2018-12-22] MEDS: COREG PO SCH ×2 (09:35→16:39)
--- NOTE | 2018-12-22 14:28 | PN ---
DATE OF SERVICE: 12/21/18 SUBJECTIVE: The patient was seen and examined with the nurse practitioner. Condition seems to have improved with blood pressure systolic 150. The patient is on Cardizem, Minoxidil and several other antihypertensive medications. Condition is stable. TIME SPENT: More than 30 minutes. Plan and coordination of the patient's care discussed in the presence of nurse. ELVA
[2018-12-22] MEDS: MEVACOR PO SCH (20:35)
[2018-12-22] MEDS: ASPIRIN EC PO SCH (20:36)
[2018-12-23] MEDS: SODIUM CHLORIDE 1,000 ML IV SCH ×2 (04:31→08:38)
[2018-12-23] MEDS: LASIX TAB PO SCH (05:33)
[2018-12-23] MEDS: COREG PO SCH (08:37)
[2018-12-23] MEDS: COZAAR PO SCH (08:37)
[2018-12-23] MEDS: MINOXIDIL PO SCH (08:37)
[2018-12-23] MEDS: CATAPRES PO SCH (08:37)
--- NOTE | 2018-12-23 09:52 | PCM.PROG ---
Attending Provider: ATTENDING PROVIDER: Dr. ELSA NASCIMENTO This patient is seen with Danay Valadez, Nurse Practitioner. DATE OF SERVICE: 12/23/18 SUBJECTIVE: This 88 year old WHITE/ F was hospitalized 12/20/18. The patient is sitting in chair resting comfortably. The patient has been up and about walking. Blood pressure has been stable. She has been eating well. She is ready for discharge home today. REVIEW OF SYSTEMS: CONSTITUTIONAL: No night sweats. No fatigue, malaise, lethargy. No fever or chills. HEENT: Eyes: No visual changes. No eye pain. No eye discharge. ENT: No runny nose. No epistaxis. No sinus pain. No odynophagia. No congestion. RESPIRATORY: No cough, no congestion. No hemoptysis. No shortness of breath. CARDIOVASCULAR: No angina symptoms. No CHF symptoms. No atypical chest pain for CAD. No palpitations. No orthopnea.. GASTROINTESTINAL: No abdominal pain. No nausea or vomiting. No diarrhea or constipation. No hematemesis. No hematochezia. GENITOURINARY: No urgency. No frequency. No dysuria. No hematuria. No obstructive symptoms. No discharge. No pain. No significant abnormal bleeding. MUSCULOSKELETAL: No musculoskeletal pain; no joint swelling. NEUROLOGICAL: Awake, alert, oriented to time, place and person. No headache. No neck pain. No syncope. No seizures. No dizziness. PSYCHIATRIC: Not anxious. No depression. No suicidal thoughts. No homicidal thoughts. SKIN: No rash. No lesions. No wounds. ENDOCRINE: No unexplained weight loss. No weight gain. HEMATOLOGIC/LYMPHATIC: No anemia. No purpura. No petechiae. No prolonged or excessive bleeding. No palpable lymph nodes. PHYSICAL EXAMINATION: GENERAL: The patient is awake, alert and oriented, sitting in chair in no distress. VITAL SIGNS: Temperature 98.5 F, Pulse 59, Respiratory Rate 20, BP 149/68, Pulse Ox 94% HEENT: Head normocephalic, atraumatic. Eyes: Extraocular muscles are intact. Pupils are equal, round and reactive to light and accommodation. Ears: No lesions. Nose appeared normal. Throat: No exudate or erythema. NECK: Supple. No JVD, no carotid bruit. No lymphadenopathy or thyromegaly. LUNGS: Diminished breath sounds. Clear to auscultation. Percussion note normal. Chest symmetrical. HEART: S1, S2, no S3. No murmurs. No cyanosis or clubbing. No ascites. Pulses: Dorsalis pedis and posterior tibial pulses +1 to +2 both sides. ABDOMEN: Soft. Non-tender. Bowel sounds active. No CVA tenderness. No mass felt. EXTREMITIES: Trace chronic leg edema. Full range of motion of all extremities , equal. NEUROLOGIC: No focal deficit. Cranial nerves II through XII are grossly intact. No headache, no double vision or headache. SKIN: Not dry. Intact. Turgor-normal. LYMPHATIC: No palpable lymph nodes/no lymphedema. MUSCULOSKELETAL: Normal joints with no swelling. Muscle tone is normal. LAB REVIEW: 12/23/18 05:00 12/23/18 05:00 12/23/18 05:00: Sodium 138.8, Potassium 4.06, Chloride 101.4, Carbon Dioxide 28.3, Anion Gap 13.16, BUN 25.3 H, Creatinine 1.07, Estimated GFR (MDRD) 49.00, BUN/Creatinine Ratio 23.64, Glucose 97.8, Calcium 9.68, Total Bilirubin 0.95, AST 22.0, ALT 13.9, Alkaline Phosphatase 76.0, Total Protein 7.13, Albumin 4.38 , Globulin 2.75, Albumin/Globulin Ratio 1.59 12/23/18 05:00: WBC 6.52, RBC 4.35, Hgb 13.2, Hct 39.6, MCV 91.0, MCH 30.3, MCHC 33.3, RDW Coeff of [place] 13.2, Plt Count 191, Immature Gran % (Auto) 0.2, Neut % (Auto) 51.9, Lymph % (Auto) 31.3, [place] % (Auto) 11.2 H, Eos % (Auto) 4.6 , Baso % (Auto) 0.8, Immature Gran # (Auto) 0.0, Neut # (Auto) 3.4, Lymph # ( Auto) 2.0, [place] # (Auto) 0.7, Eos # (Auto) 0.3, Baso # (Auto) 0.1 ASSESSMENT: Please see below. 1. Hypertension, controlled. 2. Leg edema. 3. Shortness of breath, resolved. PLAN: 1. Continue Minoxidil 5 mg b.i.d. 2. D/C home today. 3. The patient is to followup in the office next week. Plan and coordination of the patient's care discussed in the presence of Machine Umbrella Tipper and nurse. CONDITION: Stable SCRIBED BY: CAN DUMONT Sales Audit Clerk scribed while in presence of service performed by Dr. Nascimento/Danay Valadez APRN on 12/23/18 ([id number])
[2018-12-23 10:07] VITALS: BP 107/55; TEMP 98
--- NOTE | 2018-12-23 10:56 | CM.DICTOOL ---
ADMISSION: 12/20/18 11:57 DISCHARGE: DECEMBER 23, 2018 DATE OF SERVICE: 12/23/18 FINAL DIAGNOSIS HYPERTENSION, CONTROLLED LEG EDEMA, IMPROVED SHORTNESS OF AIR, RESOLVED CAD LVH DYSLIPIDEMIA OSTEOARTHRITIS ANXIETY STRESS INCONTINENCE CABG, 2002 RIGHT HIP REPLACEMENT, 2017 APPENDECTOMY CHOLECYSTECTOMY ECHOCARDIOGRAM JUL, 2018 LVH WITH BORDERLINE LEFT ATRIAL CAVITY LVEF 64% LAST VITALS Temp Pulse Resp BP Pulse Ox 98.5 F 59 L 20 149/68 H 94 L 12/23/18 05:00 12/23/18 05:00 12/23/18 05:00 12/23/18 05:00 12/23/18 05:00 TAKE THESE MEDICATIONS AT HOME Aspirin (Aspirin Ec) 81 mg PO BEDTIME [facility] Last Admin: 12/22/18 20:36 Dose: 81 mg Biotin 5mg PO DAILY [facility] Last Admin: n/a Calium Carbonate/Vitamin D3 [Calcium 500 + D Tablet] 1 tab PO DAILY Last Admin: n/a Carvedilol (Coreg) 12.5 mg PO BIDWM [facility] Last Admin: 12/23/18 08:37 Dose: 12.5 mg Clonidine (Catapres) 0.1 mg PO DAILY [facility] Last Admin: 12/23/18 08:37 Dose: 0.1 mg Furosemide (Lasix Tab) 40 mg PO QDAC [facility] Last Admin: 12/23/18 05:33 Dose: 40 mg Losartan Potassium (Cozaar) 100 mg PO DAILY [facility] Last Admin: 12/23/18 08:37 Dose: 100 mg Lovastatin (Mevacor) 40 mg PO BEDTIME [facility] Last Admin: 12/22/18 20:35 Dose: 40 mg Minoxidil (Minoxidil) 5 mg PO BID [facility] Last Admin: 12/23/18 08:37 Dose: 5 mg Potassium Chloride [K dur] 20 meq PO DAILY [facility] Last Admin: n/a ALLERGIES cephalexin monohydrate [From Keflex] Adverse Reaction (Verified 12/20/18 09:46) Rash pravastatin [From Pravachol] Adverse Reaction (Verified 12/20/18 09:46) DISCONTINUED MEDICATIONS MINOXIDIL 2.5 MG PO DAILY DOSE INCREASED TO 5 MG TWICE A DAY NEW PRESCRIPTIONS: MINOXIDIL 5 MG TAKE ONE TABLET BY MOUTH TWICE A DAY LASIX 40 MG TAKE ONE TABLET BY MOUTH EVERY MORNING ON EMPTY STOMACH K DUR 20 MG TAKE ONE TABLET BY MOUTH DAILY SMOKING: NON SMOKER DISEASE SPECIFIC EDUCATION: HYPERTENSION SOA LEG EDEMA MEDICATIONS FOLLOW UP APPOINTMENT LAB REVIEW: 12/23/18 05:00 12/23/18 05:00 12/23/18 05:00: Sodium 138.8, Potassium 4.06, Chloride 101.4, Carbon Dioxide 28.3, Anion Gap 13.16, BUN 25.3 H, Creatinine 1.07, Estimated GFR (MDRD) 49.00, BUN/Creatinine Ratio 23.64, Glucose 97.8, Calcium 9.68, Total Bilirubin 0.95, AST 22.0, ALT 13.9, Alkaline Phosphatase 76.0, Total Protein 7.13, Albumin 4.38 , Globulin 2.75, Albumin/Globulin Ratio 1.59 12/23/18 05:00: WBC 6.52, RBC 4.35, Hgb 13.2, Hct 39.6, MCV 91.0, MCH 30.3, MCHC 33.3, RDW Coeff of Norris 13.2, Plt Count 191, Immature Gran % (Auto) 0.2, Neut % (Auto) 51.9, Lymph % (Auto) 31.3, Hinds % (Auto) 11.2 H, Eos % (Auto) 4.6 , Baso % (Auto) 0.8, Immature Gran # (Auto) 0.0, Neut # (Auto) 3.4, Lymph # ( Auto) 2.0, Hinds # (Auto) 0.7, Eos # (Auto) 0.3, Baso # (Auto) 0.1 PLAN: DISCHARGE HOME TODAY DECEMBER 23, 2018 DIET: HEART HEALTHY ACTIVITY: GRADUALLY RESUME NORMAL ACTIVITY TOLERATED KEEP LEGS ELEVATED AT REST FOLLOW UP WITH DR. NASCIMENTO ON ThursdayDecember AT 1045. PLEASE CALL AND RESCHEDULE IF UNABLE TO KEEP. [phone]. CODE STATUS: DO NOT RESUSCITATE ALERT, ORIENTED TIMES THREE. MS. RIVERO IS AGREEABLE WITH DISCHARGE HOME TODAY. SHE IS INDEPENDENT WITH ALL ACTIVITIES OF DAILY LIVING. DOES NOT REQUIRE USE OF ASSISTANCE DEVICE FOR AMBULATION. NO SHORTNESS OF AIR AT REST OR WITH EXERTION. HER APPETITE HAS BEEN GOOD WITH MEAL INTAKE 75-90%. LAST BM TODAY. HYDRATION STATUS IS ADEQUATE. SKIN IS INTACT. ELSA NASCIMENTO M.D. LEXIE JULIEN APRN
--- NOTE | 2018-12-24 09:22 | HP ---
DATE OF SERVICE: 12/20/18 REASON FOR HOSPITALIZATION/HISTORY OF PRESENT ILLNESS: 88 year old white female who presents to the emergency room with hypertension. She has had some weakness at home and a headache. She just states that she isn' t feeling well. PAST MEDICAL HISTORY: Dyslipidemia Hypertension Chronic leg edema Chronic back pain Coronary artery disease PAST SURGICAL HISTORY: Appendectomy Cholecystectomy CABG REVIEW OF SYSTEMS: CONSTITUTIONAL: No night sweats. Fatigue. No fever or chills. HEENT: Eyes: No visual changes. No eye pain. No eye discharge. ENT: No runny nose. No epistaxis. No sinus pain. No sore throat. No odynophagia. No ear pain. No congestion. RESPIRATORY: No cough, no congestion. No hemoptysis. No shortness of breath. CARDIOVASCULAR: No angina symptoms. No CHF symptoms. No atypical chest pain for CAD. No palpitations. No PND. No orthopnea. GASTROINTESTINAL: No abdominal pain. No nausea or vomiting. No diarrhea or constipation. No hematemesis. No hematochezia. GENITOURINARY: No urgency. No frequency. No dysuria. No hematuria. No obstructive symptoms. No discharge. No pain. No significant abnormal bleeding. MUSCULOSKELETAL: No musculoskeletal pain. No joint swelling. No arthritis. NEUROLOGICAL: Headache. No neck pain. No syncope. No seizures. No dizziness. PSYCHIATRIC: Not anxious. No depression. No suicidal thoughts. No homicidal thoughts. SKIN: No rash. No lesions. No wounds. ENDOCRINE: No unexplained weight loss. No weight gain. HEMATOLOGIC/LYMPHATIC: No anemia. No purpura. No petechiae. No prolonged or excessive bleeding. No palpable lymph nodes. PERSONAL/FAMILY/SOCIAL HISTORY: The patient is nonsmoker, she is . She lives at home by herself. No alcohol or illicit drug use. MEDICATIONS: Aspirin 81mg PO daily Lovastatin 40mg PO bedtime Catapres 0.1mg PO daily Calcium 500+D tablet one each tablet PO daily Lasix 40mg PO QDAC PRN K-Dur 20meq PO once PRN Coreg 12.5mg PO twice a day Cozaar 100mg PO daily Minoxidil 2.5mg tablet PO daily Biotin 5mg PO daily ALLERGIES: Cephalexin Monohydrate Pravastatin PHYSICAL EXAMINATION: VITAL SIGNS: Temperature 98.6, heart rate 62, respiratory rate 18, blood pressure 216/91 and pulse ox 94%. HEENT: Head normocephalic, atraumatic. Eyes: Extraocular muscles are intact. Pupils are equal, round and reactive to light and accommodation. Ears: No lesions. Nose appeared normal. Throat: No exudate or erythema. NECK: Supple. No JVD, no carotid bruit. No lymphadenopathy or thyromegaly. LUNGS: Diminished breath sounds bilaterally. Clear to auscultation. Percussion note normal. Chest symmetrical. HEART: S1, S2, no S3. No murmurs. No cyanosis or clubbing. No ascites. Pulses: Dorsalis pedis and posterior tibial pulses +1 to +2 bilaterally. ABDOMEN: Soft. Nontender. Bowel sounds active. No CVA tenderness. No mass felt. EXTREMITIES: +1 bilateral leg edema. Full range of motion of all extremities, equal. NEUROLOGIC: No focal deficit. Cranial nerves II through XII are grossly intact. No headache, no double vision or headache. SKIN: Not dry. Intact. Turgor - normal. LYMPHATIC: No palpable lymph nodes/no lymphedema. MUSCULOSKELETAL: Normal joints with no swelling. Muscle tone is normal. LABS:; WBC 5.15, hgb 12.4, hct 37.3, plt count 159, sodium 139, potassium 4.0, BUN 19, creatinine 1.03, glucose 111, AST 19, ALT 13, Urine showed +1 bacteria, +1 leukocytes, +1 blood. ASSESSMENT: 1. Uncontrolled hypertension 2. Leg edema 3. Abnormal U/A 4. Coronary artery disease 5. Dyslipidemia PLAN: 1. Admit to the Special Care Unit 2. Routine telemetry orders 3. CBC and CMP daily 4. Continue home medications 5. Start Minoxidil 5mg daily 6. Vasotec 1.25mg IV now Q 6 hour PRN 7. Urine for culture and sensitivity 8. IV fluids normal saline at 75cc an hour Will follow closely. TIME SPENT: More than 70 minutes. MTDD
--- NOTE | 2018-12-24 09:47 | DS ---
DATE OF SERVICE: 12/23/18 FINAL DIAGNOSIS: 1.HYPERTENSION, CONTROLLED 2.LEG EDEMA, IMPROVED 3.SHORTNESS OF AIR, RESOLVED 4.CAD 5.LVH 6.DYSLIPIDEMIA 7.OSTEOARTHRITIS 8.ANXIETY 9.STRESS INCONTINENCE 10.CABG, 2001 11.RIGHT HIP REPLACEMENT, 2016 12.APPENDECTOMY 13.CHOLECYSTECTOMY 14.ECHOCARDIOGRAM JUL, 2018; LVH WITH BORDERLINE LEFT ATRIAL CAVITY and LVEF 64% LAST VITALS: Temp Pulse Resp BP Pulse Ox 98.5 F 59 L 20 149/68 H 94 L 12/23/18 05:00 12/23/18 05:00 12/23/18 05:00 12/23/18 05:00 12/23/18 05:00 DISCHARGE INSTRUCTION: DISCHARGE HOME TODAY DECEMBER 23, 2018. FOLLOW UP WITH DR. NASCIMENTO ON ThursdayDecember AT 1045. PLEASE CALL AND RESCHEDULE IF UNABLE TO KEEP. [phone]. CODE STATUS: DO NOT RESUSCITATE TAKE THESE MEDICATIONS AT HOME: Aspirin (Aspirin Ec) 81 mg PO BEDTIME [facility] Biotin 5mg PO DAILY [facility] Calium Carbonate/Vitamin D3 [Calcium 500 + D Tablet] 1 tab PO DAILY Carvedilol (Coreg) 12.5 mg PO BIDWM [facility] Clonidine (Catapres) 0.1 mg PO DAILY [facility] Furosemide (Lasix Tab) 40 mg PO QDAC [facility] Losartan Potassium (Cozaar) 100 mg PO DAILY [facility] Lovastatin (Mevacor) 40 mg PO BEDTIME [facility] Minoxidil (Minoxidil) 5 mg PO BID [facility] Potassium Chloride [K dur] 20 meq PO DAILY [facility] ALLERGIES: cephalexin monohydrate [From Keflex] Adverse Reaction (Verified 12/20/18 09:46) pravastatin [From Pravachol] Adverse Reaction (Verified 12/20/18 09:46) DISCONTINUED MEDICATIONS: MINOXIDIL 2.5 MG PO DAILY DOSE INCREASED TO 5 MG TWICE A DAY NEW PRESCRIPTIONS: MINOXIDIL 5 MG TAKE ONE TABLET BY MOUTH TWICE A DAY LASIX 40 MG TAKE ONE TABLET BY MOUTH EVERY MORNING ON EMPTY STOMACH K DUR 20 MG TAKE ONE TABLET BY MOUTH DAILY SMOKING: NON SMOKER DISEASE SPECIFIC EDUCATION: HYPERTENSION SHORTNESS OF AIR LEG EDEMA MEDICATIONS FOLLOW UP APPOINTMENT DIET: HEART HEALTHY ACTIVITY: GRADUALLY RESUME NORMAL ACTIVITY TOLERATED. KEEP LEGS ELEVATED AT REST HOSPITAL COURSE: The patient was brought to the emergency room by family with extreme hypertension, blood pressure 210/110. She was initially given Vasotec 1.25mg IV along with Minoxidil 2.5mg. Blood pressure went down slightly. She was admitted to the special care unit. Chest x-ray did showed some vascular congestion. We administered 40mg of IV Lasix and then increased her Minoxidil to 5mg twice a day and blood pressure has been controlled since. Systolic has been anywhere from 111 to 140. She just had an echocardiogram in July of 2018 which showed which showed LVH with an ejection fraction of 64%. For the past two days she has been eating well. Yesterday she was up and about walking around. Her shortness of breath has resolved after she had the IV Lasix. We will continue her on Lasix 40mg along with Potassium 20meq daily. We will discharge her home in stable condition and followup with her in the office next Thursday. Today at time of discharge Temperature 98, heart rate 59, respiratory rate 20, blood pressure 140/68 and pulse ox 94%. WBC 6.5, hgb 13.2, hct 39.6, BUN 25, creatinine 1.07, Sodium 138, Potassium 4.06. TIME SPENT: More than 60 minutes. MTDD
== END 2018-12-23 13:00 | disposition home or self-care (01) | DRG 948 ==
LOC: ED 09:31 → SCU 11:57
PROVIDERS: ADMIT Internal Medicine; ATTEND Internal Medicine
DX: R60.0 Localized edema (principal); R06.02 Shortness of breath; I25.10 Atherosclerotic heart disease of native coronary artery without angina pectoris; E78.5 Hyperlipidemia, unspecified; M19.90 Unspecified osteoarthritis, unspecified site; F41.9 Anxiety disorder, unspecified; N39.3 Stress incontinence (female) (male)
CPT/HCPCS: 36415; 80053; 81001; 82550; 82962; 85025; 87081; 87086; 93005; 93010; 97802; 99284

== ENCOUNTER 2019-09-22 01:20 | Inpatient (IN) ==
--- NOTE | 2019-09-22 01:28 | ED.PDOC ---
General ED Provider: Dr. PEDRO ALVARENGA Chief Complaint: Headache Stated Complaint: REILLY and HTN; began checking BP in the afternoon - initially about 150/67 and then kept checking every hour - noted Headache at the same time. On entry to ER BP 121/95 and REILLY still present. Was in hospital July 4 days with same sx on ER presentation. Had CT and blood work then Time Seen by Physician: 01:27 Mode of Arrival: Walk-In Information Source: Patient Exam Limitations: No limitations Primary Care Provider: ELSA NASCIMENTO Nursing and Triage Documentation Reviewed and Agree: Yes Does patient meet sepsis criteria?: No System Inflammatory Response Syndrome: Not Applicable Sepsis Protocol: For patient's 13 years and over: Temp is 96.8 and below OR 101 and greater Pulse >90 BPM Resp >20/minute Acutely Altered Mental Status Are patient's symptoms suggestive of a new infection, such as: -Pneumonia -Skin, Soft Tissue -Endocarditis -UTI -Bone, Joint Infection -Implantable Device -Acute Abdominal Infection -Wound Infection -Meningitis -Blood Stream Catheter Infection -Unknown Review of Systems Review Of Systems Constitutional: Reports Malaise Respiratory: Reports No symptoms; Denies Cough Cardiac: Reports No symptoms; Denies Chest pain GI: Reports Nausea (Developed while in ER setting) Neurological: Reports Anxiety (Concerned about HTN; started afternoon and rechecked apparently hourly until arrival ) and Headache (noted in afternoon when BP first checked BP 150/67 per patient recall) All Other Systems: Reviewed and Negative [facility] Medical History Arthritis (Acute) Constipation (Acute) Coronary arteriosclerosis after coronary artery bypass grafting (Acute) Coronary artery arteriosclerosis (Acute) Edema (Acute) History of cholecystectomy (Acute) Hx of appendectomy (Acute) Hyperlipemia (Acute) Hypertension (Acute) Family History SISTER DVT (deep venous thrombosis) Mother Heart disease Social History Smoking and tobacco status: Never smoker History of recent travel: No Female Reproductive History Menstrual Hx Hysterectomy: No Hx Tubal Ligation: No Physical Exam Physical Exam Appearance: Reports Well-appearing Ill-appearing: None Pain Distress: None Eyes: Reports JAYCEE and EOMI ENT: Reports Nose normal and Oropharynx normal Neck: Supple Respiratory: Reports Airway patent, Breath sounds clear and Breath sounds equal Cardiovascular: Reports RRR and Pulses normal GI/: Reports Soft and Nontender Musculoskeletal: Reports Normal strength and ROM intact Skin: Reports Warm, Dry and Normal color Neurological: Reports Sensation intact, Motor intact, Reflexes intact, Alert and Oriented Psychiatric: Reports Affect appropriate, Mood appropriate and Anxious (Very) Interpretation Radiology Interpretation Radiology Interpretation By: ED Physician Radiology Results: No acute changes Exam Interpreted: Portable CXR EKG Interpretation Time of EKG #1: 02:08 Rate: Normal Ectopy: None Interpretation: Wide QRS; RBBB; similar to 31 Jul 2134 hours and 01 Aug 507 hours Re-Evaluation Re-Evaluation Time of Re-Evaluation: 05:25 Status: Improved (BP somewhat lower but REILLY remains; given 0.5 dilaudid IM) Vital Signs Stable: Yes Skin: Warm and Dry Neuro: Alert and Oriented X3 Physician Notification Case Discussed Physician Notified: Dr Nascimenot - Admisison - HTN Time of Notification: 06:45 Critical Care Note Critical Care Note Total Time (mins): 40 Comments: Review of prior labs, EKG, admission Jul 31; current labs, CT Head without, CXR, EKG; discussion with Dr. Nascimento and admission Course Course Hematology/Chemistry: 09/22/19 02:00 09/22/19 02:00 Orders, Labs, Meds: Lab Review 09/22/19 09/22/19 09/22/19 02:00 02:00 02:00 WBC 6.76 RBC 4.15 L Hgb 13.2 Hct 39.5 MCV 95.2 MCH 31.8 H MCHC 33.4 RDW Coeff of Norris 12.4 Plt Count 170 Immature Gran % (Auto) 0.1 Neut % (Auto) 57.2 Lymph % (Auto) 29.3 Price % (Auto) 10.4 H Eos % (Auto) 2.4 Baso % (Auto) 0.6 Immature Gran # (Auto) 0.0 Neut # (Auto) 3.9 Lymph # (Auto) 2.0 Price # (Auto) 0.7 Eos # (Auto) 0.2 Baso # (Auto) 0.0 Sodium 138.7 Potassium 4.85 Chloride 103.3 Carbon Dioxide 25.8 Anion Gap 14.45 BUN 28.3 H Creatinine 1.22 Estimated GFR (MDRD) 42.00 BUN/Creatinine Ratio 23.19 Glucose 120.3 H Calcium 9.60 Total Bilirubin 0.59 AST 24.0 ALT 13.8 Alkaline Phosphatase 93.5 Troponin I < 0.012 Total Protein 7.66 Albumin 4.60 Globulin 3.06 Albumin/Globulin Ratio 1.50 Orders Category Date Time Status EKG-(ED ONLY) Stat CARDIO 09/22/19 01:36 Completed INTAKE & OUTPUT Q8HR CARE 09/22/19 06:42 Active VITAL SIGNS Q8HR CARE 09/22/19 06:42 Active REGULAR DIET DIETARY 09/22/19 Breakfast Ordered CBC W/ AUTO DIFF Stat LAB 09/22/19 02:00 Completed COMPREHENSIVE METABOLIC PANEL Stat LAB 09/22/19 02:00 Completed TROPONIN I Q8H LAB 09/22/19 12:45 Ordered TROPONIN I Q8H LAB 09/22/19 20:45 Ordered TROPONIN I Stat LAB 09/22/19 02:00 Completed Acetaminophen [Tylenol] MEDS 09/22/19 09:00 Ordered 1,000 mg PO BID Acetaminophen [Tylenol] MEDS 09/22/19 01:48 Discontinued 1,000 mg PO ONCE STA Aspirin [Aspirin EC] MEDS 09/22/19 21:00 Ordered 81 mg PO BEDTIME Carvedilol [Coreg] MEDS 09/22/19 08:00 Ordered 12.5 mg PO BIDWM Clonidine HCl [Catapres] MEDS 09/22/19 09:00 Ordered 0.1 mg PO DAILY Clonidine HCl [Catapres] MEDS 09/22/19 01:39 Discontinued 0.1 mg PO ONCE STA Clonidine HCl [Catapres] MEDS 09/22/19 02:34 Discontinued 0.1 mg PO ONCE STA Furosemide [Lasix Tab] MEDS 09/22/19 07:00 Ordered 40 mg PO DIRECTED Hydromorphone HCl [Dilaudid 0.5 mg/0.5 ml Syringe] MEDS 09/22/19 03:22 Discontinued 0.5 mg IM ONCE STA Hydromorphone HCl [Dilaudid 0.5 mg/0.5 ml Syringe] MEDS 09/22/19 04:38 Dis continued 0.5 mg IVP ONCE STA Losartan Potassium [Cozaar] MEDS 09/22/19 09:00 Ordered 100 mg PO DAILY Lovastatin [Mevacor] [facility] 09/22/19 21:00 Ordered 40 mg PO BEDTIME Minoxidil MED[facility] 09/22/19 09:00 Ordered 5 mg PO BID Nifedipine [Procardia Xl] MEDS 09/22/19 06:04 Discontinued 30 mg PO ONCE STA Ondansetron [Zofran Odt] MEDS 09/22/19 03:22 Discontinued 4 mg PO ONCE STA Ondansetron [Zofran Odt] MEDS 09/22/19 04:12 Discontinued 4 mg PO ONCE STA Potassium Chloride [K-Dur] MEDS 09/22/19 09:00 Ordered 20 meq PO DAILY Promethazine HCl [Phenergan 25 mg/ml Vial] MEDS 09/22/19 06:11 Discontinued 25 mg IM ONCE STA Sodium Chloride 0.9% [Sodium Chloride] 1,000 ml MEDS 09/22/19 07:00 Ordered IV 75 mls/hr biotin MEDS 09/22/19 09:00 Ordered 5 mg PO DAILY calcium carbonate-vitamin D3 [Calcium 500 + D] MEDS 09/22/19 09:00 Ordered 1 tab PO DAILY RESUSCITATION STATUS Routine OTHERS 09/22/19 06:41 Ordered CHEST, 1V AP ONLY Stat RADS 09/22/19 01:[address] HEAD W/O CONTRAST Stat RADS 09/22/19 03:55 Completed Medications Generic Name Dose Route Start Last Admin Trade Name Freq PRN Reason Stop Dose Admin Acetaminophen 1,000 mg 09/22/19 09:00 Tylenol PO BID [facility] Aspirin 81 mg 09/22/19 21:00 Aspirin Ec PO BEDTIME [facility] Carvedilol 12.5 mg 09/22/19 08:00 Coreg PO BIDWM [facility] Clonidine 0.1 mg 09/22/19 09:00 Catapres PO DAILY [facility] Furosemide 40 mg 09/22/19 07:00 Lasix Tab PO DIRECTED [facility] Sodium Chloride 1,000 mls @ 75 mls/hr 09/22/19 07:00 Sodium Chloride IV .[id number] [facility] Losartan Potassium 100 mg 09/22/19 09:00 Cozaar PO DAILY [facility] Lovastatin 40 mg 09/22/19 21:00 Mevacor PO BEDTIME [facility] Minoxidil 5 mg 09/22/19 09:00 Minoxidil PO BID [facility] Non-Formulary Medication 5 mg 09/22/19 09:00 Biotin PO DAILY [facility] Non-Formulary Medication 1 tab 02/27/20 09:00 Calcium Carbonate-Vitamin D3 [Calcium 500 + D] PO DAILY [facility] Potassium Chloride 20 meq 09/22/19 09:00 K-Dur PO DAILY [facility] Discontinued Medications Generic Name Dose Route Start Last Admin Trade Name Aracelis PRN Reason Stop Dose Admin Acetaminophen 1,000 mg 09/22/19 01:48 09/22/19 01:52 Tylenol PO 09/22/19 01:49 1,000 mg ONCE STA Administration Clonidine 0.1 mg 09/22/19 01:39 09/22/19 01:45 Catapres PO 09/22/19 01:40 0.1 mg ONCE STA Administration Clonidine 0.1 mg 09/22/19 02:34 09/22/19 02:39 Catapres PO 09/22/19 02:35 0.1 mg ONCE STA Administration Hydromorphone HCl 0.5 mg 09/22/19 03:22 09/22/19 03:31 Dilaudid 0.5 Mg/0.5 Ml Syringe IM 09/22/19 03:23 0.5 mg ONCE STA Administration Hydromorphone HCl 0.5 mg 09/22/19 04:38 09/22/19 04:42 Dilaudid 0.5 Mg/0.5 Ml Syringe IVP 09/22/19 04:39 0.5 mg ONCE STA Administration Nifedipine 30 mg 09/22/19 06:04 Procardia Xl PO 09/22/19 06:05 ONCE STA Ondansetron HCl 4 mg 09/22/19 03:22 09/22/19 03:31 Zofran Odt PO 09/22/19 03:23 4 mg ONCE STA Administration Ondansetron HCl 4 mg 09/22/19 04:12 09/22/19 04:43 Zofran Odt PO 09/22/19 04:13 Not Given ONCE STA Promethazine HCl 25 mg 09/22/19 06:11 09/22/19 06:18 Phenergan 25 Mg/Ml Vial IM 09/22/19 06:12 25 mg ONCE STA Administration Vital Signs: Temp Pulse Resp BP Pulse Ox 09/22/19 01:20 97.7 F 63 18 221/95 H 91 L Discharge Plan Discharge Patient Disposition: ADMITTED INPATIENT Discharge Problem: Hypertensive crisis ED Provider: PEDRO ALVARENGA Condition: Stable
[2019-09-22] MEDS ORDERED: CATAPRES PO STA ×2 (01:39→02:34)
[2019-09-22] MEDS ORDERED: TYLENOL PO STA (01:48)
[2019-09-22 02:06] LABS: HEMATOCRIT 39.5 % (37.0-47.0)
[2019-09-22] MEDS ORDERED: DILAUDID 0.5 MG/0.5 ML SYRINGE IM STA (03:22)
[2019-09-22] MEDS ORDERED: ZOFRAN ODT PO STA ×2 (03:22→04:12)
--- NOTE | 2019-09-22 04:35 | CT ---
EXAM: CT head without contrast 27 20. Sagittal and coronal reformatted images obtained HISTORY: Headache and hypertension COMPARISON: 07/31/2019 FINDINGS: There is no evidence of intracranial hemorrhage. The midline is maintained. There is no h ydrocephalus. Generalized atrophy and chronic small vessel ischemic changes. No cerebellar tonsilla r ectopia. Evaluation of the calvarium shows no fracture. The mastoid air cells are normally pneuma tized. IMPRESSION: No acute intracranial abnormality.
[2019-09-22] MEDS ORDERED: DILAUDID 0.5 MG/0.5 ML SYRINGE IVP STA (04:38)
[2019-09-22] MEDS: PROCARDIA XL PO STA ×2 (06:09→07:50)
[2019-09-22] MEDS ORDERED: PHENERGAN 25 MG/ML VIAL IM STA (06:11)
[2019-09-22] MEDS ORDERED: SODIUM CHLORIDE 1,000 ML IV SCH (07:00)
--- NOTE | 2019-09-22 07:28 | DI ---
EXAM: Frontal chest HISTORY: Hypertension, coronary artery disease. FINDINGS: Compared to 12/21/2018. Atherosclerotic disease, cardiomegaly and sternotomy wires are ag ain noted and stable. No acute infiltrates are seen. No vascular congestion. There is no consolida tion, visible pleural fluid or pneumothorax. Bones reveal no acute fracture. IMPRESSION: Cardiomegaly and atherosclerotic disease. No acute cardiopulmonary process.
[2019-09-22] MEDS ORDERED: MINOXIDIL PO STA (08:03)
[2019-09-22] MEDS ORDERED: PHENERGAN 25 MG/ML VIAL 25 MG in SODIUM CHLORIDE 50 ML IV PRN (08:06)
[2019-09-22] MEDS ORDERED: VASOTEC IV IVP PRN (08:10)
[2019-09-22 08:43] VITALS: BMI 33.3
[2019-09-22] MEDS: MINOXIDIL PO SCH ×2 (08:50→21:01)
[2019-09-22] MEDS: TYLENOL PO SCH ×2 (08:51→21:05)
[2019-09-22] MEDS: K-DUR PO SCH (08:52)
[2019-09-22] MEDS: COREG PO SCH ×2 (08:52→16:48)
[2019-09-22] MEDS: XANAX PO SCH ×3 (08:52→21:04)
[2019-09-22] MEDS: CALCIUM 500 + VIT D 200 MG TABLET PO SCH (08:52)
[2019-09-22] MEDS: LASIX TAB PO SCH (08:53)
[2019-09-22] MEDS: COZAAR PO SCH (08:53)
[2019-09-22] MEDS: CATAPRES PO SCH ×3 (08:53→21:00)
[2019-09-22] MEDS: NON-FORMULARY MEDICATION (Biotin 5 MG) PO SCH (08:57)
[2019-09-22] MEDS ORDERED: CATAPRES PO SCH (09:00)
[2019-09-22] MEDS ORDERED: CALCIUM CARBONATE VITAMIN D3 PO SCH (09:00)
--- NOTE | 2019-09-22 13:37 | HP ---
DATE OF SERVICE: 09/22/19 HISTORY OF PRESENT ILLNESS: This 89 year old /WHITE F was hospitalized 09/22/19 with hypertensive urgency. The patient had headache and dizziness. Blood pressure was 160 at home yesterday and she started taking it every hour. She was very anxious. She was previously hospitalized on 07/31/19 with the same problem, hypertensive crisis. Blood pressure is very labile and she is on multiple medications like Minoxidil, Losartan, Coreg and Carvedilol. PAST MEDICAL HISTORY: Hypertension Chronic leg edema Coronary artery disease History of LVH Dyslipidemia Polyarthritis Anxiety Stress incontinence Last echocardiographic was in July of 2018 with ejection fraction of 64% PAST SURGICAL HISTORY: CABG 2001 Total right knee replacement 2017 Appendectomy Cholecystectomy REVIEW OF SYSTEMS: CONSTITUTIONAL: Fatigue. No night sweats. No malaise, lethargy. No fever or chills. HEENT: Eyes: No visual changes. No eye pain. No eye discharge. ENT: No runny nose. No epistaxis. No sinus pain. No sore throat. No odynophagia. No ear pain. No congestion. RESPIRATORY: No cough, no congestion. No hemoptysis. Shortness of breath. CARDIOVASCULAR: No angina symptoms. No CHF symptoms. No atypical chest pain for CAD. No palpitations. No PND. No orthopnea. GASTROINTESTINAL: No abdominal pain. Nausea. No vomiting. No diarrhea or constipation. No hematemesis. No hematochezia. GENITOURINARY: No urgency. No frequency. No dysuria. No hematuria. No obstructive symptoms. No discharge. No pain. No significant abnormal bleeding. MUSCULOSKELETAL: No musculoskeletal pain. No joint swelling. No arthritis. NEUROLOGICAL: Headache. No neck pain. No syncope. No seizures. No dizziness. PSYCHIATRIC: Not anxious. No depression. No suicidal thoughts. No homicidal thoughts. SKIN: No rash. No lesions. No wounds. ENDOCRINE: No unexplained weight loss. No weight gain. HEMATOLOGIC/LYMPHATIC: No anemia. No purpura. No petechiae. No prolonged or excessive bleeding. No palpable lymph nodes. PERSONAL/FAMILY/SOCIAL HISTORY: The patient is a , living alone. She is very anxious. She does all activities of daily living. She is still driving. No history of falls. Nonsmoker. No alcohol use. MEDICATIONS: (HOME) Aspirin 81 mg p.o. bedtime Lovastatin 40 mg p.o. bedtime Clonidine 0.1 mg p.o. daily Calcium Carbonate-Vitamin D3 one tab p.o. daily Carvedilol (Coreg) 12.5 mg p.o. b.i.d. with meal Losartan 100 mg p.o. daily Biotin 5 mg p.o. daily Potassium Chloride (Klor-Con) 20 mEq p.o. daily Minoxidil 5 mg p.o. b.i.d. Acetaminophen 1,000 mg p.o. b.i.d. Furosemide 40 mg p.o. as directed ALLERGIES: CEPHALEXIN MONOHYDRATE, PRAVASTATIN PHYSICAL EXAMINATION: VITAL SIGNS: Temperature 97.7, pulse 57, Respiratory rate 14, 02 88 by pulse ox. BP 221/95 in ER. HEENT: Head normocephalic, atraumatic. Eyes: Extraocular muscles are intact. Pupils are equal, round and reactive to light and accommodation. Ears: No lesions. Nose appeared normal. Throat: No exudate or erythema. NECK: Supple. No JVD, no carotid bruit. No lymphadenopathy or thyromegaly. LUNGS: Clear to auscultation. Percussion note normal. Chest symmetrical. HEART: S1, S2, no S3. No murmur. No cyanosis or clubbing. No ascites. Pulses: Dorsalis pedis and posterior tibial pulses +1 to +2 bilaterally. ABDOMEN: Soft. Nontender. Bowel sounds active. No CVA tenderness. No mass felt. EXTREMITIES: No edema. Full range of motion of all extremities, equal. NEUROLOGIC: No focal deficit. Cranial nerves II through XII are grossly intact. No headache, no double vision or headache. SKIN: Not dry. Intact. Turgor - normal. LYMPHATIC: No palpable lymph nodes/no lymphedema. MUSCULOSKELETAL: Normal joints with no swelling. Muscle tone is normal. LAB REVIEW: 09/22/19 07:10: Troponin I 0.036 09/22/19 02:00: Troponin I < 0.012 09/22/19 02:00: Sodium 138.7, Potassium 4.85, Chloride 103.3, Carbon Dioxide 25.8, Anion Gap 14.45, BUN 28.3 H, Creatinine 1.22, Estimated GFR (MDRD) 42.00, BUN/Creatinine Ratio 23.19, Glucose 120.3 H, Calcium 9.60, Total Bilirubin 0.59, AST 24.0, ALT 13.8, Alkaline Phosphatase 93.5, Total Protein 7.66, Albumin 4.60, Globulin 3.06, Albumin/Globulin Ratio 1.50 09/22/19 02:00: WBC 6.76, RBC 4.15 L, Hgb 13.2, Hct 39.5, MCV 95.2, MCH 31.8 H, MCHC 33.4, RDW Coeff of [place] 12.4, Plt Count 170, Immature Gran % (Auto) 0.1, Neut % (Auto) 57.2, Lymph % (Auto) 29.3, [place] % (Auto) 10.4 H, Eos % (Auto) 2.4, Baso % (Auto) 0.6, Immature Gran # (Auto) 0.0, Neut # (Auto) 3.9, Lymph # (Auto) 2.0, [place] # (Auto) 0.7, Eos # (Auto) 0.2, Baso # (Auto) 0.0 IMAGING: Head CT without contrast revealed no acute intracranial abnormality. Chest x-ray revealed cardiomegaly and atherosclerotic disease. No acute cardiopulmonary process. ASSESSMENT: 1. Hypertensive crisis being treated with IV Vasotec, p.o. Clonidine, continuation of Minoxidil, Losartan and Coreg. Clonidine p.o. increased to 0.1 mg three times a day. 2. Chronic leg edema. 3. Chronic kidney disease. 4. Coronary artery disease. 5. Dyslipidemia. 6. Generalized osteoarthritis. 7. Right hip replacement, 2017. 8. Hysterectomy. 9. Appendectomy. 10. CABG, 2001. PLAN: 1. Will continue to monitor patient's blood pressure. 2. Telemetry orders with serial EKGs and cardiac markers. 3. Xanax 0.25 mg p.o. now and three times a day as needed. 4. Minoxidil 5 mg give now. 5. Continue all other home medications. 6. Vasotec 1.25 q.6 for BP over 160 systolic. 7. Clonidine 0.1 mg now and t.i.d. TIME SPENT: More than 70 minutes. SCRIBED BY: CAN DUMONT, Crate Opener scribed while in presence of service performed by Dr. ELSA NASCIMENTO on 09/22/19 ([id number]) [facility]
[2019-09-22] MEDS: MEVACOR PO SCH (21:04)
[2019-09-22] MEDS: ASPIRIN EC PO SCH (21:05)
[2019-09-23] MEDS: LASIX TAB PO SCH (05:42)
--- NOTE | 2019-09-23 09:54 | PCM.PROG ---
Attending Provider: ATTENDING PROVIDER: Dr. ELSA NASCIMENTO DATE OF SERVICE: 09/23/19 SUBJECTIVE: This 89 year old /WHITE F was hospitalized 09/22/19 with hypertensive crisis. REVIEW OF SYSTEMS: CONSTITUTIONAL: No night sweats. No fatigue, malaise, lethargy. No fever or chi lls. HEENT: Eyes: No visual changes. No eye pain. No eye discharge. ENT: No runny nose. No epistaxis. No sinus pain. No odynophagia. No congestion. RESPIRATORY: No cough, no congestion. No hemoptysis. No shortness of breath. CARDIOVASCULAR: No angina symptoms. No CHF symptoms. No atypical chest pain for CAD. No palpitations. No orthopnea.. GASTROINTESTINAL: No abdominal pain. No nausea or vomiting. No diarrhea or constipation. No hematemesis. No hematochezia. GENITOURINARY: No urgency. No frequency. No dysuria. No hematuria. No obstructive symptoms. No discharge. No pain. No significant abnormal bleeding. MUSCULOSKELETAL: No musculoskeletal pain; no joint swelling. NEUROLOGICAL: Awake, alert, oriented to time, place and person. No headache. No neck pain. No syncope. No seizures. No dizziness. PSYCHIATRIC: Not anxious. No depression. No suicidal thoughts. No homicidal thoughts. SKIN: No rash. No lesions. No wounds. ENDOCRINE: No unexplained weight loss. No weight gain. HEMATOLOGIC/LYMPHATIC: No anemia. No purpura. No petechiae. No prolonged or excessive bleeding. No palpable lymph nodes. PHYSICAL EXAMINATION: GENERAL: The patient is awake, alert and oriented, lying/sitting in bed in no distress. VITAL SIGNS: Temperature 98.1 F, Pulse 54, Respiratory Rate 18, BP 149/57, Pulse Ox 99% HEENT: Head normocephalic, atraumatic. Eyes: Extraocular muscles are intact. Pupils are equal, round and reactive to light and accommodation. Ears: No lesions. Nose appeared normal. Throat: No exudate or erythema. NECK: Supple. No JVD, no carotid bruit. No lymphadenopathy or thyromegaly. LUNGS: Clear to auscultation. Percussion note normal. Chest symmetrical. HEART: S1, S2, no S3. No murmurs. No cyanosis or clubbing. No ascites. Pulses: Dorsalis pedis and posterior tibial pulses +1 to +2 both sides. ABDOMEN: Soft. Non-tender. Bowel sounds active. No CVA tenderness. No mass felt. EXTREMITIES: No edema. Full range of motion of all extremities, equal. NEUROLOGIC: No focal deficit. Cranial nerves II through XII are grossly intact. No headache, no double vision or headache. SKIN: Warm and dry. Intact. Turgor-normal. LYMPHATIC: No palpable lymph nodes/no lymphedema. MUSCULOSKELETAL: Normal joints with no swelling. Muscle tone is normal. LAB REVIEW: 09/23/19 05:35 09/23/19 05:35 09/23/19 05:35: Sodium 136.8, Potassium 4.85, Chloride 101.0, Carbon Dioxide 27.2, Anion Gap 13.45, BUN 43.9 H, Creatinine 1.65 H, Estimated GFR (MDRD) 29.00, BUN/Creatinine Ratio 26.60, Glucose 112.7 H, Calcium 9.50, Total Bilirubin 0.48, AST 23.9, ALT 12.8, Alkaline Phosphatase 94.4, Total Protein 6.88, Albumin 4.11, Globulin 2.77, Albumin/Globulin Ratio 1.48 09/23/19 05:35: WBC 8.46, RBC 3.74 L, Hgb 11.9 L, Hct 36.0 L, MCV 96.3, MCH 31.8 H, MCHC 33.1, RDW Coeff of [place] 12.5, Plt Count 144, Immature Gran % (Auto) 0.1, Neut % (Auto) 51.9, Lymph % (Auto) 35.6, [place] % (Auto) 10.4 H, Eos % (Auto) 1.5, Baso % (Auto) 0.5, Immature Gran # (Auto) 0.0, Neut # (Auto) 4.4, Lymph # (Auto) 3.0, [place] # (Auto) 0.9, Eos # (Auto) 0.1, Baso # (Auto) 0.0 09/22/19 20:45: Troponin I 0.073 ASSESSMENT: Please see below. 1. Hypertensive crisis seems to be under control with systolic blood pressure 150. 2. No evidence of ischemia, acute myocardial or CVA event. PLAN: 1. Up and about. 2. Continue same treatment. Plan and coordination of the patient's care discussed in the presence of Distribution Center Administrator and nurse. EDUCATION: Discussed with patient about diet and hypertension - advised her not to take her blood pressure hourly at home. CONDITION: Stable SCRIBED BY: CAN DUMONT, Color Specialist scribed while in presence of service performed by Dr. ELSA NASCIMENTO on 09/23/19 ([id number])
[2019-09-23] MEDS: COZAAR PO SCH (10:00)
[2019-09-23] MEDS: TYLENOL PO SCH ×2 (10:00→20:30)
[2019-09-23] MEDS: CALCIUM 500 + VIT D 200 MG TABLET PO SCH (10:00)
[2019-09-23] MEDS: K-DUR PO SCH (10:00)
[2019-09-23] MEDS: COREG PO SCH ×2 (10:01→17:14)
[2019-09-23] MEDS: XANAX PO SCH ×3 (10:01→20:30)
[2019-09-23] MEDS: MINOXIDIL PO SCH ×2 (10:01→20:30)
[2019-09-23] MEDS: NON-FORMULARY MEDICATION (Biotin 5 MG) PO SCH (10:02)
[2019-09-23] MEDS: CATAPRES PO SCH (10:06)
[2019-09-23] MEDS: ASPIRIN EC PO SCH (20:30)
[2019-09-23] MEDS: MEVACOR PO SCH (20:30)
[2019-09-24 05:37] VITALS: BP 106/52; TEMP 97.6
[2019-09-24] MEDS: LASIX TAB PO SCH (05:53)
[2019-09-24] MEDS: TYLENOL PO SCH (08:35)
[2019-09-24] MEDS: COZAAR PO SCH (08:35)
[2019-09-24] MEDS: XANAX PO SCH (08:35)
[2019-09-24] MEDS: CALCIUM 500 + VIT D 200 MG TABLET PO SCH (08:35)
[2019-09-24] MEDS: COREG PO SCH (08:36)
[2019-09-24] MEDS: K-DUR PO SCH (08:36)
[2019-09-24] MEDS: MINOXIDIL PO SCH (08:36)
[2019-09-24] MEDS: CATAPRES PO SCH (08:36)
--- NOTE | 2019-09-27 09:26 | PN ---
DATE OF SERVICE: 09/24/2019 SUBJECTIVE: 89 year old white female hospitalized with hypertensive crisis. The patient's blood pressure seems to be under control in fact it is on the lower side. Systolic is 106 today. She wants to go home. REVIEW OF SYSTEMS: CONSTITUTIONAL: No night sweats. No fatigue, malaise, lethargy. No fever or chills. HEENT: Eyes: No visual changes. No eye pain. No eye discharge. ENT: No runny nose. No epistaxis. No sinus pain. No sore throat. No odynophagia. No congestion. RESPIRATORY: No cough, no congestion. No hemoptysis. No shortness of breath. CARDIOVASCULAR: No angina symptoms. No CHF symptoms. No atypical chest pain for CAD. No palpitations. No PND. No orthopnea. GASTROINTESTINAL: No abdominal pain. No nausea or vomiting. No diarrhea or constipation. No hematemesis. No hematochezia. GENITOURINARY: No urgency. No frequency. No dysuria. No hematuria. No obstructive symptoms. No discharge. No pain. No significant abnormal bleeding. MUSCULOSKELETAL: No musculoskeletal pain; no joint swelling. NEUROLOGICAL: No headache. No neck pain. No syncope. No seizures. No dizziness. PSYCHIATRIC: Not anxious. No depression. No suicidal thoughts. No homicidal thoughts. SKIN: No rash. No lesions. No wounds. ENDOCRINE: No unexplained weight loss. No weight gain. HEMATOLOGIC/LYMPHATIC: No anemia. No purpura. No petechiae. No prolonged or excessive bleeding. No palpable lymph nodes. PHYSICAL EXAMINATION: VITAL SIGNS: Temperature 97.6, pulse 67, respiratory rate 18, blood pressure 106/52 and pulse ox 92%. HEENT: Head normocephalic, atraumatic. Eyes: Extraocular muscles are intact. Pupils are equal, round and reactive to light and accommodation. Ears: No lesions. Nose appeared normal. Throat: No exudate or erythema. NECK: Supple. No JVD, no carotid bruit. No lymphadenopathy or thyromegaly. LUNGS: Clear to auscultation. Percussion note normal. Chest symmetrical. HEART: S1, S2, no S3. No murmurs. No cyanosis or clubbing. No ascites. Pulses: Dorsalis pedis and posterior tibial pulses +1 to +2 bilaterally. ABDOMEN: Soft. Nontender. Bowel sounds active. No CVA tenderness. No mass felt. EXTREMITIES: No edema. Full range of motion of all extremities, equal. NEUROLOGIC: No focal deficit. Cranial nerves II through XII are grossly intact. No headache, no double vision or headache. SKIN: Not dry. Intact. Turgor - normal. LYMPHATIC: No palpable lymph nodes/no lymphedema. MUSCULOSKELETAL: Normal joints with no swelling. Muscle tone is normal. LABS: Hgb 11.1, hct 34, WBC 8,000 normal differential, creatinine 1.5, BUN 49, potassium 4.6 ASSESSMENT: 1. Hypertensive crisis, Resolved PLAN: 1. Advised the patient to low salt diet 2. Continue the same medications she was on before 3. Add medication Xanax for anxiety 0.25mg twice a day total of 45 tablets with 2 refills. The patient's main problem is her anxiety. She lives by herself and measures her blood pressure every hourly. Advised to get her blood pressure checked every 2-3 days as long as it is within acceptable range. The systolic even if it is 150's acceptable. CONDITION: Stable. TIME SPENT: More than 30 minutes. Plan and coordination of the patient's care discussed in the presence of nurse. ELVA
--- NOTE | 2019-09-27 09:36 | DS ---
DATE OF SERVICE: 09/24/2019 FINAL DIAGNOSIS: 1. Hypertension 2. Chronic kidney disease 3. Chronic anemia 4. Generalized anxiety disorder 5. Dyslipidemia DISCHARGE INSTRUCTIONS: Discharge the patient home. MEDICATIONS AT DISCHARGE: Aspirin Lovastatin Clonidine Carvedilol Losartan Potassium Minoxidil Lasix as before NEW PRESCRIPTIONS: Xanax 0.25mg PO twice a day for a total of 45 tablets with 2 refills. DIET INSTRUCTIONS: Low salt DASH ACTIVITY: As tolerated SMOKING: Nonsmoker DISEASE SPECIFIC EDUCATION: New medication Diet HOSPITAL COURSE: 89 year old white female hospitalized with severe hypertension. Blood pressure was more than 200 with headache. As soon the patient's headache resolved and dizziness resolved blood pressure was brought under control with IV Vasotec and increased dose of Clonidine. The patient on the same medications that she was on before, now is running low blood pressure. The patient has labile hypotension. She is advised not to take her blood pressure ever 2 hourly at home. She is very anxious. Xanax seems to have helped 0.25mg twice a day is going to be given. She is reluctant to take it but I strongly advised her to take it even a half of one 2-3 times a day. The patient was explained about low salt and DASH diet. The patient's creatinine 1.5, BUN 49, hgb 11.1 and hct 34. Potassium 4.6, glucose was 126. CONDITION: Stable. TIME SPENT: More than 60 minutes. MTDD
--- NOTE | 2019-09-27 09:37 | PN ---
09/22/2019: Level 09/23/2019: Intermediate 09/24/2019: D as in discharge MTDD
== END 2019-09-24 13:40 | disposition home or self-care (01) | DRG 305 ==
LOC: ED 01:20 → SCU 07:00 → EDSTATUS 09-23 13:44
PROVIDERS: ADMIT Internal Medicine; ATTEND Internal Medicine
DX: D63.1 Anemia in chronic kidney disease; I16.9 Hypertensive crisis, unspecified; I95.9 Hypotension, unspecified; M19.90 Unspecified osteoarthritis, unspecified site; N18.9 Chronic kidney disease, unspecified; Z79.899 Other long term (current) drug therapy; F41.1 Generalized anxiety disorder; R51 Headache; R60.0 Localized edema; E78.5 Hyperlipidemia, unspecified; I25.810 Atherosclerosis of coronary artery bypass graft(s) without angina pectoris